=== PATIENT | male | born 1990 | race Hispanic/Latino ===

== ENCOUNTER 2020-04-13 20:29 | Emergency (ER) | payer OTHER ==
--- OUTSIDE RECORDS SUMMARY | 2020-04-13 20:32 | XMS REPORT | Continuity of Care Document ---
:1990 Author Organization [facility] t Address [address] [place] [address] Care Team Providers Name Role Phone Unavailable Unavailable Unavailable Problems This patient has no known problems. Allergies, Adverse Reactions, Alerts This patient has no known allergies or adverse reactions. Medications Ordered Filled Start Stop Current Ordering Indication Dosage Frequency Signature Comments Components Source Medication Medication Date Date Medication? Clinician (SIG) Name Name Omeprazole Omeprazole Yes Holger [address] [facility] 8[facility]24 Vasquez 30 minutes [facility] before [facility] 00 morning l meal Outpati ent Clinics Hyoscyamine Hyoscyamine Yes Holger [address] [facility] Sulfate SL Sulfate SL Vasquez under the [facility] tongue and [facility] allow to l dissolve Outpati as needed ent Clinics Ventolin Ventolin Yes Holger [address] [facility] HFA HFA [facility]quez needed [facility] ProAir HFA ProAir HFA Yes Holger INHALE [address] [facility] Vasquez PUFFS BY [facility] MOUTH [facility] EVERY 6 l HOURS Outpati NEEDED ent Clinics Procedures This patient has no known procedures. Encounters Start End Encounter Admission Attending Care Care Encounter Source Date/Time Date/Time Type Type Clinicians Facility Department ID 2020-03-20 2020-03-20 Outpatient [facility] [id number] [facility] 2019-12-13 2019-12-13 Outpatient [facility] [id number] [facility] 2019-12-12 2019-12-12 Outpatient [facility] [id number] [facility] 2019-11-06 2019-11-06 [facility] [id number] [facility] 09:54:00 09:54:00 [facility] [employer] [facility] - Drive [facility] Out[facility] Clin[facility] 2019-11-04 2019-11-04 [facility] [id number] [facility] 13:40:00 13:40:00 [facility] [employer] s - Drive [facility] Out[facility] Clinics 2019-05-02 2019-05-02 [facility] [id number] 08:18:00 08:18:00 t [employer] s - Drive [facility] Out[facility] Clinics 2019-04-03 2019-04-03 [facility] [id number] 09:30:00 09:30:00 t [employer] s - Drive [facility] Out[facility] Clinics 2019-03-20 2019-03-20 [facility] [id number] [address] 09:15:00 09:15:00 [facility] [employer] s - Drive [facility] Out[facility] Clin[facility] 2019-03-19 2019-03-19 [facility] [id number] [address] 16:57:00 16:57:00 [facility] [employer] s - Drive [facility] Out[facility] ent Clinics 2018-12-25 2018-12-25 [facility] [id number] 13:15:00 13:15:00 [facility] [employer] s - Drive [facility] Out[facility] Clinics 2018-09-24 2018-09-24 [facility] [id number] 14[facility]00:00 14:00:00 t [email or web address] s - Drive [facility] Outpati ent Clinics 2018-08-22 2018-08-22 [facility] [id number] [address] 14:45:00 14:45:00 t [employer] [facility] Outpati ent Clinics 2018-05-08 2018-05-08 [facility] [id number] 13:15:00 13:15:00 t [employer] [facility] Outpati ent Clinics 2017-10-04 2017-10-04 [facility] [id number] 11:00:00 11:00:00 t [employer] [facility] Outpati ent Clinics 2017-06-01 2017-06-01 [facility] [id number] 10:30:00 10:30:00 t [employer] [facility] Results This patient has no known results.
--- OUTSIDE RECORDS SUMMARY | 2020-04-13 20:32 | XMS REPORT ---
:1990 Author Organization [facility] Address [address], [address] [place] [address] Care Team Providers Name Role Phone Holger Vasquez Unavailable [phone] PROBLEMS Type Condition ICD9-CM MAS21-HJ Onset Condition SNOMED Code Notes Code Code Dates Status Problem Intermittent J45.20 Active 734817285 asthma without complication, unspecified asthma severity Problem Depression with F41.8 Active 346719247 anxiety Problem Seasonal allergic J30.2 Active 417393095 rhinitis, unspecified trigger Problem Erectile N52.9 Active 543385325 dysfunction, unspecified erectile dysfunction type Problem Adult BMI Z68.41 Active 789353457 40.0-44.9 kg/sq m Problem Subclinical E03.9 Active 21797804 hypothyroidism Problem Mild intermittent J45.20 Active 876542006 asthma without complication Problem Mood disorder F39 Active 84654520 Problem Leukocytosis, D72.829 Active 849355290 unspecified type Problem GERD without K21.9 Active 045201982 esophagitis Problem Mild intermittent J45.21 Active 056234497 asthma with acute exacerbation Problem Mixed E78.2 Active 904708427 hyperlipidemia Problem Fatty liver K76.0 Active 650107451 disease, nonalcoholic Problem Moderate J45.40 Active 476244623 persistent asthma without complication ALLERGIES No Known Allergies ENCOUNTERS from 1990 to 2020-03-20 Encounter Location Date Provider Diagnosis [facility] [address] [place], Holger Vasquez Moderate persistent Drive [address] [place], asthma [facility] [address] complication J 45.40 ; GERD without esophagitis K21 .9 ; Subclinical hypothyroidism E03.9 ; Fatty liver dis ease, nonalcoholic K7 6.0 ; Elevated LFTs R 94.5 ; Depression with anxiety F41.8 ; Mood di sorder F39 ; Seasonal allergic rhinitis, unspe cified trigger J30.2 ; Adult BMI 40.0-44.9 k g/sq m Z68.41 ; Mixed hyperlipidemia E78.2 ; Non-compliant b ehavior R46.89 and Leukocytosis, unspecified typ e D72.829 IMMUNIZATIONS Vaccine Route Administration Date Status Kenalog (Triamcinolone) IM Intramuscular Mar 20, 2019 Adminis tered SOCIAL HISTORY Tobacco Use: Social History Observation Description Date Details (start date - stop date) Never Smoker Sex Assigned At : Social History Observation Description Sex Assigned At Unknown PHQ9 Question Answer Notes Little interest or pleasure in doing things More than half t he days Feeling down, depressed, or hopeless More than half the days Trouble falling or staying asleep or sleeping too More than half the days much Feeling tired or having little energy Nearly every day Poor appetite or overeating Nearly every day Feeling bad about yourself, or that you are a More than half the days failure, or have let yourself or your family down Trouble concentrating on things, such as reading Several day s the newspaper or watching television Moving or speaking so slowly that other people Not at all could have noticed; or the opposite, being so fidgety or restless that you have been moving around a lot more than usual Total Score 15 Interpretation Moderately severe depression Thoughts that you would be better off or of Not at all hurting yourself in some way Alcohol Screen Question Answer Notes Did you have a drink containing alcohol in the past year? No Points 0 Interpretation Negative Tobacco Use/Smoking Question Answer Notes Are you a never smoker REASON FOR REFERRAL No Information VITAL SIGNS Height 65 in Mar, Weight 265 lbs Mar, Temperature 98.4 degrees Fahrenheit Mar, BMI 44.09 kg/m2 Mar, Blood pressure systolic 125 mm Hg Mar, Blood pressure diastolic 79 mm Hg Mar, MEDICATIONS Medication SIG (Take, Route, Notes Start Date End Date Status Frequency, Duration) Symbicort 80-4.5 MCG/ACT 2 puffs Inhalation Twice Active a day for 30 days Omeprazole 40 MG 1 capsule 30 minutes Active before morning meal Orally Once a day for 30 day(s) ProAir HFA 108 (90 Base) INHALE 2 PUFFS BY MOUTH Active MCG/ACT EVERY 6 HOURS NEEDED for 30 days Ventolin HFA 108 (90 Base) 2 puffs as needed Active MCG/ACT Inhalation every 6 hrs for 30 days Hyoscyamine Sulfate SL 1 tablet under the tongue Active 0.125 MG and allow to dissolve as needed Sublingual every 4 hrs PROCEDURES No Information RESULTS No Results REASON FOR VISIT 3 mth lab f/u MEDICAL (GENERAL) HISTORY Type Description Date Medical History GERD without esophagitis Medical History Depression with anxiety Medical History Mood disorder Medical History Intermittent asthma without complication , unspecified asthma severity Medical History Seasonal allergic rhinitis, unspecified trigger Goals Section No Information Health Concerns No Information MEDICAL EQUIPMENT No Information MENTAL STATUS No Information FUNCTIONAL STATUS No Information ASSESSMENTS Encounter Date Diagnosis Assessment Notes Treatment Notes Treatm ent Clinical Notes Mar, Moderate persistent Continue current asthma without regimen. side complication (ICD-10 effect panel - J45.40) discussed. Education given. Asthma action plan given. Mar, GERD without Start omeprazole 40 esophagitis (ICD-10 mg in the morning - K21.9) for the next 2 weeks and then titrate downwards. Side effect panel discussed. Discussed long-term impact of PPI usage., We have discussed the pathophysiology of reflux disease and we discussed lifestyle modifications to avoid reflux that include elevation head of the bed, avoid alcohol, avoid caffeine, avoid maintenance, avoid tight clothing, avoid eating within 3-4 hours before bedtime, and avoiding smoking. Mar, Subclinical Will repeat TSH. hypothyroidism Education given. If (ICD-10 - E03.9) elevated, will start treatment. Mar, Fatty liver disease, Discussed DDX. nonalcoholic (ICD-10 Education given. US - K76.0) reviewed with patient. Encouraged on weight loss and dietary changes. Mar, Elevated LFTs Asymptaomtic. (ICD-10 - R94.5) Discussed DDX. Education given. ?Fatty Liver. Will repeat. Mar, Depression with Strongly encouraged anxiety (ICD-10 - to make appt with F41.8) Rakel Swartz or Dayna Schuster. Education given. Recommended [facility] clinic as well. Declined any medications. Denies SI/HI. Mar, Mood disorder (ICD-10 - F39) Mar, Seasonal allergic Stable with OTC rhinitis, medication. unspecified trigger (ICD-10 - J30.2) Mar, Adult BMI 40.0-44.9 Counseling given. kg/sq m (ICD-10 - Education given. Z68.41) Mar, Mixed hyperlipidemia Diet controlled. (ICD-10 - E78.2) Education given. Mar, Non-compliant behavior (ICD-10 - R46.89) Mar, Leukocytosis, Discussed DDX. unspecified type Education given. (ICD-10 - D72.829) Asymptoamtic Mar, Other -- Medication reviewed and updated. -- Dietary and Lifestyle modifications addressed regarding diet, exercise and weight managemen t. -- Treatment options, risks and benefits, side effects reviewed in detail. -- Advised on signs/symptoms to monitor and when to call clinic and/or visit the nearest ER. Patient verbalized understanding and agreeable with plan. PLAN OF TREATMENT Medication Medication Name Sig Start Date Stop Date ProAir HFA 108 (90 Base) MCG/ACT INHALE 2 PUFFS BY MOUTH EVERY 6 HOURS NEEDED for 30 days Symbicort 80-4.5 MCG/ACT 2 puffs Inhalation Twice a day for 30 days Omeprazole 40 MG 1 capsule 30 minutes before morning meal Orally Once a day for 30 day(s) Treatment Notes Assessment Notes Clinical Notes Moderate persistent asthma without Continue current regimen. side complication effect panel discussed. Education given. Asthma action plan given. GERD without esophagitis Start omeprazole 40 mg in the morning for the next 2 weeks and then titrate downwards. Side effect panel discussed. Discussed long-term impact of PPI usage., We have discussed the pathophysiology of reflux disease and we discussed lifestyle modifications to avoid reflux that include elevation head of the bed, avoid alcohol, avoid caffeine, avoid maintenance, avoid tight clothing, avoid eating within 3-4 hours before bedtime, and avoiding smoking. Subclinical hypothyroidism Will repeat TSH. Education given. If elevated, will start treatment. Fatty liver disease, nonalcoholic Discussed DDX. Education moniuqe kwan. US reviewed with patient. Encouraged on weight loss and dietary changes. Elevated LFTs Asymptaomtic. Discussed DDX. Education given. ?Fatty Liver. Will repeat. Depression with anxiety Strongly encouraged to make appt with Rakel Swartz or Dayna Schuster. Education given. Recommended [facility] as well. Declined any medications. Denies SI/HI. Seasonal allergic rhinitis, Stable with OTC medication. unspecified trigger Adult BMI 40.0-44.9 kg/sq m Counseling given. Education give n. Mixed hyperlipidemia Diet controlled. Education given. Leukocytosis, unspecified type Discussed DDX. Education give n. Asymptoamtic Treatment Notes Test Name Order Date Lipid Panel With LDL/HDL Ratio 2020-03-20 Thyroid Panel With TSH 2020-03-20 Hematopath Consultation, Smear 2020-03-20 Comp. Metabolic Panel (14) (CMP) 2020-03-20 Next Appt Details 3 Months TV + Labs 1 week before Reason: Provider Name:Holger Vasquez, 2020-06-22 09:40:00 AM, [address], [place], [address], Insurance Providers Payer Name Payer Payer Insured Patient Coverage Coverage End Address Phone Name Relationship to Start Date Mitul e Insured [facility] [phone] Chris Asencio [place] [id number] [address] hard COUNT INCLUDES THE [facility] [phone]
[2020-04-13 21:46] LABS: Absolute Lymphocytes (CBC) 3.7 K/uL (0.7-4.9); Basophils % 0.7 % (0-1.3); Hematocrit 46.4 % (39.6-49.0); Lymphocytes % 32.2 % (15.3-44.8); MPV 8.9 fL (7.6-11.3); RBC Red Blood Cell Count 5.34 M/uL (4.33-5.43)
[2020-04-13] MEDS ORDERED: MAGNES/ALUMIN/SIMET 30ML UCUP ONE (21:46)
[2020-04-13] MEDS ORDERED: LIDOCAINE VISCOUS 2% SOLN 15 ML UDC ONE (21:46)
[2020-04-13 22:00] LABS: ALT/SGPT 71 U/L (12-78); AST/SGOT 36 U/L (15-37); Albumin 3.9 g/dL (3.4-5.0); Alkaline Phosphatase 56 U/L (45-117); BUN Blood Urea Nitrogen 6 mg/dL (7-18); Bicarbonate 27 mmol/L (21-32); Bilirubin Direct < 0.1 mg/dL (0-0.2); Bilirubin Total 0.4 mg/dL (0.2-1.0); Glucose Level 96 mg/dL (74-106); NT PRO-BNP 13 pg/mL (<125); Protein, Total 7.7 g/dL (6.4-8.2); Sodium Level 142 mmol/L (136-145); Troponin (Emerg Dept Use Only) < 0.02 ng/mL (0.0-0.045)
[2020-04-13 22:56] LABS: SARS-COV-2 RT PCR NEGATIVE (NEGATIVE)
--- NOTE | 2020-04-13 23:02 | EDPHYS ---
Physician Documentation [facility] Name: Kenton Asencio Age: 29 yrs Sex: Male : 1990 Arrival Date: 04/13/2020 Time: 20:33 Bed 7 Private MD: ED Physician Ayo Benson HPI: 04/13 21:28 This 29 yrs old Male presents to ER via Ambulatory with complaints of Chest rn Pain, Breathing Difficulty. 21:28 The patient or guardian reports chest pain that is located primarily in the substernal rn area. The pain does not radiate. Associated signs and symptoms: Pertinent negatives: abdominal pain, diaphoresis, lower extremity pain, lower extremity swelling, palpitations, shortness of breath, syncope, vomiting. The chest pain is described as aching. Duration: The patient or guardian reports multiple episodes, that are intermittent. Modifying factors: The symptoms are alleviated by nothing. the symptoms are aggravated by nothing. Severity of pain: At its worst the pain was mild in the emergency department the pain is unchanged. The patient has not experienced similar symptoms in the past. The patient has not recently seen a physician. Reports substernal chest pain, dull/achy, non-radiating, no fever/cough. No sick contacts. Reports pain can last for hours. No abd pain. NO famhx of early cardiac problems. No trauma. . Historical: - Allergies: 21:04 No Known Allergies; ca1 - Home Meds: 21:04 Omeprazole Oral [Active]; Albuterol Inhl [Active]; ca1 - PMHx: 21:04 Asthma; ca1 - PSHx: 21:04 None; ca1 - Immunization history:: Flu vaccine is not up to date. - Social history:: Smoking status: Patient denies any tobacco usage or history of. - Family history:: not pertinent. - Hospitalizations: : No recent hospitalization is reported. ROS: 21:28 Constitutional: Negative for fever, chills, and weight loss, Eyes: Negative for injury, rn pain, redness, and discharge, Neck: Negative for injury, pain, and swelling, Cardiovascular: Negative for palpitations, and edema, Respiratory: Negative for shortness of breath, cough, wheezing Abdomen/GI: Negative for abdominal pain, nausea, vomiting, diarrhea, and constipation, Back: Negative for injury and pain, MS/Extremity: Negative for injury and deformity, Skin: Negative for injury, rash, and discoloration, Neuro: Negative for headache, weakness, numbness, tingling, and seizure. Exam: 21:28 Constitutional: This is a well developed, well nourished patient who is awake, alert, rn and in no acute distress. Head/Face: Normocephalic, atraumatic. Cardiovascular: Tachycardic, regular. No pulse deficits. Respiratory: No increased work of breathing, no retractions or nasal flaring. Abdomen/GI: soft, non-tender Skin: Warm, dry MS/ Extremity: Pulses equal, no cyanosis. Neurovascular intact. Full, normal range of motion. Equal circumference. Neuro: Awake and alert, GCS 15, oriented to person, place, time, and situation. Vital Signs: 21:01 BP 123 / 70; Pulse 108; Resp 18 S; Temp 98.9(TE); Pulse Ox 99% on R/A; Weight 99.79 kg ca1 (R); Height 5 ft. 5 in. (165.10 cm) (R); Pain 0/10; 22:44 BP 114 / 75; Pulse 95; Resp 18; Pulse Ox 100% ; ea 21:01 Body Mass Index 36.61 (99.79 kg, 165.10 cm) ca1 MDM: 21:13 Patient medically screened. rn 22:59 Differential diagnosis: acute pericarditis, chest wall pain, costochondritis, rn gastroesophageal reflux disease (GERD), pleurisy, pneumonia, pneumothorax, pulmonary embolus. Data reviewed: vital signs, nurses notes, lab test result(s), EKG, radiologic studies, plain films, and as a result, I will discharge patient. Counseling: I had a detailed discussion with the patient and/or guardian regarding: the historical points, exam findings, and any diagnostic results supporting the discharge/admit diagnosis, lab results, radiology results, the need for outpatient follow up, to return to the emergency department if symptoms worsen or persist or if there are any questions or concerns that arise at home. Special discussion: Based on the patient's history, exam, and Dx evaluation, there is no indication for emergent intervention or inpatient Tx. It is understood by the patient/guardian that if the Sx's persist or worsen they need to return immediately for re-evaluation. I discussed with the patient/guardian in detail that at this point there is no indication for admission to the hospital. It is understood, however, that if the symptoms persist or worsen the patient needs to return immediately for re-evaluation. ED course: No acute findings in bloodwork or ecg/chest xray. Neg d-dimer, neg covid/flu. Will dc home with pcp f/u.. 04/13 21:21 Order name: Basic Metabolic Panel; Complete Time: 22:02 rn 04/13 21:21 Order name: CBC with Diff; Complete Time: 22: rn 04/13 21:21 Order name: LFT's; Complete Time: 22:02 rn 04/13 21:21 Order name: NT PRO-BNP; Complete Time: 22: rn 04/13 21:21 Order name: Troponin (emerg Dept Use Only); Complete Time: 22: rn 04/13 21:21 Order name: XRAY Chest (1 view) rn 04/13 21:21 Order name: EKG; Complete Time: 21:24 rn 04/13 21:21 Order name: Cardiac monitoring; Complete Time: 21:21 rn 04/13 21:21 Order name: EKG - Nurse/Tech; Complete Time: 21:21 rn 04/13 21:23 Order name: D-Dimer; Complete Time: 22:02 rn 04/13 22:57 Order name: COVID-19/FLU A+B; Complete Time: 22:59 EDWV 04/13 21:21 Order name: IV Saline Lock; Complete Time: 21:30 rn 04/13 21:21 Order name: Labs collected and sent; Complete Time: 21:30 rn 04/13 21:21 Order name: O2 Per Protocol; Complete Time: 21: rn 04/13 21:21 Order name: O2 Sat Monitoring; Complete Time: 21:21 rn Administered Medications: 21:32 Drug: GI Cocktail without - (Maalox Suspension 30 ml, Lidocaine Liquid 2 % 15 ea ml) Route: PO; 23:19 Follow up: Response: No adverse reaction ea Disposition: 04/13/20 23:01 Discharged to Home. Impression: Chest pain, unspecified. - Condition is Stable. - Discharge Instructions: Nonspecific Chest Pain. - Medication Reconciliation Form, Thank You Letter, Antibiotic Education, Prescription Opioid Use form. - Follow up: Private Physician; When: As needed; Reason: Recheck today's complaints, Re-evaluation by your physician. - Problem is new. - Symptoms have improved. Signatures: Dispatcher [employer] EDWV Ayo Benson MD MD rn Antunez, Elena RN Chelo Cota ea RN RN ca1 Corrections: (The following items were deleted from the chart) 21:58 21:26 Influenza Screen (A \T\ B)+BA.LAB.BRZ ordered. [facility] 23:21 23:01 04/13/2020 23:01 Discharged to Home. Impression: Chest pain, unspecified. ea Condition is Stable. Forms are Medication Reconciliation Form, Thank You Letter, Antibiotic Education, Prescription Opioid Use. Follow up: Private Physician; When: As needed; Reason: Recheck today's complaints, Re-evaluation by your physician. Problem is new. Symptoms have improved. rn
--- NOTE | 2020-04-13 23:02 | ER ---
Nurse's Notes [facility] Name: Kenton Asencio Age: 29 yrs Sex: Male : 1990 Arrival Date: 04/13/2020 Time: 20:33 Bed 7 Private MD: Diagnosis: Chest pain, unspecified Presentation: 04/13 21:01 Chief complaint: Patient states: Chest pain, SOB, fatigue x 2 days. Denies fever. ca1 Denies cough. Coronavirus screen: Client denies travel out of the [place] in the last 14 days. fatigue, shortness of breath, Client presents with at least one sign or symptom that may indicate coronavirus-19. Standard/surgical mask placed on the client. Provider contacted for isolation considerations. Ebola Screen: Patient negative for fever greater than or equal to 101.5 degrees Fahrenheit, and additional compatible Ebola Virus Disease symptoms Patient denies exposure to infectious person. Patient denies travel to an Ebola-affected area in the 21 days before illness onset. No symptoms or risks identified at this time. Initial Sepsis Screen: Does the patient meet any 2 criteria? No. Patient's initial sepsis screen is negative. Does the patient have a suspected source of infection? No. Patient's initial sepsis screen is negative. Risk Assessment: Do you want to hurt yourself or someone else? Patient reports no desire to harm self or others. Onset of symptoms was April 13, 2020. 21:01 Method Of Arrival: Ambulatory ca1 21:01 Acuity: MEREDITH 3 ca1 Historical: - Allergies: 21:04 No Known Allergies; ca1 - Home Meds: 21:04 Omeprazole Oral [Active]; Albuterol Inhl [Active]; ca1 - PMHx: 21:04 Asthma; ca1 - PSHx: 21:04 None; ca1 - Immunization history:: Flu vaccine is not up to date. - Social history:: Smoking status: Patient denies any tobacco usage or history of. - Family history:: not pertinent. - Hospitalizations: : No recent hospitalization is reported. Screenin:10 Abuse screen: Denies threats or abuse. Nutritional screening: No deficits noted. ea Tuberculosis screening: No symptoms or risk factors identified. Fall Risk None identified. Assessment: 21:17 General: Appears in no apparent distress. Behavior is calm, cooperative, appropriate ea for age. Pain: Complains of pain in mid-sternal area. Neuro: Level of Consciousness is awake, alert, obeys commands, Oriented to person, place, time. Cardiovascular: Patient's skin is warm and dry. Respiratory: Airway is patent Respiratory effort is even, unlabored, Respiratory pattern is regular, symmetrical. Derm: Skin is pink, warm \T\ dry. 22:44 Reassessment: Patient and/or family updated on plan of care and expected duration. Pain ea level reassessed. Patient is alert, oriented x 3, equal unlabored respirations, skin warm/dry/pink. 23:19 Reassessment: Patient and/or family updated on plan of care and expected duration. Pain ea level reassessed. Patient is alert, oriented x 3, equal unlabored respirations, skin warm/dry/pink. Discharge instruction given to patient, verbalized the understanding of instruction. Pt left ED ambulatory tolerating well. Vital Signs: 21:01 BP 123 / 70; Pulse 108; Resp 18 S; Temp 98.9(TE); Pulse Ox 99% on R/A; Weight 99.79 kg ca1 (R); Height 5 ft. 5 in. (165.10 cm) (R); Pain 0/10; 22:44 BP 114 / 75; Pulse 95; Resp 18; Pulse Ox 100% ; ea 21:01 Body Mass Index 36.61 (99.79 kg, 165.10 cm) ca1 ED Course: 20:33 Patient arrived in ED. bp1 21:03 Triage completed. ca1 21:04 Arm band placed on right wrist. ca1 21:10 Thad Bailey RN is Primary Nurse. rr5 21:11 Patient has correct armband on for positive identification. Bed in low position. Call ea light in reach. crane operator cab on. Pulse ox on. NIBP on. 21:11 Patient maintains SpO2 saturation greater than 95% on room air. ea 21:13 Ayo Benson MD is Attending Physician. rn 21:25 Inserted saline lock: 20 gauge in right antecubital area, using aseptic technique. ds4 Blood collected. 21:50 COVID swab sent to lab. Flu and/or RSV swab sent to lab. rr5 21:53 XRAY Chest (1 view) In Process Unspecified. EDMS 23:15 No provider procedures requiring assistance completed. IV discontinued, intact, ea bleeding controlled, No redness/swelling at site. Pressure dressing applied. Administered Medications: 21:32 Drug: GI Cocktail without - (Maalox Suspension 30 ml, Lidocaine Liquid 2 % 15 ea ml) Route: PO; 23:19 Follow up: Response: No adverse reaction ea Outcome: 23:01 Discharge ordered by . rn 23:20 Discharged to home ambulatory. ea 23:20 Condition: stable 23:20 Discharge instructions given to patient, Instructed on discharge instructions, follow ea up and referral plans. Demonstrated understanding of instructions, follow-up care. 23:21 Patient left the ED. ea Signatures: Dispatcher [employer] EDMS Ayo Benson MD MD rn Swanson, Donovan ds4 Guadalupe Colon RN RN ea Roque, Raymond, RN RN rr5 Chelo Ramos RN RN Haley Kinney bp1
[2020-04-14 03:12] VITALS: TEMP 98.9
[2020-04-14 03:13] VITALS: BP 114/75; O2SAT 100
--- NOTE | 2020-04-14 12:54 | EKG ---
Test Date: 2020-04-13 Test Time: 21:14:11 College And Career Counselor: RR MEASUREMENT RESULTS: Intervals: Rate: 111 [place]: 132 QRSD: 84 QT: 332 QTc: 451 [place]: P: 61 [place]: 132 QRS: 42 T: 26 INTERPRETIVE STATEMENTS: Sinus tachycardia Otherwise normal ECG Compared to ECG 01/05/2016 14:07:33 No significant changes Electronically Signed On 04-14-20 12:53:07 INDOOR LANDSCAPE ARCHITECT by Misael Ledesma
--- NOTE | 2020-04-14 13:06 | RAD REPORT ---
EXAM DESCRIPTION: XR Chest, 1 View CLINICAL HISTORY: CHEST PAIN TECHNIQUE: Frontal view of the chest. COMPARISON: No relevant prior studies available. FINDINGS: Lungs: No consolidation. Symmetrical vascular pattern. Pleural space: No pneumothorax. No pleural effusion. Heart: Normal cardiac size and configuration. Mediastinum: No abnormality noted. Bones/joints: No osseous destruction or sclerosis noted. IMPRESSION: No abnormality noted. Electronically signed by: Randi Layne MD 04/13/2020 10:01 PM OUTBOUND SALES SPECIALIST Due to temporary technical issues with the PACS/Fluency reporting system, reports are being signed by the in house radiologists without review as a courtesy to insure prompt reporting. The interpreting radiologist is fully responsible for the content of the report.
== END 2020-04-13 23:21 | disposition home or self-care (01) ==
LOC: ER 20:29
DX: R07.9 Chest pain, unspecified (principal); J45.909 Unspecified asthma, uncomplicated; Z20.822 Contact with and (suspected) exposure to COVID-19
CPT/HCPCS: 93005; 85025; 80048; 36415; 85379; 80076; 84484; 83880; 0240U; 71045; 99285

== ENCOUNTER 2021-02-19 17:09 | Emergency (ER) | payer OTHER ==
--- OUTSIDE RECORDS SUMMARY | 2021-02-19 17:11 | XMS REPORT | Continuity of Care Document ---
:1990 Author Organization [facility] t Address [address] [place] [address] Care Team Providers Name Role Phone Unavailable [...] Date/Time Type Type Clinicians Facility Department ID 2021-02-18 2021-02-18 ambulatory [facility] [id number] [facility] 2020-09-17 2020-09-17 Outpatient [facility] [id number] [facility] 2020-07-30 2020-07-30 [facility] [id number] [facility] 2020-06-12 2020-06-12 Out[facility] [id number] [facility] 2020-06-12 2020-06-12 [facility] [id number] [facility] 2020-06-02 2020-06-02 Out[facility] [id number] [facility] 2020-05-28 2020-05-28 Out[facility] [id number] [facility] 2020-03-20 2020-03-20 Out[facility] [id number] [facility] 2019-12-13 2019-12-13 Out[facility] [id number] [facility] 2019-12-12 2019-12-12 Out[facility] [id number] [facility] 2019-11-06 2019-11-06 [facility] [id number] [facility] 09:54:00 09:54:[address] [place] [address] [employer] [facility] 2019-11-04 2019-11-04 [facility] [id number] [facility] 13:40:00 13:40:[address] [address] [employer] [address] - Drive [facility] Clinics 2019-05-02 2019-05-02 [facility] [id number] [facility] 08:18:00 08:18:[address] [place] [address] [employer] [address] - [address] [facility] Outpat[facility] Clinics 2019-04-03 2019-04-03 [facility] [id number] [facility] 09:30:00 09:30:00 [place] [employer] - [address] [facility] Medicine Outpati ent Clinics 2019-03-20 2019-03-20 [facility] [id number] 09:15:00 09:15:00 [place] [employer] [address] [facility] Outpati [facility] Clinics 2019-03-19 2019-03-19 [facility] [id number] [facility] 16:57:00 16:57:00 [place] [employer] [address] [facility] Medicine Outpati [facility] Clinics 2018-12-25 2018-12-25 [facility] [id number] [address] 13:15:00 13:15:00 [place] [employer] [address] [facility] Outpati [facility] Clinics 2018-09-24 2018-09-24 [facility] [id number] 14:00:00 14:00:00 [place] [employer] [address] [facility] Medicine Outpati ent Clinics 2018-08-22 2018-08-22 [facility] [id number] [facility] 14:45:00 14:45:00 [place] [employer] [address] - [address] [facility] Medicine Outpati ent Clinics 2018-05-08 2018-05-08 [facility] [id number] [facility] 13:15:00 13:15:00 [place] [employer] [address] [facility] Medicine Outpati ent Clinics 2017-10-04 2017-10-04 [facility] [id number] 11:00:00 11:00:00 [place] [employer] [address] [facility] Medicine Outpati ent Clinics 2017-06-01 2017-06-01 [facility] [id number] 10:30:00 10:30:00 [place] [employer] [address] [facility] Medicine Outpati [facility] Clinics Results This patient has no known results.
[2021-02-19 20:00] LABS: SARS-COV-2 RT PCR NEGATIVE (NEGATIVE)
--- NOTE | 2021-02-19 20:57 | ER ---
Nurse's Notes [facility] Name: Kenton Asencio Age: 30 yrs Sex: Male : 1990 Arrival Date: 02/19/2021 Time: 17:11 Bed 18 Private MD: Diagnosis: Chest pain on breathing;Chest pain, unspecified Presentation: 02/19 18:22 Chief complaint: Patient states: dry cough, breathing difficulty and chest tightness x4 vg1 days. States when taking a deep breath has a 'stinging' sensation to upper right side of chest. States has hx of bronchitis and pneumonia. Denies NVD. Coronavirus screen: Vaccine status: Patient reports being unvaccinated. Client denies travel out of the [place] in the last 14 days. Client presents with at least one sign or symptom that may indicate coronavirus-19. Standard/surgical mask placed on the client. Provider contacted for isolation considerations. Ebola Screen: Patient negative for fever greater than or equal to 101.5 degrees Fahrenheit, and additional compatible Ebola Virus Disease symptoms. Initial Sepsis Screen: Does the patient meet any 2 criteria? No. Patient's initial sepsis screen is negative. Does the patient have a suspected source of infection? No. Patient's initial sepsis screen is negative. Risk Assessment: Do you want to hurt yourself or someone else? Patient reports no desire to harm self or others. Onset of symptoms was February 15, 2021. 18:22 Method Of Arrival: Ambulatory vg1 18:22 Acuity: MEREDITH 3 vg1 Triage Assessment: 18:24 General: Appears in no apparent distress. comfortable, Behavior is calm, cooperative. vg1 Pain: Complains of pain in anterior aspect of right upper chest Pain currently is 0 out of 10 on a pain scale. Respiratory: Reports cough that is dry, Airway is patent Respiratory effort is even, unlabored. Historical: - Allergies: 18:24 No Known Allergies; vg1 - Home Meds: 18:24 Albuterol Inhl [Active]; Omeprazole Oral [Active]; vg1 - PMHx: 18:24 Asthma; vg1 - PSHx: 18:24 None; vg1 - Immunization history:: Client reports having NOT received the Covid vaccine. - Social history:: Smoking status: Patient denies any tobacco usage or history of. - Family history:: not pertinent. Screenin:11 Abuse screen: Denies threats or abuse. Denies injuries from another. Nutritional 5 screening: No deficits noted. Tuberculosis screening: No symptoms or risk factors identified. Fall Risk None identified. Assessment: 22:44 General: Appears in no apparent distress. Behavior is calm, cooperative. Pain: 5 Complains of pain in chest Pain does not radiate. Quality of pain is described as crushing, Pain began 2-3 days ago. Neuro: Level of Consciousness is awake, alert, Oriented to person, place, time, situation. Cardiovascular: Reports chest pain, shortness of breath, Capillary refill < 3 seconds Patient's skin is warm and dry. Respiratory: Reports shortness of breath Airway is patent Trachea midline Respiratory effort is even, unlabored. GI: No deficits noted. : No deficits noted. 23:00 Reassessment: No changes from previously documented assessment. 5 02/20 00:00 Reassessment: No changes from previously documented assessment. [facility] Vital Signs: 02/19 18:22 BP 123 / 82; Pulse 92; Resp 16; Temp 98.6; Pulse Ox 98% ; Weight 129.27 kg; Height 5 vg1 ft. 5 in. (165.10 cm); Pain 0/10; 22:47 BP 130 / 87; Pulse 71; Resp 18; Pulse Ox 100% on R/A; 5 02/20 00:00 BP 132 / 80; Pulse 90; Resp 18; Pulse Ox 99% on R/A; 5 02/19 18:22 Body Mass Index 47.43 (129.27 kg, 165.10 cm) 1 ED Course: 02/19 17:11 Patient arrived in ED. as 18:24 Triage completed. vg1 18:24 Arm band placed on. vg1 18:28 COVID swab sent to lab. Flu and/or RSV swab sent to lab. vg1 20:52 Phil Talley MD is Attending Physician. [facility] 21:12 Sepideh Harmon, XI is Primary Nurse. 5 22:08 Troponin (emerg Dept Use Only) Sent. 5 22:09 PT-INR Sent. sm5 22:09 NT PRO-BNP Sent. sm5 22:09 Magnesium Sent. 5 22:09 LFT's Sent. 5 22:09 CBC with Diff Sent. sm5 22:09 Basic Metabolic Panel Sent. sm5 22:09 Lipase Sent. sm5 22:10 Inserted saline lock: 20 gauge in right antecubital area, using aseptic technique. sm5 Blood collected. 22:11 Patient has correct armband on for positive identification. Bed in low position. Call sm5 light in reach. media monitor on. Pulse ox on. NIBP on. 22:11 No provider procedures requiring assistance completed. Patient maintains SpO2 sm5 saturation greater than 95% on room air. 22:21 XRAY Chest (1 view) Sent. sm5 22:27 XRAY Chest (1 view) In Process Unspecified. EDCA 02/20 00:01 CT Chest For PE Angio In Process Unspecified. EDCA 00:34 Misael Ledesma MD is Referral Physician. [facility] 00:51 IV discontinued, intact, bleeding controlled, No redness/swelling at site. Pressure sm5 dressing applied. Administered Medications: 02/19 22:20 Drug: NS 0.9% 1000 ml Route: IV; Rate: 1 bolus; Site: right antecubital; sm5 23:15 Follow up: IV Status: Completed infusion; IV Intake: 1000ml sm5 22:20 Drug: Aspirin Chewable Tablet 324 mg Route: PO; sm5 12 00:51 Follow up: Response: No adverse reaction sm5 Intake: 02/19 23:15 IV: 1000ml; Total: 1000ml. 5 Outcome: 20:57 Patient left the ED. ld1 02/20 00:34 Discharge ordered by . harpreet 00:50 Discharged to home ambulatory. sm5 00:50 Condition: good 00:50 Discharge instructions given to patient, Instructed on discharge instructions, follow up and referral plans. medication usage, Demonstrated understanding of instructions, follow-up care, medications, Prescriptions given X 2. 00:51 Patient left the ED. 5 Signatures: Dispatcher [employer] [facility] Phil Talley MD MD cha Martinez, Amelia as Garcia, Victoria, RN RN vg1 Sakina Jacome RN RN ld1 Sepideh Harmon, XI RN sm5 Corrections: (The following items were deleted from the chart) 02/19 21:06 20:56 Reassessment: Called from lobby. Pt was not here. ld1 ld1
[2021-02-19 21:03] VITALS: TEMP 98.6
[2021-02-19] MEDS ORDERED: NA CHLORIDE 0.9% 1,000 ML ONE (22:14)
[2021-02-19] MEDS ORDERED: ASPIRIN 81 MG CHEWABLE TABLET ONE (22:14)
[2021-02-19 22:18] LABS: Basophils % 0.5 % (0-1.3); Hematocrit 47.8 % (39.6-49.0); Lymphocytes % 23.2 % (15.3-44.8); MPV 8.3 fL (7.6-11.3); RBC Red Blood Cell Count 5.42 M/uL (4.33-5.43)
[2021-02-19 22:36] LABS: Protime INR 1.03
[2021-02-19 22:40] LABS: ALT/SGPT 47 U/L (12-78); Albumin 3.9 g/dL (3.4-5.0); Alkaline Phosphatase 50 U/L (45-117); BUN Blood Urea Nitrogen 12 mg/dL (7-18); Bicarbonate 27 mmol/L (21-32); Bilirubin Direct 0.1 mg/dL (0-0.2); Bilirubin Total 0.5 mg/dL (0.2-1.0); Glucose Level 91 mg/dL (74-106); Lipase 96 U/L (73-393); NT PRO-BNP 13 pg/mL (<125); Protein, Total 7.8 g/dL (6.4-8.2); Sodium Level 141 mmol/L (136-145); Troponin (Emerg Dept Use Only) < 0.02 ng/mL (0.0-0.045)
[2021-02-19 22:41] LABS: AST/SGOT 25 U/L (15-37); Magnesium 2.4 mg/dL (1.8-2.4); Potassium 4.3 mmol/L (3.5-5.1)
--- NOTE | 2021-02-20 00:36 | EDPHYS ---
Physician Documentation [facility] Name: Kenton Asencio Age: 30 yrs Sex: Male : 1990 Arrival Date: 02/19/2021 Time: 17:11 Bed 18 Private MD: ED Physician Phil Talley HPI: 02/19 21:52 This 30 yrs old Male presents to ER via Ambulatory with complaints of Chest harpreet Pressure, Breathing Difficulty. 21:52 The patient or guardian reports chest pain that is located primarily in the substernal harpreet area, anterior chest wall, right. The pain does not radiate. Associated signs and symptoms: Pertinent positives: shortness of breath. The chest pain is described as sharp. Duration: The patient or guardian reports multiple episodes, that wax and wane. Modifying factors: The symptoms are alleviated by remaining still, the symptoms are aggravated by deep breath, movement. The patient has not experienced similar symptoms in the past. Historical: - Allergies: 18:24 No Known Allergies; vg1 - Home Meds: 18:24 Albuterol Inhl [Active]; Omeprazole Oral [Active]; vg1 - PMHx: 18:24 Asthma; vg1 - PSHx: 18:24 None; vg1 - Immunization history:: Client reports having NOT received the Covid vaccine. - Social history:: Smoking status: Patient denies any tobacco usage or history of. - Family history:: not pertinent. ROS: 21:52 Constitutional: Negative for fever, chills, and weight loss, Eyes: Negative for injury, harpreet pain, redness, and discharge, ENT: Negative for injury, pain, and discharge, Neck: Negative for injury, pain, and swelling, Cardiovascular: Negative for chest pain, palpitations, and edema, Abdomen/GI: Negative for abdominal pain, nausea, vomiting, diarrhea, and constipation, Back: Negative for injury and pain, : Negative for injury, bleeding, discharge, and swelling, MS/Extremity: Negative for injury and deformity, Skin: Negative for injury, rash, and discoloration, Neuro: Negative for headache, weakness, numbness, tingling, and seizure, Psych: Negative for depression, anxiety, suicide ideation, homicidal ideation, and hallucinations, Allergy/Immunology: Negative for hives, rash, and allergies, Endocrine: Negative for neck swelling, polydipsia, polyuria, polyphagia, and marked weight changes, Hematologic/Lymphatic: Negative for swollen nodes, abnormal bleeding, and unusual bruising. 21:52 Respiratory: Positive for cough, shortness of breath, at rest. Exam: 21:52 Constitutional: This is a well developed, well nourished patient who is awake, alert, harpreet and in no acute distress. Head/Face: Normocephalic, atraumatic. Eyes: Pupils equal round and reactive to light, extra-ocular motions intact. Lids and lashes normal. Conjunctiva and sclera are non-icteric and not injected. Cornea within normal limits. Periorbital areas with no swelling, redness, or edema. ENT: Nares patent. No nasal discharge, no septal abnormalities noted. Tympanic membranes are normal and external auditory canals are clear. Oropharynx with no redness, swelling, or masses, exudates, or evidence of obstruction, uvula midline. Mucous membranes moist. Neck: Trachea midline, no thyromegaly or masses palpated, and no cervical lymphadenopathy. Supple, full range of motion without nuchal rigidity, or vertebral point tenderness. No Meningismus. Chest/axilla: Normal chest wall appearance and motion. Nontender with no deformity. No lesions are appreciated. Cardiovascular: Regular rate and rhythm with a normal S1 and S2. No gallops, murmurs, or rubs. Normal PMI, no JVD. No pulse deficits. Respiratory: Lungs have equal breath sounds bilaterally, clear to auscultation and percussion. No rales, rhonchi or wheezes noted. No increased work of breathing, no retractions or nasal flaring. Abdomen/GI: Soft, non-tender, with normal bowel sounds. No distension or tympany. No guarding or rebound. No evidence of tenderness throughout. Back: No spinal tenderness. No costovertebral tenderness. Full range of motion. Skin: Warm, dry with normal turgor. Normal color with no rashes, no lesions, and no evidence of cellulitis. MS/ Extremity: Pulses equal, no cyanosis. Neurovascular intact. Full, normal range of motion. Neuro: Awake and alert, GCS 15, oriented to person, place, time, and situation. Cranial nerves II-XII grossly intact. Motor strength 5/5 in all extremities. Sensory grossly intact. Cerebellar exam normal. Normal gait. Psych: Awake, alert, with orientation to person, place and time. Behavior, mood, and affect are within normal limits. 21:54 Musculoskeletal/extremity: DVT Exam: No signs of deep vein thrombosis. no pain, no harpreet swelling, no tenderness, negative Homans' sign noted on exam, no appreciated bluish discoloration, no erythema, no increased warmth. 22:23 ECG was reviewed by the Attending Physician. [facility] Vital Signs: 18:22 BP 123 / 82; Pulse 92; Resp 16; Temp 98.6; Pulse Ox 98% ; Weight 129.27 kg; Height 5 vg1 ft. 5 in. (165.10 cm); Pain 0/10; 22:47 BP 130 / 87; Pulse 71; Resp 18; Pulse Ox 100% on R/A; sm5 02/20 00:00 BP 132 / 80; Pulse 90; Resp 18; Pulse Ox 99% on R/A; sm5 02/19 18:22 Body Mass Index 47.43 (129.27 kg, 165.10 cm) vg1 MDM: 02/19 20:52 Patient medically screened. [facility] 21:54 Differential diagnosis: abnormal EKG, acute myocardial infarction, coronary artery harpreet disease chest wall pain, congestive heart failure esophagitis, gastritis, hiatal hernia, pancreatitis, pneumonia, pulmonary embolus, stable angina, unstable angina. HEART Score: History: Slightly Suspicious (0), ECG: Normal (0), Age: < or = 45 years (0), Risk Factors: No Risk Factors Known (0). The patient's deep vein thrombosis risk score was calculated as follows: Total Score: 0. This patient was found to be at low risk for a deep vein thrombosis by using the Well's assessment criteria. The patient's pulmonary embolism risk score was calculated as follows: Total Score: 0-2 points. This patient was found to be at low risk for a pulmonary embolism by using the Well's assessment criteria. SCHUYLER Risk Score: TOTAL SCORE = 0. Data reviewed: vital signs, nurses notes, lab test result(s), EKG, radiologic studies, CT scan, plain films. Data interpreted: surveillance monitor: rate is 92 beats/min, rhythm is regular, Pulse oximetry: on room air is 98 %. Test interpretation: by ED physician or midlevel provider: ECG, plain radiologic studies. Counseling: I had a detailed discussion with the patient and/or guardian regarding: the historical points, exam findings, and any diagnostic results supporting the discharge/admit diagnosis, lab results, radiology results, the need for outpatient follow up, for definitive care, a research scholar, a family practitioner. 02/19 18:28 Order name: COVID-19/FLU A+B (Document "Date of Onset" if Symptomatic); Complete Time: vg1 21:51 02/19 21:52 Order name: Basic Metabolic Panel; Complete Time: 00:06 [facility] 02/19 21:52 Order name: CBC with Diff; Complete Time: 00:06 [facility] 02/19 21:52 Order name: LFT's; Complete Time: 00:06 [facility] 02/19 21:52 Order name: Magnesium; Complete Time: 00: [facility] 02/19 21:52 Order name: NT PRO-BNP; Complete Time: 00:06 [facility] 02/19 21:52 Order name: PT-INR; Complete Time: 00:06 [facility] 02/19 21:52 Order name: Troponin (emerg Dept Use Only); Complete Time: 00:06 [facility] 02/19 21:52 Order name: XRAY Chest (1 view) [facility] 02/19 21:52 Order name: EKG; Complete Time: : [facility] 02/19 21:52 Order name: CT Chest For PE Angio [facility] 02/19 21:52 Order name: Lipase; Complete Time: 00:06 [facility] 02/19 21:52 Order name: Cardiac monitoring; Complete Time: 22:21 [facility] 02/19 21:52 Order name: EKG - Nurse/Tech; Complete Time: 22: [facility] 02/19 21:52 Order name: IV Saline Lock; Complete Time: 22: [facility] 02/19 21:52 Order name: Labs collected and sent; Complete Time: 22: [facility] 02/19 21:52 Order name: O2 Per Protocol; Complete Time: 22: [facility] 02/19 21:52 Order name: O2 Sat Monitoring; Complete Time: 22: [facility] EC:23 Rate is 81 beats/min. Rhythm is regular. QRS [place] is Normal. IN interval is normal. QRS harpreet interval is normal. QT interval is normal. No Q waves. T waves are Normal. No ST changes noted. Clinical impression: NSR w/ Non-specific ST/T Changes and No evidence of ischemia. Interpreted by me. Reviewed by me. Administered Medications: 22:20 Drug: NS 0.9% 1000 ml Route: IV; Rate: 1 bolus; Site: right antecubital; 5 23:15 Follow up: IV Status: Completed infusion; IV Intake: 1000ml 5 22:20 Drug: Aspirin Chewable Tablet 324 mg Route: PO; 5 02/20 00:51 Follow up: Response: No adverse reaction [facility] Disposition Summary: 02/20/21 00:34 Discharge Ordered Location: Home harpreet Problem: new harpreet Symptoms: have improved harpreet Condition: Stable harpreet Diagnosis - Chest pain on breathing harpreet - Chest pain, unspecified harpreet Followup: harpreet - With: Private Physician - When: 2 - 3 days - Reason: Recheck today's complaints, Continuance of care, Re-evaluation by your physician Followup: harpreet - With: - When: 2 - 3 days - Reason: Recheck today's complaints, Re-evaluation by your physician Discharge Instructions: - Discharge Summary Sheet harpreet - Nonspecific Chest Pain, Adult harpreet - Nonspecific Chest Pain, Adult, [id number] - Aspirin and Your Heart [facility] Forms: - Medication Reconciliation Form [facility] - Thank You Letter [facility] - Antibiotic Education harpreet - Prescription Opioid Use [facility] Prescriptions: - Ibuprofen 600 mg Oral Tablet - take 1 tablet by ORAL route every 6 hours As needed take with food; 21 tablet; [facility] Refills: 0, Product Selection Permitted - Pepcid 20 mg Oral Tablet - take 1 tablet by ORAL route every 12 hours for 10 days; 20 tablet; Refills: 0, [facility] Product Selection Permitted Signatures: Dispatcher [employer] Phil Irvin MD MD cha Garcia, Victoria RN RN vg1 Sakina Jacome RN RN ld1 Sepideh Harmon RN RN sm5 Corrections: (The following items were deleted from the chart) 02/19 21:05 20:56 before being seen by provider 1 ld1 21:05 20:56 wait time [place] [id number]
[2021-02-20 01:06] VITALS: BP 132/80; O2SAT 99
--- NOTE | 2021-02-20 07:59 | RAD REPORT ---
EXAM DESCRIPTION: RAD - Chest Single View - 02/19/2021 10:27 pm CLINICAL HISTORY: COUGH COMPARISON: Chest Single View dated 04/13/2020; Chest Single View dated 01/06/2016; Chest Pa And Lat ( 2 Views) dated 01/05/2016; CHEST SINGLE VIEW dated 09/09/2012 FINDINGS: Lines: None. Lungs: No evidence of edema or pneumonia. Pleural: No significant pleural effusions or pneumothorax. Cardiac: The heart size is within normal limits. Bones: No acute fractures. Other: IMPRESSION: No acute cardiopulmonary disease.
--- NOTE | 2021-02-20 17:33 | RAD REPORT ---
EXAM DESCRIPTION: CT - Chest For Pe Angio - 02/20/2021 6:24 am CLINICAL HISTORY: 30 years, Male, CHEST PAIN COMPARISON: 09/10/2012 TECHNIQUE: Multiple transaxial tomograms of the chest were obtained from the lung apices through the lung bases utilizing 2 mm slice thickness at 2 mm interval reconstruction after the administration o f large bolus of IV contrast for complete opacification of the pulmonary arteries. Subsequent 3-D maximum intensity projection images were generated in the coronal and sagittal plane f or review. This exam was performed according to our departmental dose-optimization protocol, which includes auto mated exposure control, adjustment of the mA and/or kV according to patient size and/or use of iterat jacy reconstruction technique. FINDINGS: The lungs parenchyma demonstrate to be clear. No masses, nodules and/or consolidations are identified. The trachea mainstem bronchus demonstrate to be normal. There is no significant perica rdial or pleural effusions. The thoracic aorta demonstrate to very minimal intimal calcification. There is no evidence for signif icant thoracic aortic dissection and/or aneurysm. The heart is normal in size. No evidence for right ventricular strain. There are no significant coronary artery calcifications. There is no significant mediastinal and/or hilar lymphadenopathy. The axillary regions demonstrate to be clear. Pulmonary arteries demonstrate to be normal, no intraluminal defect are seen that would suggest pulmo nary embolus. The bone windows demonstrate no significant skeletal lesions. The visualized portions of the upper abdomen demonstrate to be unremarkable. IMPRESSION: No evidence for pulmonary embolism and/or significant thoracic aortic dissection. Otherwise unremarkable CT scan of the chest with contrast. Electronically signed by: Yamil Perdue MD 02/20/2021 12:25 AM EDGE KITTER Due to temporary technical issues with the PACS/Fluency reporting system, reports are being signed by the in house radiologists without review as a courtesy to insure prompt reporting. The interpreting radiologist is fully responsible for the content of the report.
== END 2021-02-20 00:51 | disposition home or self-care (01) ==
LOC: ER 17:09
DX: R07.1 Chest pain on breathing (principal); R07.9 Chest pain, unspecified; Z20.822 Contact with and (suspected) exposure to COVID-19
CPT/HCPCS: 93005; 85025; 80048; 36415; 83735; 85610; 80076; 84484; 83690; 83880; 0240U; 71275; 71045; 96360; 99285; Q9967; J7030

== ENCOUNTER 2022-05-13 12:04 | Emergency (ER) | payer OTHER ==
--- OUTSIDE RECORDS SUMMARY | 2022-05-13 12:07 | XMS REPORT | Continuity of Care Document ---
:1990 Author Organization [facility] t Address [address] [facility]. [address] [place] [address] Care Team Providers Name Role Phone Holger Vasquez Attending Clinician Unavailable AMBREEN_FARSAMIRA Attending Clinician Unavailable AMBREEN_FARSAMIRA Admitting Clinician Unavailable Payers Payer Name Policy Type Policy Number Effective Date Expiration Date S [place] [id number] [facility] [place] [id number] [facility] [place] [id number] [facility] [place] [id number] [facility] [place] [id number] [facility] [place] [id number] [facility] Problems Condition Condition Condition Status Onset Resolution Last Treating Co mments Source Name Details Category Date Date Treatment Clinician Date [id number] Intermitte Problem Active Co mmon nt asthma Spirit without [facility] severity [id number] Depression Problem Active Co mmon with Spirit anxiety - [facility] [id number] Seasonal Problem Active Comm on allergic Spirit rhinitis, - [facility] [id number] Erectile Problem Active Comm on dysfunctio Spirit n, - [facility] [id number] Adult BMI Problem Active Com mon 40.0-44.9 Spirit kg/sq m - [facility] [id number] Subclinica Problem Active Com mon l Spirit hypothyroi - [facility] dism [facility] [id number] Mild Problem Active Common intermitte [facility] [id number] Mood Problem Active Common disorder [facility] [id number] Leukocytos Problem Active Co mmon is, Spirit unspecifie - [facility] d type [facility] [id number] GERD Problem Active Common without Spirit esophagiti - [facility] s [facility] [id number] Mixed Problem Active Common hyperlipid Spirit emia [facility] [id number] Fatty Problem Active Common liver Spirit disease, - [facility] nonalcohol [facility] [id number] Moderate Problem Active Comm on persistent Spirit asthma - [facility] without [facility] [id number] Moderate Problem Active Com mon [address] persistent Spirit asthma - [facility] with acute [facility] Allergies, Adverse Reactions, Alerts This patient has no known allergies or adverse reactions. Social History Social Habit Start Date Stop Date Quantity Comments Source History of Tobacco Use Co mmon [facility] Sex Assigned At Com mon [facility] Smoking Status Start Date Stop Date Source Never Smoker Common [facility] Medications Ordered Filled Start Stop Current Ordering Indication Dosage Frequency Signature Comments Components Source Medication Medication Date Date Medication? Clinician (SIG) Name Name PredniSONE PredniSONE 2020- No 2{table QD PredniSONE 20 MG 20 MG 06-12 t} 20 MG 00:00: 00:00 00 :00 PredniSONE PredniSONE 2020-0 2020- No 2{table QD PredniSONE 20 MG 20 MG 06-12 t} 20 MG 00:00: 00:00 00 :00 Omeprazole Omeprazole 2019-0 Yes Holger 1 capsule Common 8-24 Vasquez 30 minutes Spirit 00:00: before - [facility] morning [facility] Kenalog Kenalog 2019-0 No 40mg Common (Triamcinol (Triamcinol 1-08 S pirit one) one) 00:00: - [facility] Hyoscyamine Hyoscyamine Yes Holger 1 tablet Common Sulfate SL Sulfate SL Vasquez under the Spirit tongue and - [facility] allow to [facility] needed [facility] Ventolin Ventolin Yes Holger 2 puffs as Common HFA HFA Vasquez needed Spirit - [facility] ProAir HFA ProAir HFA Yes Holger INHALE 2 Common Vasquez PUFFS BY Spirit MOUTH - [facility] EVERY [facility] Symbicort Symbicort No 2{puffs BID Symbicort 80-4.5 80-4.5 } 80-4.5 MCG/ACT MCG/ACT MCG/ACT Hyoscyamine Hyoscyamine No 1{table 6xD Hyoscyamin Sulfate SL Sulfate SL t_under e Sulfate 0.125 MG 0.125 MG _the_to SL 0.125 ngue_an MG d_allow _to_dis solve_a s_neede d} Ventolin Ventolin No 2{puffs QID Ventolin HFA 108 (90 HFA 108 (90 _as_nee HFA 108 Base) Base) ded} (90 Base) MCG/ACT MCG/ACT MCG/ACT Omeprazole Omeprazole No QD Omeprazole 40 MG 40 MG 40 MG Symbicort Symbicort No 2{puffs BID Symbicort 80-4.5 80-4.5 } 80-4.5 MCG/ACT MCG/ACT MCG/ACT ProAir HFA ProAir HFA No ProAir HFA 108 (90 108 (90 108 (90 Base) Base) Base) MCG/ACT MCG/ACT MCG/ACT Symbicort Symbicort No 2{puffs BID Symbicort 80-4.5 80-4.5 } 80-4.5 MCG/ACT MCG/ACT MCG/ACT Ventolin Ventolin No 2{puffs QID Ventolin HFA 108 (90 HFA 108 (90 _as_nee HFA 108 Base) Base) ded} (90 Base) MCG/ACT MCG/ACT MCG/ACT Omeprazole Omeprazole No QD Omeprazole 40 MG 40 MG 40 MG Hyoscyamine Hyoscyamine No 1{table 6xD Hyoscyamin Sulfate SL Sulfate SL t_under e Sulfate 0.125 MG 0.125 MG _the_to SL 0.125 ngue_an MG d_allow _to_dis solve_a s_neede d} Omeprazole Omeprazole No QD Omeprazole 40 MG 40 MG 40 MG Ventolin Ventolin No 2{puffs QID Ventolin HFA 108 (90 HFA 108 (90 _as_nee HFA 108 Base) Base) ded} (90 Base) MCG/ACT MCG/ACT MCG/ACT Symbicort Symbicort No 2{puffs BID Symbicort 80-4.5 80-4.5 } 80-4.5 MCG/ACT MCG/ACT MCG/ACT Omeprazole Omeprazole No QD Omeprazole 40 MG 40 MG 40 MG Hyoscyamine Hyoscyamine No 1{table 6xD Hyoscyamin Sulfate SL Sulfate SL t_under e Sulfate 0.125 MG 0.125 MG _the_to SL 0.125 ngue_an MG d_allow _to_dis solve_a s_neede d} Omeprazole Omeprazole No QD Omeprazole 40 MG 40 MG 40 MG ProAir HFA ProAir HFA No ProAir HFA 108 (90 108 (90 108 (90 Base) Base) Base) MCG/ACT MCG/ACT MCG/ACT Ventolin Ventolin No 2{puffs QID Ventolin HFA 108 (90 HFA 108 (90 _as_nee HFA 108 Base) Base) ded} (90 Base) MCG/ACT MCG/ACT MCG/ACT Omeprazole Omeprazole No QD Omeprazole 40 MG 40 MG 40 MG Hyoscyamine Hyoscyamine No 1{table 6xD Hyoscyamin Sulfate SL Sulfate SL t_under e Sulfate 0.125 MG 0.125 MG _the_to SL 0.125 ngue_an MG d_allow _to_dis solve_a s_neede d} Omeprazole Omeprazole No QD Omeprazole 40 MG 40 MG 40 MG Symbicort Symbicort No 2{puffs BID Symbicort 80-4.5 80-4.5 } 80-4.5 MCG/ACT MCG/ACT MCG/ACT ProAir HFA ProAir HFA No ProAir HFA 108 (90 108 (90 108 (90 Base) Base) Base) MCG/ACT MCG/ACT MCG/ACT Symbicort Symbicort No 2{puffs BID Symbicort 80-4.5 80-4.5 } 80-4.5 MCG/ACT MCG/ACT MCG/ACT Ventolin Ventolin No 2{puffs QID Ventolin HFA 108 (90 HFA 108 (90 _as_nee HFA 108 Base) Base) ded} (90 Base) MCG/ACT MCG/ACT MCG/ACT Omeprazole Omeprazole No QD Omeprazole 40 MG 40 MG 40 MG Hyoscyamine Hyoscyamine No 1{table 6xD Hyoscyamin Sulfate SL Sulfate SL t_under e Sulfate 0.125 MG 0.125 MG _the_to SL 0.125 ngue_an MG d_allow _to_dis solve_a s_neede d} Symbicort Symbicort No 2{puffs BID Symbicort 80-4.5 80-4.5 } 80-4.5 MCG/ACT MCG/ACT MCG/ACT ProAir HFA ProAir HFA No ProAir HFA 108 (90 108 (90 108 (90 Base) Base) Base) MCG/ACT MCG/ACT MCG/ACT Omeprazole Omeprazole No QD Omeprazole 40 MG 40 MG 40 MG Omeprazole Omeprazole No QD Omeprazole 40 MG 40 MG 40 MG Hyoscyamine Hyoscyamine No 1{table 6xD Hyoscyamin Sulfate SL Sulfate SL t_under e Sulfate 0.125 MG 0.125 MG _the_to SL 0.125 ngue_an MG d_allow _to_dis solve_a s_neede d} Symbicort Symbicort No 2{puffs BID Symbicort 80-4.5 80-4.5 } 80-4.5 MCG/ACT MCG/ACT MCG/ACT Ventolin Ventolin No 2{puffs QID Ventolin HFA 108 (90 HFA 108 (90 _as_nee HFA 108 Base) Base) ded} (90 Base) MCG/ACT MCG/ACT MCG/ACT ProAir HFA ProAir HFA No ProAir HFA 108 (90 108 (90 108 (90 Base) Base) Base) MCG/ACT MCG/ACT MCG/ACT Omeprazole Omeprazole No QD Omeprazole 40 MG 40 MG 40 MG Hyoscyamine Hyoscyamine No 1{table 6xD Hyoscyamin Sulfate SL Sulfate SL t_under e Sulfate 0.125 MG 0.125 MG _the_to SL 0.125 ngue_an MG d_allow _to_dis solve_a s_neede d} Symbicort Symbicort No 2{puffs BID Symbicort 80-4.5 80-4.5 } 80-4.5 MCG/ACT MCG/ACT MCG/ACT Ventolin Ventolin No 2{puffs QID Ventolin HFA 108 (90 HFA 108 (90 _as_nee HFA 108 Base) Base) ded} (90 Base) MCG/ACT MCG/ACT MCG/ACT ProAir HFA ProAir HFA No ProAir HFA 108 (90 108 (90 108 (90 Base) Base) Base) MCG/ACT MCG/ACT MCG/ACT Hyoscyamine Hyoscyamine No 1{table 6xD Hyoscyamin Sulfate SL Sulfate SL t_under e Sulfate 0.125 MG 0.125 MG _the_to SL 0.125 ngue_an MG d_allow _to_dis solve_a s_neede d} Ventolin Ventolin No 2{puffs QID Ventolin HFA 108 (90 HFA 108 (90 _as_nee HFA 108 Base) Base) ded} (90 Base) MCG/ACT MCG/ACT MCG/ACT Omeprazole Omeprazole No QD Omeprazole 40 MG 40 MG 40 MG Symbicort Symbicort No 2{puffs BID Symbicort 80-4.5 80-4.5 } 80-4.5 MCG/ACT MCG/ACT MCG/ACT Omeprazole Omeprazole No QD Omeprazole 40 MG 40 MG 40 MG ProAir HFA ProAir HFA No ProAir HFA 108 (90 108 (90 108 (90 Base) Base) Base) MCG/ACT MCG/ACT MCG/ACT Symbicort Symbicort No 2{puffs BID Symbicort 80-4.5 80-4.5 } 80-4.5 MCG/ACT MCG/ACT MCG/ACT Hyoscyamine Hyoscyamine No 1{table 6xD Hyoscyamin Sulfate SL Sulfate SL t_under e Sulfate 0.125 MG 0.125 MG _the_to SL 0.125 ngue_an MG d_allow _to_dis solve_a s_neede d} Ventolin Ventolin No 2{puffs QID Ventolin HFA 108 (90 HFA 108 (90 _as_nee HFA 108 Base) Base) ded} (90 Base) MCG/ACT MCG/ACT MCG/ACT Omeprazole Omeprazole No QD Omeprazole 40 MG 40 MG 40 MG Symbicort Symbicort No 2{puffs BID Symbicort 80-4.5 80-4.5 } 80-4.5 MCG/ACT MCG/ACT MCG/ACT Omeprazole Omeprazole No QD Omeprazole 40 MG 40 MG 40 MG ProAir HFA ProAir HFA No ProAir HFA 108 (90 108 (90 108 (90 Base) Base) Base) MCG/ACT MCG/ACT MCG/ACT Symbicort Symbicort No 2{puffs BID Symbicort 80-4.5 80-4.5 } 80-4.5 MCG/ACT MCG/ACT MCG/ACT ProAir HFA ProAir HFA No ProAir HFA 108 (90 108 (90 108 (90 Base) Base) Base) MCG/ACT MCG/ACT MCG/ACT Omeprazole Omeprazole No QD Omeprazole 40 MG 40 MG 40 MG Symbicort Symbicort No 2{puffs BID Symbicort 80-4.5 80-4.5 } 80-4.5 MCG/ACT MCG/ACT MCG/ACT Immunizations Ordered Immunization Filled Immunization Date Status Commen ts Source Name Name [place] Tran 2019-03-20 Completed [facility] (Triamcinolone) (Triamcinolone) 09:25:00 [facility] Chelsea 2019-03-20 Completed [facility] (Triamcinolone) (Triamcinolone) 09:25:00 [facility] Chelsea Tran 2019-03-20 Completed [facility] (Triamcinolone) (Triamcinolone) 09:25:00 [facility] Chelsea Tran 2019-03-20 Completed [facility] (Triamcinolone) (Triamcinolone) 09:25: [facility] Chelsea Tran 2019-03-20 Completed [facility] (Triamcinolone) (Triamcinolone) 09:25: [facility] Chelsea Trna 2019-03-20 Completed [facility] (Triamcinolone) (Triamcinolone) 09:25:00 [facility] Vital Signs Vital Name Observation Time Observation Value Comments Source height 2021-05-17 16:30:00 65 [in_i] Common [facility] weight 2021-05-17 16:30:00 280 [lb_av] Common S pirit [facility] temperature 2021-05-17 16:30:00 97.4 [degF] Common S pirit [facility] bmi 2021-05-17 16:30:00 46.59 kg/m2 Common S [facility]irit [facility] blood pressure 2021-05-17 16:30:00 122 mm[Hg] Common Spirit - systolic [facility] blood pressure 2021-05-17 16:30:00 75 mm[Hg] Common Spirit - diastolic [facility] height 2021-02-19 10:00:00 65 [in_i] [facility] weight 2021-02-19 10:00:00 265 [lb_av] Common S pirit [facility] bmi 2021-02-19 10:00:00 44.09 kg/m2 Common S pirit [facility] height 2020-09-17 15:40:00 65 [in_i] Common S pirit [facility] weight 2020-09-17 15:40:00 265 [lb_av] Common S pirit [facility] temperature 2020-09-17 15:40:00 98 [degF] Common S pirit [facility] bmi 2020-09-17 15:40:00 44.09 kg/m2 Common S pirit [facility] blood pressure 2020-09-17 15:40:00 124 mm[Hg] Common Spirit - systolic [facility] blood pressure 2020-09-17 15:40:00 74 mm[Hg] Common Spirit - diastolic [facility] height 2020-06-12 10:50:00 65 [in_i] Common S pirit [facility] weight 2020-06-12 10:50:00 265.0 [lb_av] Common [facility] temperature 2020-06-12 10:50:00 97.2 [degF] Common S pirit [facility] bmi 2020-06-12 10:50:00 44.09 kg/m2 Common [facility] oximetry 2020-06-12 10:50:00 98 % Common [facility] respiratory rate 2020-06-12 10:50:00 18 /min Comm on [facility] blood pressure 2020-06-12 10:50:00 118 mm[Hg] Common [facility] - systolic [facility] blood pressure 2020-06-12 10:50:00 80 mm[Hg] Common [facility] - diastolic [facility] Procedures This patient has no known procedures. Encounters Start End Encounter Admission Attending Care Care Encounter Source Date/Time Date/Time Type Type Clinicians Facility Department ID 2021-04-14 Outpatient Vasquez, STLMLC STLMLC [id number] Common 14:08:00 Holger [facility] 2021-04-07 Outpatient Vasquez, STLMLC STLMLC [id number] Common 14:33:47 Holger [facility] 2021-04-07 Outpatient Vasquez, STLMLC STLMLC [id number] Common 14:23:18 Holger [facility] 2021-04-07 Outpatient Vasquez, STLMLC STLMLC [id number] Common 14:23:09 Holger 80801 [facility] 2021-04-07 Outpatient Vasquez, STLMLC STLMLC [id number] Common 12:17:25 Holger 73385 [facility] 2021-04-07 Outpatient Vasquez, STLMLC STLMLC [id number] Common 11:48:37 Holger 47752 [facility] 2021-04-07 Outpatient Vasquez, STLMLC STLMLC [id number] Common 11:24:50 Holger 49605 [facility] 2021-04-07 Outpatient Vasquez, STLMLC STLMLC [id number] Common 11:01:24 Holger 95326 [facility] 2021-04-07 Outpatient Vasquez, STLMLC STLMLC [id number] Common 10:59:30 Holger 28466 [facility] 2021-04-07 Outpatient Pedro, STLMLC STLMLC [id number] Common 10:58:52 Holger 22370 [facility] 2021-09-21 2021-09-21 Outpatient AMBREEN_FAR [facility] [address] 05:31:00 05:31:00 HANA 0712 da [facility] 2021-05-17 2021-05-17 OFFICE STLMLC STLMLC [id number] Co mmon 00:00:00 00:00:00 VISIT EST Spir it PT LEVEL 3 [facility] 2021-02-19 2021-02-19 OFFICE STLMLC STLMLC [id number] Co mmon 00:00:00 00:00:00 VISIT EST Spir it PT LEVEL 3 [facility] 2021-02-18 2021-02-18 (TEL) STLMLC STLMLC [id number] Co mmon 00:00:00 00:00:00 [facility] 2020-09-17 2020-09-17 OFFICE STLMLC STLMLC [id number] Co mmon 00:00:00 00:00:00 VISIT EST Spir it PT LEVEL 3 [facility] 2020-07-30 2020-07-30 (TEL) STLMLC STLMLC [id number] Co mmon 00:00:00 00:00:00 [facility] 2020-06-12 2020-06-12 (TEL) STLMLC STLMLC [id number] Co mmon 00:00:00 00:00:00 [facility] 2020-06-12 2020-06-12 OFFICE STLMLC STLMLC [id number] Co mmon 00:00:00 00:00:00 VISIT [facility] PT - [facility] LEVEL 4 [facility] 2020-06-02 2020-06-02 (TEL) STLMLC STLMLC [id number] Co mmon 00:00:00 00:00:00 [facility] 2020-05-28 2020-05-28 (TEL) STLMLC STLMLC [id number] Co mmon 00:00:00 00:00:00 [facility] 2020-03-20 2020-03-20 Outpatient STLMLC STLMLC [id number] Common 00:00:00 00:00:00 [facility] 2019-12-13 2019-12-13 Outpatient STLMLC STLMLC [id number] Common 00:00:00 00:00:00 [facility] 2019-12-12 2019-12-12 Outpatient STLMLC STLMLC [id number] Common 00:00:00 00:00:00 [facility] 2019-11-06 2019-11-06 [id number] Common 09:54:00 09:54:[address] [facility] 2019-11-04 2019-11-04 [facility] [id number] Common 13:40:00 13:40:[address] [facility] 2019-05-02 2019-05-02 [facility] [id number] Common 08:18:00 08:18:[address] [facility] 2019-04-03 2019-04-03 [facility] [id number] Common 09:30:00 09:30:[address] [facility] 2019-03-20 2019-03-20 [facility] [id number] Common 09:15:00 09:15:[address] [facility] 2019-03-19 2019-03-19 [facility] [id number] Common 16:57:00 16:57:[address] [facility] 2018-12-25 2018-12-25 [facility] [id number] Common 13:15:00 13:15:[address] [facility] 2018-09-24 2018-09-24 [facility] [id number] Common 14:00:00 14:00:[address] [facility] 2018-08-22 2018-08-22 [facility] [id number] Common 14:45:00 14:45:[address] [facility] 2018-05-08 2018-05-08 [facility] [id number] Common 13:15:00 13:15:[address] [facility] 2017-10-04 2017-10-04 [facility] [id number] Common 11:00:00 11:00:[address] [facility] 2017-06-01 2017-06-01 [facility] [id number] Common 10:30:00 10:30:[address] [facility] Results Test Description Test Time Test Comments Results Result Comments Source TSH, THIRD GENERATION 2021-12-10 06:43:12 Test Item Value Reference Range Interpretation Comme nts TSH, THIRD GENERATION (test 2.850 UIU/ML 0.400-4.100 UNLESS OTHERWISE INDICATED, code = 2821) ALL TESTING PER FORMED ATCLINICAL PATH [facility], [place] [address] COMMUNITY ADMINISTRATOR: Gretel DOWNS [id number] [facility] [place] [id number] COMPREHENSIVE METABOLIC [id number] 05:30:01 Test Item Value Reference Range Interpretation Comments GLUCOSE (test code = 89 MG/DL 70-99 2216) BUN (test code = 11 MG/DL -2207) CREATININE (test 1.05 MG/DL 0.80-1.40 code = 2214) eGFR (2020 CKD-EPI) 98 ML/MIN/1.73 >60 (test code = 93175) CALC BUN/CREAT (test 10 RATIO 09-07 code = 2235) SODIUM (test code = 147 MEQ/L 133-146 H 2230) POTASSIUM (test code 4.9 MEQ/L 3.5-5.4 = 222) CHLORIDE (test code 109 MEQ/L 95-107 H = 2215) CARBON DIOXIDE (test 25 MEQ/L 19-31 code = 2206) CALCIUM (test code = 9.7 MG/DL 8.5-10.5 2208) PROTEIN, TOTAL (test 7.0 G/DL 6.1-8.3 code = 2229) ALBUMIN (test code = 4.5 G/DL 3.5-5.2 2200) CALC GLOBULIN (test 2.5 G/DL 1.9-3.7 code = 2240) CALC A/G RATIO (test 1.8 RATIO 1.0-2.6 code = 2234) BILIRUBIN, TOTAL 0.6 MG/DL See_Comment [Automated message] (test code = 2206) The syste m which generated this result transmit maxime reference range : <=1.2. The refe rence range was not u sed to interpret th is result as normal/abnormal . ALKALINE PHOSPHATASE 56 U/L 40-115 (test code = 2203) AST (test code = 14 U/L 9-50 2217) ALT (test code = 18 U/L 5-50 2218) LIPID [id number] 05:30:01 Test Item Value Reference Range Interpretation Comments CHOLESTEROL (test 173 MG/DL <200 code = 2210) TRIGLYCERIDES (test 164 MG/DL <150 H code = 2232) HDL CHOLESTEROL (test 39 MG/DL >39 L code = 2220) CALC LDL CHOL (test 106 MG/DL <100 H NOTE: C ALCULATED LDL code = 2237) IS BASED ON TIARA-XAVIER METHOD WHICHINCLUDES ADJUSTABLE TRIGLYCERIDE:VL DL CHOLESTEROL RAT IO.THIS FACTOR VARIES B Y MEASURED TRIGLY CERIDE AND NON-HDLCHOL ESTEROL CONCENTRATIONS WITH INCREASED CALCU LATED LDL SEENIN HIGH ER TRIGLYCERIDE OR LOWER NON-HDL SPECIME NS. FOR MOREINFORMATION , SEE CLIENT ANNOUNCE MENT AT [email or web address] LDL/HDL 2.72 RATIO <3.55 (test code = 2238) HEMOGLOBIN [id number] 03:39:22 Test Item Value Reference Range Interpretation Comments HEMOGLOBIN A1c (test code = 29442) 5.3 % 4.2-5.6 CBC W/AUTO DIFF WITH [id number] 02:23:36 Test Item Value Reference Range Interpretation Comments WBC (test code = 9.4 K/UL 3.5-11.0 1001) RBC (test code = 5.19 M/UL 4.50-6.10 1002) HEMOGLOBIN (test code 15.3 G/DL 13.5-17.0 = 1003) HEMATOCRIT (test code 44.6 % 40.0-51.0 = 1004) MCV (test code = 85.9 fL 80.0-99.0 1005) MCH (test code = 29.5 PG 25.0-33.0 1006) MCHC (test code = 34.3 G/DL 31.0-36.0 1007) RDW (test code = 12.7 % 11.5-15.0 1038) NEUTROPHILS (test 54.2 % code = 1008) LYMPHOCYTES (test 38.9 % code = 1010) MONOCYTES (test code 5.3 % = 1011) EOSINOPHILS (test 0.9 % code = 1012) BASOPHILS (test code 0.5 % = 1013) IMMATURE GRANULOCYTES 0.2 % (test code = 1036) NUCLEATED RBCS (test 0.0 /100 WBC'S See_Comment [Aut omated code = 1065) message] The sy stem which generated this result transmitted reference range : 0.0. The refere nce range was not u sed to interpret th is result as normal/abnormal . PLATELET COUNT (test 303 K/UL 130-400 code = 1015) ABSOLUTE NEUTROPHILS 5.07 K/UL 1.50-7.50 (test code = 1066) ABSOLUTE LYMPHOCYTES 3.64 K/UL 1.00-4.00 (test code = 1067) ABSOLUTE MONOCYTES 0.50 K/UL 0.20-1.00 (test code = 1068) ABSOLUTE EOSINOPHILS 0.08 K/UL 0.00-0.50 (test code = 1040) ABSOLUTE BASOPHILS 0.05 K/UL 0.00-0.20 (test code = 1069) ABS IMMATURE 0.02 K/UL 0.00-0.10 GRANULOCYTES (test code = 1020) ABS NUCLEATED RBCS 0.00 K/UL 0.00-0.11 (test code = 13830)
--- NOTE | 2022-05-13 12:16 | ER ---
Nurse's Notes [facility] Name: Kenton Asencio Age: 31 yrs Sex: Male : 1990 Arrival Date: 05/13/2022 Time: 12:08 Bed Waiting Private MD: Holger Vasquez Diagnosis: Acute bronchitis, unspecified Presentation: 05/13 12:11 Chief complaint: Patient states: Sharp constant chest pain began yesterday. Coronavirus ld1 screen: At this time, the client does not indicate any symptoms associated with coronavirus-19. Ebola Screen: No symptoms or risks identified at this time. Initial Sepsis Screen: Does the patient meet any 2 criteria? No. Patient's initial sepsis screen is negative. Does the patient have a suspected source of infection? No. Patient's initial sepsis screen is negative. Risk Assessment: Do you want to hurt yourself or someone else? Patient reports no desire to harm self or others. Onset of symptoms was May 13, 2022. 12:11 Method Of Arrival: Ambulatory ld1 12:11 Acuity: MEREDITH 3 ld1 Triage Assessment: 12:13 General: Appears in no apparent distress. comfortable, Behavior is calm, cooperative, ld1 appropriate for age. Pain: Complains of pain in chest Pain does not radiate. Pain currently is 5 out of 10 on a pain scale. Quality of pain is described as throbbing, Pain began 1 day ago. Is continuous. EENT: No signs and/or symptoms were reported regarding the EENT system. Neuro: Level of Consciousness is awake, alert, obeys commands, Oriented to person, place, time, situation. Cardiovascular: Capillary refill < 3 seconds Patient's skin is warm and dry. Respiratory: Airway is patent Respiratory effort is even, unlabored. GI: Abdomen is round non-distended. : No signs and/or symptoms were reported regarding the genitourinary system. Derm: No signs and/or symptoms reported regarding the dermatologic system. Musculoskeletal: No signs and/or symptoms reported regarding the musculoskeletal system. Historical: - Allergies: 12:13 No Known Allergies; ld1 - PMHx: 12:13 Asthma; Hypercholesterolemia; ld1 - PSHx: 12:13 None; ld1 - Immunization history:: Adult Immunizations up to date, Client reports having NOT received the Covid vaccine. - Social history:: Smoking status: Patient denies any tobacco usage or history of. Patient/guardian denies using alcohol. Screenin:18 [facility] ED Fall Risk Assessment (Adult) History of falling in the last 3 months, ld1 including since admission No falls in past 3 months (0 pts). Abuse screen: Denies injuries from another. Abuse screen: Denies threats or abuse. Nutritional screening: No deficits noted. Tuberculosis screening: No symptoms or risk factors identified. Assessment: 12:18 Reassessment: See triage assessment. ERP in triage assessing patient. ld1 Vital Signs: 12:11 BP 132 / 93; Pulse 95; Resp 18; Pulse Ox 100% on R/A; Weight 127.01 kg; Height 5 ft. 5 ld1 in. (165.10 cm); Pain 5/10; 12:11 Temp 98.6(O); ld1 12:11 Body Mass Index 46.59 (127.01 kg, 165.10 cm) ld1 ED Course: 12:08 Patient arrived in ED. mr 12:08 Holger Vasquez DO is Private Physician. mr 12:09 [facility] Coombs [facility]-C [facility]. snw 12:09 Scotty Patterson DO is Attending Physician. snw 12:13 Triage completed. ld1 12:13 Arm band placed on right wrist. EKG completed in triage. Results shown to MD. ld1 12:16 Holger Vasquez DO is Referral Physician. snw 12:18 Patient has correct armband on for positive identification. Call light in reach. Pulse ld1 ox on. NIBP on. Door closed. Noise minimized. 12:18 No provider procedures requiring assistance completed. Patient did not have IV access ld1 during this emergency room visit. Patient maintains SpO2 saturation greater than 95% on room air. Administered Medications: 12:26 Drug: Ketorolac 30 mg Route: IM; Site: right deltoid; ld1 12:26 Not Given (Patient Refused): ZyrTEC - Cetirizine 10 mg PO once ld1 12: Drug: predniSONE 40 mg Route: PO; ld1 12:26 Drug: Pepcid (famotidine) 20 mg Route: PO; ld1 Medication: 12:18 VIS not applicable for this client. ld1 Outcome: 12:16 Discharge ordered by . snw 12:18 Discharged to home ambulatory. ld1 12:18 Condition: stable 12:18 Discharge instructions given to patient, Instructed on discharge instructions, follow up and referral plans. medication usage, Demonstrated understanding of instructions, follow-up care, medications, Prescriptions given X 5 12:29 Patient left the ED. ld1 Signatures: Paula Coombs, HOME HEALTH SPECIALIST-C HOME HEALTH SPECIALIST-Lesleyw Rachell Padilla mr Sakina Jacome, RN RN ld1
--- NOTE | 2022-05-13 12:17 | EDPHYS ---
Physician Documentation [facility] Name: Kenton Asencio Age: 31 yrs Sex: Male : 1990 Arrival Date: 05/13/2022 Time: 12:08 Bed Waiting Private MD: Pedro [facility] ED Physician Scotty Patterson HPI: 05/13 13:40 This 31 yrs old Male presents to ER via Ambulatory with complaints of Chest snw Pain, Shortness Of Breath. 13:40 The patient or guardian reports cough, described as moderate, hx of asthma, bronchitis. snw Onset: The symptoms/episode began/occurred acutely, last night. Associated signs and symptoms: The patient has no apparent associated signs or symptoms. Severity of symptoms: At their worst the symptoms were moderate in the emergency department the symptoms are unchanged. The patient has experienced similar episodes in the past, multiple times. The patient has not recently seen a physician. Historical: - Allergies: 12:13 No Known Allergies; ld1 - PMHx: 12:13 Asthma; Hypercholesterolemia; ld1 - PSHx: 12:13 None; ld1 - Immunization history:: Adult Immunizations up to date, Client reports having NOT received the Covid vaccine. - Social history:: Smoking status: Patient denies any tobacco usage or history of. Patient/guardian denies using alcohol. ROS: 13:37 Constitutional: Negative for fever, chills, and weight loss, Eyes: Negative for injury, snw pain, redness, and discharge, ENT: Negative for injury, pain, and discharge, Neck: Negative for injury, pain, and swelling, Abdomen/GI: Negative for abdominal pain, nausea, vomiting, diarrhea, and constipation, Back: Negative for injury and pain, : Negative for injury, bleeding, discharge, and swelling, MS/Extremity: Negative for injury and deformity, Skin: Negative for injury, rash, and discoloration, Neuro: Negative for headache, weakness, numbness, tingling, and seizure, Psych: Negative for depression, anxiety, suicide ideation, homicidal ideation, and hallucinations. 13:37 Cardiovascular: Positive for chest pain, with cough, of the left clavicle and mid-sternal area. 13:37 Respiratory: Positive for cough, feels like when I have had bronchitis. Exam: 13:36 Constitutional: This is a well developed, well nourished patient who is awake, alert, snw and in no acute distress. Head/Face: Normocephalic, atraumatic. Eyes: Pupils equal round and reactive to light, extra-ocular motions intact. Lids and lashes normal. Conjunctiva and sclera are non-icteric and not injected. Cornea within normal limits. Periorbital areas with no swelling, redness, or edema. ENT: Nares patent. No nasal discharge, no septal abnormalities noted. Tympanic membranes are normal and external auditory canals are clear. Oropharynx with no redness, swelling, or masses, exudates, or evidence of obstruction, uvula midline. Mucous membranes moist. Neck: Trachea midline, no thyromegaly or masses palpated, and no cervical lymphadenopathy. Supple, full range of motion without nuchal rigidity, or vertebral point tenderness. No Meningismus. Chest/axilla: Normal chest wall appearance and motion. Nontender with no deformity. No lesions are appreciated. Cardiovascular: Regular rate and rhythm with a normal S1 and S2. No gallops, murmurs, or rubs. Normal PMI, no JVD. No pulse deficits. Abdomen/GI: Soft, non-tender, with normal bowel sounds. No distension or tympany. No guarding or rebound. No evidence of tenderness throughout. 13:36 Back: No spinal tenderness. No costovertebral tenderness. Full range of motion. Skin: Warm, dry with normal turgor. Normal color with no rashes, no lesions, and no evidence of cellulitis. MS/ Extremity: Pulses equal, no cyanosis. Neurovascular intact. Full, normal range of motion. Neuro: Awake and alert, GCS 15, oriented to person, place, time, and situation. Cranial nerves II-XII grossly intact. Motor strength 5/5 in all extremities. Sensory grossly intact. Cerebellar exam normal. Normal gait. Psych: Awake, alert, with orientation to person, place and time. Behavior, mood, and affect are within normal limits. 13:36 Respiratory: the patient does not display signs of respiratory distress, Respirations: normal, Breath sounds: bronchial sounds, that are moderate, are heard in the left posterior upper lobe and right posterior upper lobe. Vital Signs: 12:11 BP 132 / 93; Pulse 95; Resp 18; Pulse Ox 100% on R/A; Weight 127.01 kg; Height 5 ft. 5 ld1 in. (165.10 cm); Pain 5/10; 12:11 Temp 98.6(O); ld1 12:11 Body Mass Index 46.59 (127.01 kg, 165.10 cm) ld1 MDM: 12:09 Patient medically screened. snw 13:38 Data reviewed: vital signs, nurses notes, EKG. I considered the following discharge snw prescriptions or medication management in the emergency department Medications were administered in the Emergency Department. See MAR. Counseling: I had a detailed discussion with the patient and/or guardian regarding: the historical points, exam findings, and any diagnostic results supporting the discharge/admit diagnosis, the presence of at least one elevated blood pressure reading (>120/80) during this emergency department visit, the need for outpatient follow up, to return to the emergency department if symptoms worsen or persist or if there are any questions or concerns that arise at home. Special discussion: Based on the patient's history, exam, and Dx evaluation, there is no indication for emergent intervention or inpatient Tx. It is understood by the patient/guardian that if the Sx's persist or worsen they need to return immediately for re-evaluation. Based on the history and exam findings, there is no indication for further emergent testing or inpatient evaluation. I discussed with the patient/guardian the need to see the primary care provider for further evaluation of the symptoms. EC:20 Rate is 102 beats/min. Rhythm is regular. QRS [place] is Normal. VA interval is normal. Q snw waves are Present in leads V1, V2. Clinical impression: NSR w/ Non-specific ST/T Changes and Sinus tachycardia. Administered Medications: 12:26 Drug: Ketorolac 30 mg Route: IM; Site: right deltoid; ld1 12:26 Not Given (Patient Refused): ZyrTEC - Cetirizine 10 mg PO once ld1 12:26 Drug: predniSONE 40 mg Route: PO; ld1 12:26 Drug: Pepcid (famotidine) 20 mg Route: PO; ld1 Disposition: 18:54 Co-signature as Attending Physician, Scotty Patterson DO I was immediately available on-site ms3 in the Emergency Department for consultation in the care of the patient. Disposition Summary: 05/13/22 12:16 Discharge Ordered Location: Home snw Condition: Stable snw Diagnosis - Acute bronchitis, unspecified snw Followup: snw - With: Emergency Department - When: As needed - Reason: Worsening of condition Followup: snw - With: Holger Vasquez DO - When: 2 - 3 days - Reason: Recheck today's complaints, Continuance of care, Re-evaluation by your physician Discharge Instructions: - Discharge Summary Sheet snw - Acute Bronchitis, Adult snw Forms: - Work release form snw - Medication Reconciliation Form snw - Thank You Letter snw - Antibiotic Education snw - Prescription Opioid Use snw Prescriptions: - albuterol sulfate 90 mcg/actuation Inhalation HFA aerosol inhaler - inhale 2 puff by INHALATION route every 6 hours; 1 vial; Refills: 0, Product snw Selection Permitted - Zyrtec 10 mg Oral Tablet - take 1 tablet by ORAL route once daily As needed; 20 tablet; Refills: 0, snw Product Selection Permitted - Tessalon Perles 100 mg Oral Capsule - take 1 capsule by ORAL route every 8 hours As needed; 15 capsule; Refills: 0, snw Product Selection Permitted - Prednisone 20 mg Oral Tablet - take 2 tablets by ORAL route once daily for 5 days; 10 tablet; Refills: 0, snw Product Selection Permitted - Pepcid 20 mg Oral Tablet - take 1 tablet by ORAL route once daily; 20 tablet; Refills: 0, Product snw Selection Permitted Signatures: Paula Coombs, DIRECTOR VOLUNTEER SERVICES-C DIRECTOR VOLUNTEER SERVICES-Csnw Scotty Patterson DO DO ms3 Sakina Jacome, RN RN ld1
[2022-05-13] MEDS ORDERED: predniSONE 20 MG TAB ONE (12:26)
[2022-05-13] MEDS ORDERED: FAMOTIDINE 20 MG TAB ONE (12:26)
[2022-05-13] MEDS ORDERED: KETOROLAC 30 MG/ML INJ ONE (12:26)
[2022-05-13 12:52] VITALS: BP 132/93; TEMP 98.6; O2SAT 100
--- NOTE | 2022-05-16 16:48 | EKG ---
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
== END 2022-05-13 12:29 | disposition home or self-care (01) ==
LOC: ER 12:04
DX: J20.9 Acute bronchitis, unspecified (principal)
CPT/HCPCS: 96372; 99284; J7512; 93005

== ENCOUNTER 2022-10-18 17:23 | Emergency (ER) | payer OTHER ==
--- OUTSIDE RECORDS SUMMARY | 2022-10-18 17:33 | XMS REPORT | Continuity of Care Document ---
:1990 Author Organization [facility] t Address [address] [place] [address] Care Team Providers Name Role Phone Holger Vasquez Attending Clinician Unavailable AMBREEN_FARSAMIRA Attending Clinician Unavailable AMBREEN_FARSAMIRA Admitting Clinician Unavailable Payers Payer Name Policy Type Policy Number Effective Date Expiration Date S [place] [id number] [facility]ARE [facility] [place] [id number] [facility] [place] [id number] [facility] [place] [id number] [facility] [place] [id number] [facility] [place] [id number] [facility] HEALTHCARE Spirit [facility] Problems Condition Condition Condition Status Onset Resolution Last Treating Co mments Source Name Details Category Date Date Treatment Clinician Date [id number] Intermitte Problem Active Co mmon nt asthma Spirit without [facility] severity [id number] Depression Problem Active Co mmon with Spirit anxiety - [facility] [id number] Seasonal Problem Active Comm on allergic Spirit rhinitis, - [facility] [id number] Erectile Problem Active Comm on dysfunctio Spirit n, - [facility] [id number] Adult BMI Problem Active Com mon 40.0-44.9 Spirit kg/sq m - [facility] [id number] Subclinica Problem Active Com mon l Spirit hypothyroi - [facility] dism [facility] [id number] Mild Problem Active Common intermitte Spirit [facility] [id number] Mood Problem Active Common disorder [facility] - [facility] [id number] Leukocytos Problem Active Co mmon is, Spirit unspecifie - [facility] d type [facility] [id number] GERD Problem Active Common without Spirit esophagiti - [facility] s [facility] [id number] Mixed Problem Active Common hyperlipid Spirit emia [facility] [id number] Fatty Problem Active Common liver Spirit disease, - [facility] nonalcohol [facility] [id number] Moderate Problem Active Comm on persistent Spirit asthma - [facility] without [facility] [id number] Moderate Problem Active Com mon 817[address] persistent Spirit asthma - [facility] with acute [facility] Allergies, Adverse Reactions, Alerts This patient has no known allergies or adverse reactions. Social History Social Habit Start Date Stop Date Quantity Comments Source History of Tobacco Use Co mmon [facility] Sex Assigned At Com mon [facility] Smoking Status Start Date Stop Date Source Never Smoker Common [facility] Medications Ordered Filled Start Stop Current Ordering [...] minutes Spirit 00:00: before - [facility] morning [facility] Kenalog Kenalog 2019-0 No 40mg Common (Triamcinol (Triamcinol 1-08 S pirit one) one) 00:00: - [facility] Hyoscyamine Hyoscyamine Yes Holger 1 tablet Common Sulfate SL Sulfate SL Vasquez under the Spirit tongue and - [facility] allow to [facility] needed [facility] Ventolin Ventolin Yes Holger 2 puffs as Common HFA HFA Vasquez needed Spirit - [facility] ProAir HFA ProAir HFA Yes Holger [...] Common Spirit (Triamcinolone) (Triamcinolone) 09:25:00 [facility] [place] 2019-03-20 Completed Common Spirit (Triamcinolone) (Triamcinolone) 09:25:00 [facility] [place] Tran 2019-03-20 Completed Common Spirit (Triamcinolone) (Triamcinolone) 09:25:00 [facility] [place] Tran 2019-03-20 Completed Common Spirit (Triamcinolone) (Triamcinolone) 09:25: [facility] [place] Tran 2019-03-20 Completed Common [facility] (Triamcinolone) (Triamcinolone) 09:25: [facility] [place] Tran 2019-03-20 Completed Common [facility] (Triamcinolone) (Triamcinolone) 09:25:00 [facility] Vital Signs Vital Name Observation Time Observation Value Comments Source height 2021-05-17 16:30:00 65 [in_i] Common S pirit - [facility] weight 2021-05-17 16:30:00 280 [lb_av] Common S pirit [facility] temperature 2021-05-17 16:30:00 97.4 [degF] Common S pirit [facility] bmi 2021-05-17 16:30:00 46.59 kg/m2 Common S pirit - [facility] blood pressure 2021-05-17 16:30:00 122 mm[Hg] Common Spirit - systolic [facility] blood pressure 2021-05-17 16:30:00 75 mm[Hg] Common Spirit - diastolic [facility] height 2021-02-19 10:00:00 65 [in_i] [facility] weight 2021-02-19 10:00:00 265 [lb_av] Common S pirit [facility] bmi 2021-02-19 10:00:00 44.09 kg/m2 Common S pirit [facility] height 2020-09-17 15:40:00 65 [in_i] Common S pirit [facility] weight 2020-09-17 15:40:00 265 [lb_av] Common S pirit [facility] temperature 2020-09-17 15:40:00 98 [degF] Common S pirit [facility] bmi 2020-09-17 15:40:00 44.09 kg/m2 Common S pirit [facility] blood pressure 2020-09-17 15:40:00 124 mm[Hg] Common Spirit - systolic [facility] blood pressure 2020-09-17 15:40:00 74 mm[Hg] Common Spirit - diastolic [facility] height 2020-06-12 10:50:00 65 [in_i] Common S pirit [facility] weight 2020-06-12 10:50:00 265.0 [lb_av] Common Spirit - [facility] temperature 2020-06-12 10:50:00 97.2 [degF] Common S pirit [facility] bmi 2020-06-12 10:50:00 44.09 kg/m2 Common [facility] oximetry 2020-06-12 10:50:00 98 % Common [facility] respiratory rate 2020-06-12 10:50:00 18 /min Comm on [facility] blood pressure 2020-06-12 10:50:00 118 mm[Hg] Common [facility] - systolic [facility] blood pressure 2020-06-12 10:50:00 80 mm[Hg] Common [facility] - diastolic [facility] Procedures This patient has no known procedures. Encounters Start End Encounter Admission Attending Care Care Encounter Source Date/Time Date/Time Type Type Clinicians Facility Department ID 2022-09-27 Outpatient Vasquez, STLMLC STLMLC [id number] Common 08:05:00 Holger 76650 [facility] 2021-04-14 Outpatient Vasquez, STLMLC STLMLC [id number] Common 14:08:00 Holger [facility] 2021-04-07 Outpatient Vasquez, STLMLC STLMLC [id number] Common 14:33:47 Holger [facility] 2021-04-07 Outpatient Vasquez, STLMLC STLMLC [id number] Common 14:23:18 Holger [facility] 2021-04-07 Outpatient Vasquez, STLMLC STLMLC [id number] Common 14:23:09 Holger 22253 [facility] 2021-04-07 Outpatient Vasquez, STLMLC STLMLC [id number] Common 12:17:25 Holger 59116 [facility] 2021-04-07 Outpatient Vasquez, STLMLC STLMLC [id number] Common 11:48:37 Holger 65357 [facility] 2021-04-07 Outpatient Vasquez, STLMLC STLMLC [id number] Common 11:24:50 Holger 97793 [facility] 2021-04-07 Outpatient Vasquez, STLMLC STLMLC [id number] Common 11:01:24 Holger 68735 [facility] 2021-04-07 Outpatient Vasquez, STLMLC STLMLC [id number] Common 10:59:30 Holger 51195 [facility] 2021-04-07 Outpatient Vasquez, STLMLC STLMLC [id number] Common 10:58:52 Holger 35175 [facility] 2021-09-21 2021-09-21 Outpatient AMBREEN_FAR MAHOP [facility] [address] [place] 05:31:00 05:31:00 HANA 0712 [facility] 2021-05-17 2021-05-17 OFFICE STLMLC STLMLC [id number] Co mmon 00:00:00 00:00:00 VISIT EST Spir it PT LEVEL 3 [facility] 2021-02-19 2021-02-19 OFFICE STLMLC STLMLC [id number] Co mmon 00:00:00 00:00:00 VISIT EST Spir it PT LEVEL 3 [facility] 2021-02-18 2021-02-18 (TEL) STLMLC STLMLC [id number] Co mmon 00:00:00 00:00:00 [facility] 2020-09-17 2020-09-17 OFFICE STLMLC STLMLC [id number] Co mmon 00:00:00 00:00:00 VISIT EST Spir it PT LEVEL 3 [facility] 2020-07-30 2020-07-30 (TEL) STLMLC STLMLC [id number] Co mmon 00:00:00 00:00:00 [facility] 2020-06-12 2020-06-12 (TEL) STLMLC STLMLC [id number] Co mmon 00:00:00 00:00:00 [facility] 2020-06-12 2020-06-12 OFFICE STLMLC STLMLC [id number] Co mmon 00:00:00 00:00:00 VISIT [facility] PT [facility] LEVEL 4 [facility] 2020-06-02 2020-06-02 (TEL) STLMLC STLMLC [id number] Co mmon 00:00:00 00:00:00 [facility] 2020-05-28 2020-05-28 (TEL) STLMLC STLMLC [id number] Co mmon 00:00:00 00:00:00 [facility] 2020-03-20 2020-03-20 Outpatient STLMLC STLMLC [id number] Common 00:00:00 00:00:00 [facility] 2019-12-13 2019-12-13 Outpatient STLMLC STLMLC [id number] Common 00:00:00 00:00:00 [facility] 2019-12-12 2019-12-12 Outpatient STLMLC STLMLC [id number] Common 00:00:00 00:00:00 [facility] 2019-11-06 2019-11-06 [id number] Common 09:54:00 09:54:[address] [facility] 2019-11-04 2019-11-04 [facility] [id number] Common 13:40:00 13:40:[address] [facility] 2019-05-02 2019-05-02 [facility] [id number] Common 08:18:00 08:18:[address] [facility] 2019-04-03 2019-04-03 [facility] [id number] Common 09:30:00 09:30:[address] [facility] 2019-03-20 2019-03-20 [facility] [id number] Common 09:15:00 09:15:[address] [facility] 2019-03-19 2019-03-19 [facility] [id number] Common 16:57:00 16:57:[address] [facility] 2018-12-25 2018-12-25 [facility] [id number] Common 13:15:00 13:15:[address] [facility] 2018-09-24 2018-09-24 [facility] [id number] Common 14:00:00 14:00:[address] [facility] 2018-08-22 2018-08-22 [facility] [id number] Common 14:45:00 14:45:[address] [facility] 2018-05-08 2018-05-08 [facility] [id number] Common 13:15:00 13:15:[address] [facility] 2017-10-04 2017-10-04 [facility] [id number] Common 11:00:00 11:00:[address] [facility] 2017-06-01 2017-06-01 [facility] [id number] Common 10:30:00 10:30:[address] [facility] Results Test Description Test Time Test Comments Results Result Comments Source TSH, THIRD GENERATION 2021-12-10 06:43:12 Test Item Value Reference Range Interpretation Comme nts TSH, THIRD GENERATION (test 2.850 UIU/ML 0.400-4.100 UNLESS OTHERWISE INDICATED, code = 2821) ALL TESTING PER FORMED ATCLINICAL PATH [facility] [place] [id number] GLEASON OPERATOR: Gretel DOWNS [id number] [place] [id number] COMPREHENSIVE METABOLIC [id number] 05:30:01 Test Item Value Reference Range Interpretation Comments GLUCOSE (test code = 89 MG/DL 70-99 2216) BUN (test code = 11 MG/DL -20 2207) CREATININE (test 1.05 MG/DL 0.80-1.40 code = 2214) eGFR (2020 CKD-EPI) 98 ML/MIN/1.73 >60 (test code = 69213) CALC BUN/CREAT (test 10 RATIO 6-28 code = 2235) SODIUM (test code = 147 MEQ/L 133-146 H 2230) POTASSIUM (test code 4.9 MEQ/L 3.5-5.4 = 222) CHLORIDE (test code 109 MEQ/L 95-107 H = 221) CARBON DIOXIDE (test 25 MEQ/L 19-31 code = 2206) CALCIUM (test code = 9.7 MG/DL 8.5-10.5 2208) PROTEIN, TOTAL (test 7.0 G/DL 6.1-8.3 code = 222) ALBUMIN (test code = 4.5 G/DL 3.5-5.2 2200) CALC GLOBULIN (test 2.5 G/DL 1.9-3.7 code = 224) CALC A/G RATIO (test 1.8 RATIO 1.0-2.6 code = 223) BILIRUBIN, TOTAL 0.6 MG/DL See_Comment [Automated message] (test code = 220) The syste m which generated this result transmit maxime reference range : <=1.2. The refe rence range was not u sed to interpret th is result as normal/abnormal . ALKALINE PHOSPHATASE 56 U/L 40-115 (test code = 220) AST (test code = 14 U/L 9-50 2217) ALT (test code = 18 U/L 5-50 2218) LIPID [id number] 05:30:01 Test Item Value Reference Range Interpretation [...] MOREINFORMATION , SEE CLIENT ANNOUNCE MENT AT [email or web address] LDL/HDL 2.72 RATIO <3.55 (test code = 2238) HEMOGLOBIN [id number] 03:39:22 Test Item Value Reference Range Interpretation Comments HEMOGLOBIN A1c (test code = 55085) 5.3 % 4.2-5.6 CBC W/AUTO DIFF WITH [id number] 02:23:36 Test Item Value Reference Range Interpretation [...] RBCS 0.00 K/UL 0.00-0.11 (test code = 01613)
[2022-10-18 18:55] LABS: Absolute Lymphocytes (CBC) 3.5 K/uL (0.7-4.9); Hematocrit 45.7 % (39.6-49.0); Lymphocytes % 29.7 % (15.3-44.8); MCV 87.5 fL (80-100); MPV 7.7 fL (7.6-11.3); Platelets 302 thou/uL (152-406); RBC Red Blood Cell Count 5.21 M/uL (4.33-5.43)
[2022-10-18 19:07] LABS: SARS-CoV-2 Antigen Rapid Res Negative (Negative)
[2022-10-18 19:18] LABS: ALT/SGPT 31 U/L (16-61); AST/SGOT 19 U/L (15-37); Alkaline Phosphatase 53 U/L (45-117); BUN Blood Urea Nitrogen 12 mg/dL (7-18); Bicarbonate 27 mEq/L (21-32); Bilirubin Total 0.3 mg/dL (0.2-1.0); Glomerular Filtration Rate 106 ml/min (=/>90); Glucose Level 92 mg/dL (74-106); Magnesium 2.2 mg/dL (1.6-2.4); NT PRO-BNP 44 pg/mL (<125); Potassium 4.1 mEq/L (3.5-5.1); Protein, Total 8.2 g/dL (6.4-8.2); Sodium Level 138 mEq/L (136-145)
[2022-10-18] MEDS ORDERED: KETOROLAC 30 MG/ML INJ ONE (19:20)
[2022-10-18 19:42] LABS: Bilirubin Direct < 0.1 mg/dL (0-0.2); Bilirubin Indirect, Calculated ND mg/dL (0.2-0.8); Troponin High Sensitivity < 3.0 pg/mL (<58.9)
--- NOTE | 2022-10-18 20:16 | RAD REPORT ---
EXAM DESCRIPTION: Lisat Single View10/18/2022 6:54 pm CLINICAL HISTORY: CHEST PAIN COMPARISON: Chest Single View dated 02/19/2021; Chest Single View dated 04/13/2020; Chest Single View dated 01/06/2016; Chest Pa And Lat (2 Views) dated 01/05/2016 TECHNIQUE: Portable AP view of the chest. FINDINGS: The lungs are clear. No pneumothorax or effusion. The cardiomediastinal contours are unrem arkable. IMPRESSION: No acute cardiopulmonary process.
[2022-10-18] MEDS ORDERED: NA CHLORIDE 0.9% 1,000 ML ONE (20:40)
--- NOTE | 2022-10-18 20:55 | ER ---
Nurse's Notes [facility] [place] Name: Kenton Asencio Age: 32 yrs Sex: Male : 1990 Arrival Date: 10/18/2022 Time: 17:23 Bed 16 Private MD: Diagnosis: Chest pain, unspecified Presentation: 10/18 17:29 Chief complaint: Patient states: Chest pain for 3 days along with sob and lightheaded nj1 with exertion. Coronavirus screen: Vaccine status: Patient reports being unvaccinated. Ebola Screen: Patient denies travel to an Ebola-affected area in the 21 days before illness onset. Initial Sepsis Screen: Does the patient meet any 2 criteria? No. Patient's initial sepsis screen is negative. Does the patient have a suspected source of infection? No. Patient's initial sepsis screen is negative. Risk Assessment: Do you want to hurt yourself or someone else? Patient reports no desire to harm self or others. Onset of symptoms was October 15, 2022. 17:29 Method Of Arrival: Ambulatory [facility] 17:29 Acuity: MEREDITH 3 nj1 Historical: - Allergies: 17:32 No Known Allergies; nj1 - PMHx: 17:32 Asthma; Hypercholesterolemia; nj1 - PSHx: 17:32 None; nj1 - Immunization history:: Client reports having NOT received the Covid vaccine. - Social history:: Smoking status: Patient denies any tobacco usage or history of. Screenin:45 [facility] ED Fall Risk Assessment (Adult) History of falling in the last 3 months, kc6 including since admission No falls in past 3 months (0 pts) Confusion or Disorientation No (0 pts) Intoxicated or Sedated No (0 pts) Impaired Gait No (0 pts) Mobility Assist Device Used No (0 pt) Altered Elimination No (0 pt) Score/Fall Risk Level 0 - 2 = Low Risk. Abuse screen: Denies threats or abuse. Denies injuries from another. Nutritional screening: No deficits noted. Tuberculosis screening: No symptoms or risk factors identified. Assessment: 18:45 General: Appears in no apparent distress. comfortable, Behavior is calm, cooperative, kc6 appropriate for age. Cardiovascular: Capillary refill < 3 seconds. Respiratory: Airway is patent Trachea midline Respiratory effort is even, unlabored, Respiratory pattern is regular, symmetrical. 19:15 General: Appears comfortable, Behavior is calm, cooperative. Pain: Complains of pain in ha1 chest Pain does not radiate. Pain currently is 4 out of 10 on a pain scale. Quality of pain is described as pressure, Pain began suddenly. Neuro: Level of Consciousness is awake, alert, obeys commands, Oriented to person, place, time, situation. Cardiovascular: Patient's skin is warm and dry. Respiratory: Airway is patent Respiratory effort is even, unlabored, Respiratory pattern is regular, symmetrical. GI: Abdomen is round non-distended. 20:15 Reassessment: Patient and/or family updated on plan of care and expected duration. Pain ha1 level reassessed. Patient is alert, oriented x 3, equal unlabored respirations, skin warm/dry/pink. Patient states feeling better. Patient states symptoms have improved. 21:06 Reassessment: Patient and/or family updated on plan of care and expected duration. Pain ha1 level reassessed. Patient is alert, oriented x 3, equal unlabored respirations, skin warm/dry/pink. Vital Signs: 17:29 BP 133 / 82; Pulse 86; Resp 18; Temp 99(TE); Pulse Ox 100% ; Weight 127.01 kg; Height 5 nj1 ft. 5 in. ; Pain 5/10; 19:15 BP 108 / 56; Pulse 80; Resp 16 S; Pulse Ox 100% on R/A; ha1 20:15 BP 108 / 68; Pulse 75; Resp 16; Pulse Ox 100% ; ha1 21:16 BP 109 / 67; Pulse 72; Resp 18 S; Pulse Ox 100% on R/A; ha1 17:29 Body Mass Index 46.59 (127.01 kg, 165.1 cm) sc1 17:29 Pain Scale: Adult [facility] ED Course: 17:28 Patient arrived in ED. kj1 17:32 Triage completed. nj1 17:33 Arm band placed on right wrist. nj1 17:41 Phil Espinal PA is PHCP. cp 17:41 Stephan Patterson MD is Attending Physician. cp 18:45 Patient has correct armband on for positive identification. Bed in low position. Call kc6 light in reach. Side rails up X 1. Adult w/ patient. Client placed on continuous cardiac and pulse oximetry monitoring. NIBP monitoring applied. clinical research monitor on. 18:45 Patient maintains SpO2 saturation greater than 95% on room air. kc6 18:56 XRAY Chest (1 view) In Process Unspecified. EDMS 19:00 Report given to Dara Carrington RN. kc6 19:01 EKG done, by ED staff. 8 19:06 Dara Carrington, RN is Primary Nurse. ha1 21:08 No provider procedures requiring assistance completed. IV discontinued, intact, ha1 bleeding controlled, No redness/swelling at site. Pressure dressing applied. 21:16 Provided Education on: follow ups. ha1 Administered Medications: 19:15 Drug: Ketorolac IVP 15 mg Route: IVP; Site: right antecubital; ha1 20:00 Drug: NS 0.9% IV 1000 ml Route: IV; Rate: 1 bolus; Site: right antecubital; ha1 Medication: 19:19 VIS not applicable for this client. ha1 Outcome: 20:55 Discharge ordered by MD. cp 21:15 Discharged to home ambulatory. ha1 21:15 Condition: stable 21:15 Discharge instructions given to patient, Instructed on discharge instructions, follow up and referral plans. medication usage, Demonstrated understanding of instructions, follow-up care, medications, Prescriptions given X 1. 21:17 Patient left the ED. ha1 Signatures: Dispatcher [employer] EDMS Phil Espinal PA PA cp Jackson, Kandis kj1 Dara Carrington, RN RN ha1 Ashley Gao RN RN kc6 Maia Dunn RN RN sc1 Ruth Scott [facility]
--- NOTE | 2022-10-18 20:55 | EDPHYS ---
Physician Documentation [facility] Name: Kenton Asencio Age: 32 yrs Sex: Male : 1990 Arrival Date: 10/18/2022 Time: 17:23 Bed 16 Private MD: ED Physician Stephan Patterson HPI: 10/18 17:55 This 32 yrs old Male presents to ER via Ambulatory with complaints of Chest cp Pain. 17:55 The patient or guardian reports chest pain that is located primarily in the anterior cp chest wall, mid chest. The pain radiates to Associated signs and symptoms: Pertinent positives: shortness of breath, Pertinent negatives: abdominal pain, lower extremity pain, lower extremity swelling, syncope, vomiting. The chest pain is described as sharp. Duration: The patient or guardian reports a single episode, that is still ongoing, and unchanged. Modifying factors: the symptoms are aggravated by activity, deep breath. Historical: - Allergies: 17:32 No Known Allergies; nj1 - PMHx: 17:32 Asthma; Hypercholesterolemia; nj1 - PSHx: 17:32 None; nj1 - Immunization history:: Client reports having NOT received the Covid vaccine. - Social history:: Smoking status: Patient denies any tobacco usage or history of. ROS: 18:00 Constitutional: Negative for body aches, chills, fever, poor PO intake. cp 18:00 Eyes: Negative for injury, pain, redness, and discharge. cp 18:00 ENT: Negative for drainage from ear(s), ear pain, sore throat, difficulty swallowing, difficulty handling secretions. 18:00 Cardiovascular: Positive for chest pain, Negative for edema, palpitations. 18:00 Respiratory: Positive for cough, with no reported sputum, shortness of breath, Negative for wheezing. 18:00 Abdomen/GI: Negative for abdominal pain, vomiting, diarrhea, constipation. 18:00 Back: Positive for radiated pain. 18:00 Neuro: Negative for altered mental status, headache, numbness, syncope, weakness. 18:00 All other systems are negative. Exam: 18:05 Constitutional: The patient appears in no acute distress, alert, awake, cp non-diaphoretic, non-toxic, well developed, well nourished, obese. 18:05 Head/Face: Normocephalic, atraumatic. cp 18:05 Eyes: Periorbital structures: appear normal, Conjunctiva: normal, no exudate, no injection, Sclera: no appreciated abnormality, Lids and lashes: appear normal, bilaterally. 18:05 ENT: External ear(s): are unremarkable, Nose: is normal, Mouth: Lips: moist, Oral mucosa: pink and intact, moist, Posterior pharynx: is normal, airway is patent, no erythema, no exudate. 18:05 Neck: ROM/movement: is normal, is supple, without pain, no range of motions limitations. 18:05 Chest/axilla: Inspection: normal, Palpation: crepitus, is not appreciated, tenderness, that is mild, of the anterior aspect of left upper chest and mid-sternal area, that partially reproduces the patient's complaints. 18:05 Cardiovascular: Rate: normal, Rhythm: regular, Edema: is not appreciated, JVD: is not appreciated. 18:05 Respiratory: the patient does not display signs of respiratory distress, Respirations: normal, no use of accessory muscles, no retractions, labored breathing, is not present, Breath sounds: are clear throughout, no decreased breath sounds, no stridor, no wheezing. 18:05 Abdomen/GI: Inspection: abdomen appears normal, Palpation: abdomen is soft and non-tender, in all quadrants. 18:05 Back: pain, that is mild, of the left scapular area, right scapular area, left subscapular area and right subscapular area, ROM is normal. 18:05 Skin: no rash present. 18:05 Neuro: Orientation: to person, place \T\ time. Mentation: is normal, Cerebellar function: is grossly normal, Motor: moves all fours, strength is normal, Sensation: is normal. 19:00 ECG was reviewed by the Attending Physician. cp Vital Signs: 17:29 BP 133 / 82; Pulse 86; Resp 18; Temp 99(TE); Pulse Ox 100% ; Weight 127.01 kg; Height 5 nj1 ft. 5 in. ; Pain 5/10; 19:15 BP 108 / 56; Pulse 80; Resp 16 S; Pulse Ox 100% on R/A; ha1 20:15 BP 108 / 68; Pulse 75; Resp 16; Pulse Ox 100% ; ha1 21:16 BP 109 / 67; Pulse 72; Resp 18 S; Pulse Ox 100% on R/A; ha1 17:29 Body Mass Index 46.59 (127.01 kg, 165.1 cm) nj1 17:29 Pain Scale: Adult nj1 MDM: 17:41 Patient medically screened. 20:55 Data reviewed: vital signs, nurses notes, lab test result(s), EKG, radiologic studies, cp plain films. 20:55 I considered the following discharge prescriptions or medication management in the emergency department Medications were administered in the Emergency Department. See MAR. Counseling: I had a detailed discussion with the patient and/or guardian regarding: the historical points, exam findings, and any diagnostic results supporting the discharge/admit diagnosis, lab results, radiology results, the need for outpatient follow up, a family practitioner, to return to the emergency department if symptoms worsen or persist or if there are any questions or concerns that arise at home. Special discussion: Based on the patient's history, exam, and Dx evaluation, there is no indication for emergent intervention or inpatient Tx. It is understood by the patient/guardian that if the Sx's persist or worsen they need to return immediately for re-evaluation. 10/18 17:47 Order name: Basic Metabolic Panel; Complete Time: 19:52 10/18 17:47 Order name: CBC with Diff; Complete Time: 19:52 10/18 20:50 Interpretation: Normal except: WBC 11.80. 10/18 17:47 Order name: D-Dimer; Complete Time: 19:52 10/18 20:50 Interpretation: Reviewed. 08 17:47 Order name: LFT's; Complete Time: 19:52 10/18 17:47 Order name: Magnesium; Complete Time: 19:52 10/18 17:47 Order name: NT PRO-BNP; Complete Time: 19:52 10/18 17:47 Order name: Troponin HS; Complete Time: 19:52 10/18 18:53 Order name: SARS-COV-2 Antigen Rapid; Complete Time: 19:52 [facility] 10/18 18:53 Order name: Influenza Screen (A ; Complete Time: 19:52 EDMS 10/18 17:47 Order name: XRAY Chest (1 view); Complete Time: 20:50 10/18 20:50 Interpretation: Report review. 10/18 17:47 Order name: EKG; Complete Time: 17:48 cp 10/18 17:47 Order name: Cardiac monitoring; Complete Time: 19:00 cp 10/18 17:47 Order name: EKG - Nurse/Tech; Complete Time: 18:56 cp 10/18 17:47 Order name: IV Saline Lock; Complete Time: 19:01 cp 10/18 17:47 Order name: Labs collected and sent; Complete Time: 19:01 cp 10/18 17:47 Order name: O2 Per Protocol; Complete Time: 18:57 cp 10/18 17:47 Order name: O2 Sat Monitoring; Complete Time: 18:57 cp EC:00 Rate is 84 beats/min. Rhythm is regular. ID interval is normal. QRS interval is normal. cp QT interval is normal. T waves are Inverted in lead aVR. Interpreted by me. Reviewed by me. Administered Medications: 19:15 Drug: Ketorolac IVP 15 mg Route: IVP; Site: right antecubital; [facility] 20:00 Drug: NS 0.9% IV 1000 ml Route: IV; Rate: 1 bolus; Site: right antecubital; [facility] Disposition Summary: 10/18/22 20:55 Discharge Ordered Location: Home cp Problem: new cp Symptoms: have improved cp Condition: Stable cp Diagnosis - Chest pain, unspecified cp Followup: cp - With: Private Physician - When: 2 - 3 days - Reason: Recheck today's complaints Discharge Instructions: - Discharge Summary Sheet cp - Nonspecific Chest Pain, Adult cp Forms: - Medication Reconciliation Form cp - Thank You Letter cp - Antibiotic Education cp - Prescription Opioid Use cp - Patient Portal Instructions cp Prescriptions: - Diclofenac Sodium 75 mg Oral Tablet Sustained Release - take 1 tablet by ORAL route 2 times per day; 30 tablet; Refills: 0, Product cp Selection Permitted Signatures: Dispatcher [employer] [facility] Phil Espinal PA PA cp Dara Carrington RN RN 1 Maia Dunn RN RN nj1 Corrections: (The following items were deleted from the chart) 18:53 17:48 COVID-19/FLU A+[id number] ordered. [facility] EDMS 10/19 19:21 10/18 17:55 Modifying factors: the symptoms are aggravated by deep breath, cp cp
[2022-10-18 21:59] VITALS: TEMP 99; O2SAT 100
[2022-10-18 22:04] VITALS: BP 109/67
--- NOTE | 2022-10-19 18:08 | EKG ---
Test Date: 2022-10-18 Test Time: 18:53:08 Box Car Checker: RYAN MEASUREMENT RESULTS: Intervals: Rate: 84 NH: 144 QRSD: 88 QT: 366 QTc: 432 [place]: P: 45 NH: 144 QRS: 41 T: 26 INTERPRETIVE STATEMENTS: Normal sinus rhythm Normal ECG Compared to ECG 05/13/2022 12:18:07 Sinus tachycardia no longer present Left ventricular hypertrophy no longer present Myocardial infarct finding no longer present Electronically Signed On 10-19-22 18:07:05 CDT by Adam Pugh
== END 2022-10-18 21:17 | disposition home or self-care (01) ==
LOC: ER 17:23
DX: R07.89 Other chest pain (principal); E78.00 Pure hypercholesterolemia, unspecified; Z20.822 Contact with and (suspected) exposure to COVID-19
CPT/HCPCS: 93005; 85025; 80048; 36415; 83735; 85379; 80076; 84484; 83880; 87804 ×2; 71045; 96374; 99285; 87811; J7030

== ENCOUNTER 2023-12-06 13:56 | Emergency (ER) | payer OTHER ==
--- OUTSIDE RECORDS SUMMARY | 2023-12-06 14:00 | XMS REPORT | Continuity of Care Document ---
Author Name Unknown Address [address] [facility] [address] [place] [address] [facility] thconnect Address [address] [facility] [address] [place] [address] Care Team Providers Care Transit Department Clerk Name Role Phone Holger Vasquez Attending Clinician Unavailable AMBREEN_AJIT Attending Clinician Unavailable AMBREEN_PORFIRIOA Admitting Clinician Unavailable Payers Payer Name Policy Type Policy Number Effective Date Expirati on Date Source [facility] PLUS C1 [id number] [facility] PLUS C1 [id number] [facility] PLUS C1 [id number] [facility] PLUS C1 [id number] [facility] PLUS C1 [id number] [facility] PLUS C1 [id number] [facility] Problems Condition Name Condition Details Condition Category Status Onset Date Resolution Date Last Treatment Date Treating Clinician Comments Source [id number] Intermitte nt asthma without complicati on, unspecifie d asthma severity Problem Active [facility] [id number] Depression with anxiety Problem Active [facility] [id number] Seasonal allergic rhinitis, unspecifie d trigger Problem Active [facility] [id number] Erectile dysfunctio n, unspecifie d erectile dysfunctio n type Problem Active [facility] [id number] Adult BMI 40.0-44.9 kg/sq m Problem Active [facility] [id number] Subclinica l hypothyroi dism Problem Active [facility] [id number] Mild intermitte nt asthma without complicati on Problem Active [facility] [id number] Mood disorder Problem Active [facility] 190007620 Leukocytos is, unspecifie d type Problem Active [facility] [id number] GERD without esophagiti s Problem Active [facility] 215554614 Mixed hyperlipid emia Problem Active [facility] 338775390 Fatty liver disease, nonalcohol ic Problem Active [facility] [id number] Moderate persistent asthma without complicati on Problem Active [facility] [id number] 06013 Moderate persistent asthma with acute exacerbati on Problem Active [facility] Social History Social Habit Start Date Stop Date Quantity Comments Source History of Tobacco Use [facility] Sex Assigned At [facility] Smoking Status Start Date Stop Date Source Never Smoker [facility] Medications Ordered Medication Name Filled Medication Name Start Date Stop Date Current Medication? Ordering Clinician Indication Dosage Frequency Signature (SIG) Comments Components Source Amoxicillin -Pot Clavulanate 875-125 MG Amoxicillin -Pot Clavulanate 875-125 MG 8-23 00:00: 00 No 1{table t} BID Amoxicilli n-Pot Clavulanat e 875-125 MG Kenalog (Triamcinol one) Kenalog (Triamcinol one) 0 1-08 00:00: 00 No 40mg [facility] Omeprazole 40 MG Omeprazole 40 MG No QD Omeprazole 40 MG ProAir HFA 108 (90 Base) MCG/ACT ProAir HFA 108 (90 Base) MCG/ACT No 1{table t_under _the_to ngue_an d_allow _to_dis solve_a s_neede d} BID ProAir HFA 108 (90 Base) MCG/ACT Symbicort 80-4.5 MCG/ACT Symbicort 80-4.5 MCG/ACT No 2{puffs } BID Symbicort 80-4.5 MCG/ACT Benzonatate 200 MG Benzonatate 200 MG No 1{capsu le_as_n eeded} Benzonatat e 200 MG Immunizations Ordered Immunization Name Filled Immunization Name Date Status Comments Source Kenalog (Triamcinolone) Kenalog (Triamcinolone) 2019-03-20 09:25:00 Completed [facility] Kenalog (Triamcinolone) Kenalog (Triamcinolone) 2019-03-20 09:25:00 Completed [facility] Kenalog (Triamcinolone) Kenalog (Triamcinolone) 2019-03-20 09:25:[address] [facility] Kenalog (Triamcinolone) Kenalog (Triamcinolone) 2019-03-20 09:25:00 Completed [facility] Kenalog (Triamcinolone) Kenalog (Triamcinolone) 2019-03-20 09:25:00 Completed [facility] Kenalog (Triamcinolone) Kenalog (Triamcinolone) 2019-03-20 09:25:00 Completed [facility] Boostrix (Tdap) Boostrix (Tdap) Unknown Completed [facility] Boostrix (Tdap) Boostrix (Tdap) Unknown Completed [facility] Boostrix (Tdap) Boostrix (Tdap) Unknown Completed [facility] Boostrix (Tdap) Boostrix (Tdap) Unknown Completed [facility] Boostrix (Tdap) Boostrix (Tdap) Unknown Completed [facility] Boostrix (Tdap) Boostrix (Tdap) Unknown Completed [facility] Boostrix (Tdap) Boostrix (Tdap) Unknown Completed [facility] Boostrix (Tdap) Boostrix (Tdap) Unknown Completed [facility] Vital Signs Vital Name Observation Time Observation Value Comments Charles gongora height 2023-11-03 08:00:00 65 [in_i] Commo n [facility] weight 2023-11-03 08:00:00 274.6 [lb_av] Co mmon [facility] temperature 2023-11-03 08:00:00 98.1 [degF] Com mon [facility] bmi 2023-11-03 08:00:00 45.69 kg/m2 Comm on [facility] oximetry 2023-11-03 08:00:00 99 % Commo n [facility] respiratory rate 2023-11-03 08:00:00 18 /min Common [facility] blood pressure systolic 2023-11-03 08:00:00 127 mm[Hg] [facility] blood pressure diastolic 2023-11-03 08:00:00 80 mm[Hg] Common [facility] height 2023-10-04 16:10:00 65 [in_i] Commo n [facility] weight 2023-10-04 16:10:00 276 [lb_av] Comm on [facility] temperature 2023-10-04 16:10:00 98 [degF] Comm on [facility] bmi 2023-10-04 16:10:00 45.92 kg/m2 Comm on [facility] oximetry 2023-10-04 16:10:00 98 % Commo n [facility] blood pressure systolic 2023-10-04 16:10:00 124 mm[Hg] [facility] blood pressure diastolic 2023-10-04 16:10:00 74 mm[Hg] Common [facility] height 2022-11-30 16:00:00 65 [in_i] Commo n [facility] weight 2022-11-30 16:00:00 275 [lb_av] Comm on [facility] bmi 2022-11-30 16:00:00 45.76 kg/m2 Comm on [facility] height 2022-09-27 14:40:00 65 [in_i] Commo n [facility] weight 2022-09-27 14:40:00 253 [lb_av] Comm on [facility] bmi 2022-09-27 14:40:00 42.1 kg/m2 Commo n [facility] height 2022-06-02 16:00:00 65 [in_i] Commo n [facility] weight 2022-06-02 16:00:00 253 [lb_av] Comm on [facility] temperature 2022-06-02 16:00:00 97.6 [degF] Com mon [facility] bmi 2022-06-02 16:00:00 42.1 kg/m2 Commo n [facility] oximetry 2022-06-02 16:00:00 95 % Commo n [facility] respiratory rate 2022-06-02 16:00:00 16 /min Common [facility] blood pressure systolic 2022-06-02 16:00:00 116 mm[Hg] Common [facility] blood pressure diastolic 2022-06-02 16:00:00 73 mm[Hg] [facility] height 2021-05-17 16:30:00 65 [in_i] Commo n [facility] weight 2021-05-17 16:30:00 280 [lb_av] Comm on [facility] temperature 2021-05-17 16:30:00 97.4 [degF] Com mon [facility] bmi 2021-05-17 16:30:00 46.59 kg/m2 Comm on [facility] blood pressure systolic 2021-05-17 16:30:00 122 mm[Hg] Common [facility] blood pressure diastolic 2021-05-17 16:30:00 75 mm[Hg] [facility] height 2021-02-19 10:00:00 65 [in_i] Commo n [facility] weight 2021-02-19 10:00:00 265 [lb_av] Comm on [facility] bmi 2021-02-19 10:00:00 44.09 kg/m2 Comm on [facility] height 2020-09-17 15:40:00 65 [in_i] Commo n [facility] weight 2020-09-17 15:40:00 265 [lb_av] Comm on [facility] temperature 2020-09-17 15:40:00 98 [degF] Comm on [facility] bmi 2020-09-17 15:40:00 44.09 kg/m2 Comm on [facility] blood pressure systolic 2020-09-17 15:40:00 124 mm[Hg] [facility] blood pressure diastolic 2020-09-17 15:40:00 74 mm[Hg] Common [facility] height 2020-06-12 10:50:00 65 [in_i] Commo n [facility] weight 2020-06-12 10:50:00 265.0 [lb_av] Co mmon [facility] temperature 2020-06-12 10:50:00 97.2 [degF] Com mon [facility] bmi 2020-06-12 10:50:00 44.09 kg/m2 Comm on [facility] oximetry 2020-06-12 10:50:00 98 % Commo n [facility] respiratory rate 2020-06-12 10:50:00 18 /min Common [facility] blood pressure systolic 2020-06-12 10:50:00 118 mm[Hg] Common [facility] blood pressure diastolic 2020-06-12 10:50:00 80 mm[Hg] [facility] Encounters Start Date/Time End Date/Time Encounter Type Admission Type Attending [facility] Facility Care Department Encounter ID Source 2023-11-02 09:32:00 Outpatient Vasquez, Holger STLC STLMLC [id number] [facility] 2023-10-02 13:47:00 Outpatient Vasquez, Holger [facility] STL[facility] [id number] [facility] 2022-11-29 13:15:00 Outpatient Vasquez, Holger [facility] ST[facility] [id number] [facility] 2022-09-27 08:05:00 Outpatient Vasquez, Holger [facility] STL[facility] [id number] [facility] 2021-04-14 14:08:00 Outpatient Vasquez, Holger [facility] ST[facility] [id number] [facility] 2021-04-07 14:33:47 Outpatient Vasquez, Holger [facility] ST[facility] [id number] [facility] 2021-04-07 14:23:18 Outpatient Vasquez, Holger [facility] [id number] [facility] 2021-04-07 14:23:09 Outpatient Vasquez, Holger [facility] [id number] [facility] 2021-04-07 12:17:25 Outpatient Vasquez, Holger [facility] ST[facility] [id number] [facility] 2021-04-07 11:48:37 Outpatient Vasquez, Holger [facility] [id number] [facility] 2021-04-07 11:24:50 Outpatient Vasquez, Holger [facility] [id number] [facility] 2021-04-07 11:01:24 Outpatient Vasquez, Holger ST[facility] STL[facility] [id number] [facility] 2021-04-07 10:59:30 Outpatient Vasquez, Holger STLMLC STLMLC [id number] [facility] 2021-04-07 10:58:52 Outpatient Holger Vasquez STLMLC STLMLC [id number] [facility] 2023-12-01 00:00:00 2023-12-01 00:00:00 (TEL) STLMLC STLMLC [id number] [facility] 2023-11-03 00:00:00 2023-11-03 00:00:00 OFFICE VISIT ESTAB PT LEVEL 3 STLMLC STL[facility]C [id number] [facility] 2023-11-02 00:00:00 2023-11-02 00:00:00 (TEL) STLMLC STLMLC [id number] [facility] 2023-10-04 00:00:00 2023-10-04 00:00:00 PREV VISIT EST AGE 18-39 STLMLC STLMLC [id number] [facility] 2023-06-08 13:53:18 2023-06-08 13:53:18 Outpatient SFA SFA [id number] Kevin He Javan 2023-05-11 11:16:07 2023-05-11 11:16:07 Outpatient SFA SFA [id number] Kevin Edouard 2023-01-24 09:38:08 2023-01-24 09:38:08 Outpatient SFA SFA [id number] Kevin He Javan 2022-12-22 12:38:55 2022-12-22 12:38:55 Outpatient SFA SFA [id number] Kevin He Javan 2022-11-30 00:00:00 2022-11-30 00:00:00 OFFICE VISIT ESTAB PT LEVEL 3 STLMLC STLMLC [id number] [facility] 2022-11-24 13:26:08 2022-11-24 13:26:08 Outpatient SFA SFA [id number] Kevin He Javan 2022-09-27 00:00:00 2022-09-27 00:00:00 OFFICE VISIT ESTAB PT LEVEL 3 STLMLC STLMLC [id number] [facility] 2022-09-26 00:00:00 2022-09-26 00:00:00 (TEL) STLMLC STLMLC [id number] [facility] 2022-06-24 00:00:00 2022-06-24 00:00:00 (TEL) STLMLC STLMLC [id number] [facility] 2022-06-02 00:00:00 2022-06-02 00:00:00 PREV VISIT EST AGE 18-39 STLMLC STLMLC [id number] [facility] 2022-05-13 00:00:00 2022-05-13 00:00:00 (TEL) STLMLC STLMLC [id number] [facility] 2022-04-26 00:00:00 2022-04-26 00:00:00 (TEL) STLMLC STLMLC [id number] [facility] 2021-09-21 05:31:00 2021-09-21 05:31:00 Outpatient AMBREEN_FAR [facility] [id number] [facility] 2021-05-17 00:00:00 2021-05-17 00:00:00 OFFICE VISIT EST PT LEVEL 3 STLMLC STLMLC [id number] [facility] 2021-02-19 00:00:00 2021-02-19 00:00:00 OFFICE VISIT EST PT LEVEL 3 STLMLC STLMLC [id number] [facility] 2021-02-18 00:00:00 2021-02-18 00:00:00 (TEL) STLMLC STLMLC [id number] [facility] 2020-09-17 00:00:00 2020-09-17 00:00:00 OFFICE VISIT EST PT LEVEL 3 STLMLC STLMLC [id number] [facility] 2020-07-30 00:00:00 2020-07-30 00:00:00 (TEL) STLMLC STLMLC [id number] [facility] 2020-06-12 00:00:00 2020-06-12 00:00:00 (TEL) STLMLC STLMLC [id number] [facility] 2020-06-12 00:00:00 2020-06-12 00:00:00 OFFICE VISIT ESTAB PT LEVEL 4 STLMLC STLMLC [id number] [facility] 2020-06-02 00:00:00 2020-06-02 00:00:00 (TEL) STLMLC STLMLC [id number] [facility] 2020-05-28 00:00:00 2020-05-28 00:00:00 (TEL) STLMLC STLMLC [id number] [facility] 2020-03-20 00:00:00 2020-03-20 00:00:00 Outpatient STLMLC STL[facility]C [id number] [facility] 2019-12-13 00:00:00 2019-12-13 00:00:00 Outpatient STLMLC STLMLC [id number] [facility] 2019-12-12 00:00:00 2019-12-12 00:00:00 Outpatient STLMLC STL[facility]C [id number] [facility] 2019-11-06 09:54:00 2019-11-06 09:54:[address] [facility] [id number] [facility] 2019-11-04 13:40:00 2019-11-04 13:40:[address] [facility] [id number] [facility] 2019-05-02 08:18:00 2019-05-02 08:18:[address] [facility] [id number] [facility] 2019-04-03 09:30:00 2019-04-03 09:30:[address] [facility] [facility] [id number] [facility] 2019-03-20 09:15:00 2019-03-20 09:15:00 [facility] [id number] [facility] 2019-03-19 16:57:00 2019-03-19 16:57:[address] [facility] [facility] [id number] [facility] 2018-12-25 13:15:00 2018-12-25 13:15:00 [facility] [id number] [facility] 2018-09-24 14:00:00 2018-09-24 14:00:[address] [facility] [facility] [id number] [facility] 2018-08-22 14:45:00 2018-08-22 14:45:[address] [facility] [facility] [id number] [facility] 2018-05-08 13:15:00 2018-05-08 13:15:[address] [facility] [id number] [facility] 2017-10-04 11:00:00 2017-10-04 11:00:[address] [facility] [facility] [id number] [facility] 2017-06-01 10:30:00 2017-06-01 10:30:[address] [facility] [facility] [id number] [facility] Results Test Description Test Time Test Comments Results Result Co mments Source TSH, THIRD [id number] 07:26:00* Test Item Value Reference Range Interpretation Comme nts TSH, THIRD GENERATION (test code = 2821) 2.590 UIU/ML 0.400-4.100 COMPREHENSIVE METABOLIC [id number] 07:20:05* Test Item Value Reference Range Interpretation Comme nts GLUCOSE (test code = 2217) 101 MG/DL 70-99 H BUN (test code = 2208) 13 MG/DL 6-20 CREATININE (test code = 2214) 1.07 MG/DL 0.80-1.40 eGFR (2020 CKD-EPI) (test co de = 07718) 95 ML/MIN/1.73 >60 CALC BUN/CREAT (test code = 2234) 12 RATIO 6-28 SODIUM (test code = 223) 142 MEQ/L 133-146 POTASSIUM (test code = 8) 4.7 MEQ/L 3.5-5.4 CHLORIDE (test code = 2214) 104 MEQ/L 95-107 CARBON DIOXIDE (test code = 6) 26 MEQ/L 19-31 CALCIUM (test code = 2208) 9.6 MG/DL 8.5-10.5 PROTEIN, TOTAL (test code = 2228) 7.0 G/DL 6.1-8.3 ALBUMIN (test code = 2200) 4.6 G/DL 3.5-5.2 CALC GLOBULIN (test code = 224) 2.4 G/DL 1.9-3.7 CALC A/G RATIO (test code = 2233) 1.9 RATIO 1.0-2.6 BILIRUBIN, TOTAL (test code = 2206) 0.3 MG/DL <=1.2 ALKALINE PHOSPHATASE (test code = 2203) 51 U/L 40-112 AST (test code = 221) 11 U/L 9-50 ALT (test code = 2219) 19 U/L 5-50 LIPID [id number] 07:20:05* Test Item Value Reference Range Interpretation Comme nts CHOLESTEROL (test code = 2210) 179 MG/DL <200 TRIGLYCERIDES (test code = 2232) 150 MG/DL <150 H HDL CHOLESTEROL (test code = 2219) 36 MG/DL >39 L CALC LDL CHOL (test code = 2237) 117 MG/DL <100 H NOTE: CALCULATED LDL IS BASED ON TIARA-XAVIER METHOD WHICHINCLUDES ADJUSTABLE TRIGLYCERIDE:VLDL CHOLESTEROL RATIO.THIS FACTOR VARIES BY MEASURED TRIGLYCERIDE AND NON-HDLCHOLESTEROL CONCENTRATIONS WITH INCREASED CALCULATED LDL SEENIN HIGHER TRIGLYCERIDE OR LOWER NON-HDL SPECIMENS. FOR MOREINFORMATION, SEE CLIENT ANNOUNCEMENT AT [email or web address] RISK RATIO LDL/HDL (test code = 2238) 3.25 RATIO <3.55 CBC W/AUTO DIFF WITH [id number] 04:20:56* Test Item Value Reference Range Interpretation Comme nts WBC (test code = 1001) 8.4 K/UL 3.5-11.0 RBC (test code = 1002) 5.04 M/UL 4.50-6.10 HEMOGLOBIN (test code = 1003) 15.4 G/DL 13.5-17.0 HEMATOCRIT (test code = 1004) 45.2 % 40.0-51.0 MCV (test code = 1005) 89.7 fL 80.0-99.0 MCH (test code = 1006) 30.6 PG 25.0-33.0 MCHC (test code = 1007) 34.1 G/DL 31.0-36.0 RDW (test code = 1038) 12.7 % 11.5-15.0 NEUTROPHILS (test code = 1008) 58.8 % LYMPHOCYTES (test code = 1010) 34.3 % MONOCYTES (test code = 1011) 5.6 % EOSINOPHILS (test code = 1012) 0.7 % BASOPHILS (test code = 1013) 0.4 % IMMATURE GRANULOCYTES (test code = 1036) 0.2 % NUCLEATED RBCS (test code = 1065) 0.0 /100 WBC'S See_Comment [Automated messa ge] The system which generated this result transmitted reference range: 0.0. The reference range was not used to interpret this result as normal/abnormal. PLATELET COUNT (test code = 1015) 291 K/UL 130-400 ABSOLUTE NEUTROPHILS (test code = 1066) 4.92 K/UL 1.50-7.50 ABSOLUTE LYMPHOCYTES (test code = 1067) 2.87 K/UL 1.00-4.00 ABSOLUTE MONOCYTES (test code = 1068) 0.47 K/UL 0.20-1.00 ABSOLUTE EOSINOPHILS (test code = 1040) 0.06 K/UL 0.00-0.50 ABSOLUTE BASOPHILS (test code = 1069) 0.03 K/UL 0.00-0.20 ABS IMMATURE GRANULOCYTES (test code = 1020) 0.02 K/UL 0.00-0.10 ABS NUCLEATED RBCS (test code = 02909) 0.00 K/UL 0.00-0.11 HEMOGLOBIN [id number] 04:19:30* Test Item Value Reference Range Interpretation Comme nts HEMOGLOBIN A1c (test code = 48841) 5.3 % 4.2-5.6 UNLESS OTHERWISE INDICATED, ALL TESTING PERFORMED AT [facility] [address] [place] [address] RAIL FLAW DETECTOR OPERATOR: AKSHAT MOORE M.D. [place] NUMBER [id number] [facility] [place]. [id number] CBC W/AUTO [id number] 00:00:00* Test Item Value Reference Range Interpretation Comme nts NUCLEATED RBCS (test code = 15256-9) 0.0 /100 WBC'S See_Comment [Automated messa ge] The system which generated this result transmitted reference range: 0.0 /100 WBC'S. The reference range was not used to interpret this result as normal/abnormal. ABSOLUTE EOSINOPHILS (test code = 83159-9) 0.09 K/UL See_Comment [Automated messa ge] The system which generated this result transmitted reference range: 0.00-0.50 K/UL. The reference range was not used to interpret this result as normal/abnormal. ABSOLUTE LYMPHOCYTES (test code = 48033-9) 3.74 K/UL See_Comment [Automated messa ge] The system which generated this result transmitted reference range: 1.00-4.00 K/UL. The reference range was not used to interpret this result as normal/abnormal. ABSOLUTE MONOCYTES (test code = 67003-8) 0.48 K/UL See_Comment [Automated messa ge] The system which generated this result transmitted reference range: 0.20-1.00 K/UL. The reference range was not used to interpret this result as normal/abnormal. ABSOLUTE NEUTROPHILS (test code = 84998-1) 5.32 K/UL See_Comment [Automated messa ge] The system which generated this result transmitted reference range: 1.50-7.50 K/UL. The reference range was not used to interpret this result as normal/abnormal. BASOPHILS (test code = 51351-8) 0.6 % EOSINOPHILS (test code = 80943-9) 0.9 % HEMATOCRIT (test code = 35098-9) 45.2 % See_Comment [Automated messa ge] The system which generated this result transmitted reference range: 40.0-51.0 %. The reference range was not used to interpret this result as normal/abnormal. HEMOGLOBIN (test code = 718-7) 15.5 G/DL See_Comment [Automated messa ge] The system which generated this result transmitted reference range: 13.5-17.0 G/DL. The reference range was not used to interpret this result as normal/abnormal. LYMPHOCYTES (test code = 44627-3) 38.5 % MCH (test code = 90454-3) 30.2 PG See_Comment [Automated messa ge] The system which generated this result transmitted reference range: 25.0-33.0 PG. The reference range was not used to interpret this result as normal/abnormal. MCHC (test code = 73613-2) 34.3 G/DL See_Comment [Automated messa ge] The system which generated this result transmitted reference range: 31.0-36.0 G/DL. The reference range was not used to interpret this result as normal/abnormal. MCV (test code = 10568-1) 88.1 fL See_Comment [Automated messa ge] The system which generated this result transmitted reference range: 80.0-99.0 fL. The reference range was not used to interpret this result as normal/abnormal. MONOCYTES (test code = 18472-1) 4.9 % NEUTROPHILS (test code = 12793-3) 54.8 % PLATELET COUNT (test code = 32342-8) 295 K/UL See_Comment [Automated messa ge] The system which generated this result transmitted reference range: 130-400 K/UL. The reference range was not used to interpret this result as normal/abnormal. RBC (test code = 06262-5) 5.13 M/UL See_Comment [Automated messa ge] The system which generated this result transmitted reference range: 4.50-6.10 M/UL. The reference range was not used to interpret this result as normal/abnormal. RDW (test code = 56827-5) 12.7 % See_Comment [Automated messa ge] The system which generated this result transmitted reference range: 11.5-15.0 %. The reference range was not used to interpret this result as normal/abnormal. WBC (test code = 33776-7) 9.7 K/UL See_Comment [Automated messa ge] The system which generated this result transmitted reference range: 3.5-11.0 K/UL. The reference range was not used to interpret this result as normal/abnormal. TSH, THIRD [id number] 06:43:12* Test Item Value Reference Range Interpretation Comme nts TSH, THIRD GENERATION (test code = 2821) 2.850 UIU/ML 0.400-4.100 UNLESS OTHERWISE INDICATED, ALL [facility] [address] [place] [address] RAIL FLAW DETECTOR OPERATOR: SUSANNAH GROSS M.D. [place] NUMBER [id number] [facility] [place]. [id number] COMPREHENSIVE METABOLIC [id number] 05:30:01* Test Item Value Reference Range Interpretation Comme nts GLUCOSE (test code = 2217) 89 MG/DL 70-99 BUN (test code = 220) 11 MG/DL 6-20 CREATININE (test code = 2214) 1.05 MG/DL 0.80-1.40 eGFR (2020 CKD-EPI) (test code = 80120) 98 ML/MIN/1.73 >60 CALC BUN/CREAT (test code = 2235) 10 RATIO 6-28 SODIUM (test code = 2231) 147 MEQ/L 133-146 H POTASSIUM (test code = 2228) 4.9 MEQ/L 3.5-5.4 CHLORIDE (test code = 2215) 109 MEQ/L 95-107 H CARBON DIOXIDE (test code = 2206) 25 MEQ/L 19-31 CALCIUM (test code = 2209) 9.7 MG/DL 8.5-10.5 PROTEIN, TOTAL (test code = 2229) 7.0 G/DL 6.1-8.3 ALBUMIN (test code = 2201) 4.5 G/DL 3.5-5.2 CALC GLOBULIN (test code = 2240) 2.5 G/DL 1.9-3.7 CALC A/G RATIO (test code = 2234) 1.8 RATIO 1.0-2.6 BILIRUBIN, TOTAL (test code = 2207) 0.6 MG/DL See_Comment [Automated me ssage] The system which generated this result transmitted reference range: <=1.2. The reference range was not used to interpret this result as normal/abnormal. ALKALINE PHOSPHATASE (test code = 2204) 56 U/L 40-115 AST (test code = 2218) 14 U/L 9-50 ALT (test code = 2219) 18 U/L 5-50 LIPID [id number] 05:30:01* Test Item Value Reference Range Interpretation Comme nts CHOLESTEROL (test code = 2210) 173 MG/DL <200 TRIGLYCERIDES (test code = 2232) 164 MG/DL <150 H HDL CHOLESTEROL (test code = 2220) 39 MG/DL >39 L CALC LDL CHOL (test code = 2237) 106 MG/DL <100 H NOTE: CALCULATED LDL IS BASED ON TIARA-XAVIER METHOD WHICHINCLUDES ADJUSTABLE TRIGLYCERIDE:VLDL CHOLESTEROL RATIO.THIS FACTOR VARIES BY MEASURED TRIGLYCERIDE AND NON-HDLCHOLESTEROL CONCENTRATIONS WITH INCREASED CALCULATED LDL SEENIN HIGHER TRIGLYCERIDE OR LOWER NON-HDL SPECIMENS. FOR MOREINFORMATION, SEE CLIENT ANNOUNCEMENT AT [email or web address] /CalcLDL-C RISK RATIO LDL/HDL (test code = 2238) 2.72 RATIO <3.55 HEMOGLOBIN [id number] 03:39:22* Test Item Value Reference Range Interpretation Comme nts HEMOGLOBIN A1c (test code = 17300) 5.3 % 4.2-5.6 CBC W/AUTO DIFF WITH [id number] 02:23:36* Test Item Value Reference Range Interpretation Comme nts WBC (test code = 1001) 9.4 K/UL 3.5-11.0 RBC (test code = 1002) 5.19 M/UL 4.50-6.10 HEMOGLOBIN (test code = 1003) 15.3 G/DL 13.5-17.0 HEMATOCRIT (test code = 1004) 44.6 % 40.0-51.0 MCV (test code = 1005) 85.9 fL 80.0-99.0 MCH (test code = 1006) 29.5 PG 25.0-33.0 MCHC (test code = 1007) 34.3 G/DL 31.0-36.0 RDW (test code = 1038) 12.7 % 11.5-15.0 NEUTROPHILS (test code = 1008) 54.2 % LYMPHOCYTES (test code = 1010) 38.9 % MONOCYTES (test code = 1011) 5.3 % EOSINOPHILS (test code = 1012) 0.9 % BASOPHILS (test code = 1013) 0.5 % IMMATURE GRANULOCYTES (test code = 1036) 0.2 % NUCLEATED RBCS (test code = 1065) 0.0 /100 WBC'S See_Comment [Automated [employer] ge] The system which generated this result transmitted reference range: 0.0. The reference range was not used to interpret this result as normal/abnormal. PLATELET COUNT (test code = 1015) 303 K/UL 130-400 ABSOLUTE NEUTROPHILS (test code = 1066) 5.07 K/UL 1.50-7.50 ABSOLUTE LYMPHOCYTES (test code = 1067) 3.64 K/UL 1.00-4.00 ABSOLUTE MONOCYTES (test code = 1068) 0.50 K/UL 0.20-1.00 ABSOLUTE EOSINOPHILS (test code = 1040) 0.08 K/UL 0.00-0.50 ABSOLUTE BASOPHILS (test code = 1069) 0.05 K/UL 0.00-0.20 ABS IMMATURE GRANULOCYTES (test code = 1020) 0.02 K/UL 0.00-0.10 ABS NUCLEATED RBCS (test code = 07405) 0.00 K/UL 0.00-0.11
[2023-12-06 15:29] LABS: Absolute Basophils 0.1 K/uL (0-0.5); Absolute Eosinophils 0.1 K/uL (0-0.5); Absolute Lymphocytes (CBC) 2.9 K/uL (0.7-4.9); Absolute Monocytes 0.5 K/uL (0.1-1.3); Absolute Neutrophil 7.5 K/uL (1.8-8.0); Basophils % 0.6 % (0-1.3); Eosinophils % 0.5 % (0-4.4); Hematocrit 42.8 % (39.6-49.0); Hemoglobin 14.6 g/dL (13.6-17.9); Lymphocytes % 26.4 % (15.3-44.8); MCH 29.6 pg (27.0-35.0); MCHC 34.1 g/dL (32.0-36.0); MCV 86.9 fL (80-100); MPV 7.7 fL (7.6-11.3); Monocytes % 4.6 % (3.3-12.3); Neutrophils % 67.9 % (41.7-73.7); Nucleated Red Blood Cells % 0.1 % (0-0); Platelets 282 thou/uL (152-406); RBC Red Blood Cell Count 4.92 M/uL (4.33-5.43); Red Cell Distribution Width 13.4 % (12.1-15.2)
[2023-12-06 15:41] LABS: Anion Gap 8.7 mEq/L (5.0-15.0); Potassium 3.7 mEq/L (3.5-5.1); Troponin High Sensitivity 3.4 pg/mL (<58.9)
--- NOTE | 2023-12-06 16:20 | RAD REPORT ---
EXAMINATION: ONE VIEW CHEST XR CLINICAL INDICATION: Male, 33 years old.,CHEST PAIN TECHNIQUE: Frontal chest projection is submitted. Examination is limited by patient positioning and t echnique. COMPARISON: 10/18/2022. FINDINGS: The lungs are well inflated and clear. No pneumothorax or sizable effusion. The heart is normal in s ize. IMPRESSION: No acute intrathoracic abnormalities.
[2023-12-06] MEDS ORDERED: CYCLOBENZAPRINE 10 MG TAB ONE (16:44)
[2023-12-06] MEDS ORDERED: KETOROLAC 30 MG/ML INJ ONE (16:44)
--- NOTE | 2023-12-06 17:23 | ER ---
Nurse's Notes [facility] Name: Kenton Asencio Age: 33 yrs Sex: Male : 1990 Arrival Date: 12/06/2023 Time: 13:56 Bed 15 Private MD: Diagnosis: Chest pain, unspecified Presentation: 12/05 14:03 Chief complaint: Patient states: STARTED WITH COLD/FLU LIKE SYMPTOMS THEN 3 DAYS AGO db STARTED HAVING COUGH, CHEST, BACK PAIN WITH SOB AND SWEATING. TRIED AT HOME ALBUTEROL INHALER AND NOT HELPING. Coronavirus screen: Client denies travel out of the [place] in the last 14 days. At this time, the client does not indicate any symptoms associated with coronavirus-19. Ebola Screen: Patient negative for fever greater than or equal to 101.5 degrees Fahrenheit, and additional compatible Ebola Virus Disease symptoms Patient denies exposure to infectious person. Patient denies travel to an Ebola-affected area in the 21 days before illness onset. No symptoms or risks identified at this time. Initial Sepsis Screen: Does the patient meet any 2 criteria? No. Patient's initial sepsis screen is negative. Does the patient have a suspected source of infection? No. Patient's initial sepsis screen is negative. Risk Assessment: Do you want to hurt yourself or someone else? Patient reports no desire to harm self or others. Onset of symptoms was December 03, 2023. 14:03 Method Of Arrival: Ambulatory db 14:03 Acuity: MEREDITH 3 db Triage Assessment: 14:05 General: Appears in no apparent distress. comfortable, Behavior is calm, cooperative, db appropriate for age. Pain: Complains of pain in back and chest Pain currently is 2 out of 10 on a pain scale. Neuro: Level of Consciousness is awake, alert, obeys commands, Oriented to person, place, time, situation. Cardiovascular: Reports chest pain, shortness of breath. Respiratory: Airway is patent Respiratory effort is even, unlabored, Respiratory pattern is regular, symmetrical. Historical: - Allergies: 14:05 No Known Allergies; db - PMHx: 14:05 Asthma; Hypercholesterolemia; db - Immunization history:: Adult Immunizations unknown. - Infectious Disease History:: Denies. - Social history:: Smoking status: Patient denies any tobacco usage or history of. Screenin:21 [facility] ED Fall Risk Assessment (Adult) History of falling in the last 3 months, iw including since admission No falls in past 3 months (0 pts) Confusion or Disorientation No (0 pts) Intoxicated or Sedated No (0 pts) Impaired Gait No (0 pts) Mobility Assist Device Used No (0 pt) Altered Elimination No (0 pt) Score/Fall Risk Level 0 - 2 = Low Risk Oriented to surroundings, Maintained a safe environment. Abuse screen: Denies threats or abuse. Denies injuries from another. Nutritional screening: No deficits noted. Tuberculosis screening: No symptoms or risk factors identified. Assessment: 16:20 Reassessment: Patient appears in no apparent distress at this time. Patient and/or iw family updated on plan of care and expected duration. Pain level reassessed. Patient is alert, oriented x 3, equal unlabored respirations, skin warm/dry/pink. 17:03 Reassessment: Patient appears in no apparent distress at this time. Patient and/or iw family updated on plan of care and expected duration. Pain level reassessed. Patient is alert, oriented x 3, equal unlabored respirations, skin warm/dry/pink. Patient states feeling better. Patient states symptoms have improved. 17:46 Reassessment: Patient appears in no apparent distress at this time. Patient and/or iw family updated on plan of care and expected duration. Pain level reassessed. Patient is alert, oriented x 3, equal unlabored respirations, skin warm/dry/pink. Vital Signs: 14:03 BP 135 / 90; Pulse 106; Resp 20; Temp 98; Pulse Ox 99% ; Weight 127.01 kg; Height 5 ft. db 5 in. ; Pain 2/10; 16:21 BP 146 / 94; Pulse 85; Resp 16; Pulse Ox 99% on R/A; iw 17:47 BP 106 / 75; Pulse 84; Resp 16; Pulse Ox 98% on R/A; Pain 0/10; iw 14:03 Body Mass Index 46.59 (127.01 kg, 165.1 cm) db 14:03 Pain Scale: Adult db 17:47 Pain Scale: Adult iw ED Course: 13:58 Patient arrived in ED. im 14:03 Oswaldo Iglesias NP is PHCP. pm1 14:03 Bhargavi De Luna MD is Attending Physician. pm1 14:05 Triage completed. db 14:05 Arm band placed on right wrist. Patient placed in an exam room. db 14:05 Provided Education on: . Client placed on continuous cardiac and pulse oximetry iw monitoring. NIBP monitoring applied. environmental monitoring specialist on. 14:06 Stephanie Augustin, RN is Primary Nurse. iw 15:02 Initial lab(s) drawn, by me, sent to lab. Inserted saline lock: 20 gauge in right iw antecubital area, using aseptic technique. Blood collected. Flushed with 10 mL NS. Patient maintains SpO2 saturation greater than 95% on room air. 15:14 XRAY Chest (1 view) In Process Unspecified. EDMS 17:04 Patient has correct armband on for positive identification. iw 17:47 No provider procedures requiring assistance completed. IV discontinued, intact, iw bleeding controlled, No redness/swelling at site. Pressure dressing applied. Administered Medications: 16:50 Drug: Ketorolac IVP 15 mg IVP once Route: IVP; Site: right antecubital; iw 16:50 Drug: Cyclobenzaprine PO 10 mg PO once Route: PO; iw Medication: 16:21 VIS not applicable for this client. iw Outcome: 17:22 Discharge ordered by . pm1 17:47 Discharged to home ambulatory, iw 17:47 Condition: good 17:47 Discharge instructions given to patient, Instructed on discharge instructions, follow up and referral plans. medication usage, Demonstrated understanding of instructions, follow-up care, medications, Prescriptions given X 2, 17:47 Patient left the ED. iw Signatures: Dispatcher [employer] [facility] Stephanie Augustin, XI LAYNE iw Oswaldo Iglesias, [employer]MENT [employer]SEMBLER pm1 Sindy Hamlin RN RN db Carisa Riley Corrections: (The following items were deleted from the chart) 14:05 14:03 Onset of symptoms was December 06, 2023 db db
--- NOTE | 2023-12-06 17:23 | EDPHYS ---
Physician Documentation [facility] Name: Kenton Asencio Age: 33 yrs Sex: Male : 1990 Arrival Date: 12/06/2023 Time: 13:56 Bed 15 Private MD: ED Physician Bhargavi De Luna HPI: 12/05 15:47 This 33 yrs old Male presents to ER via Ambulatory with complaints of Chest pm1 Pain, Shortness Of Breath. 15:47 The patient or guardian reports chest pain that is located primarily in the anterior pm1 aspect of right upper chest, anterior aspect of left upper chest and mid-sternal area. The pain does not radiate. Associated signs and symptoms: Pertinent positives: shortness of breath, upper bilateral back pain, Pertinent negatives: abdominal pain, nausea, palpitations, vomiting. The chest pain is described as aching. Duration: The patient or guardian reports a single episode, that is still ongoing, onset 3 days ago. Modifying factors: The symptoms are alleviated by nothing. the symptoms are aggravated by nothing. Severity of pain: in the emergency department the pain is actually worse. The patient has not experienced similar symptoms in the past. The patient has not recently seen a physician. Historical: - Allergies: 14:05 No Known Allergies; db - PMHx: 14:05 Asthma; Hypercholesterolemia; db - Immunization history:: Adult Immunizations unknown. - Infectious Disease History:: Denies. - Social history:: Smoking status: Patient denies any tobacco usage or history of. ROS: 15:47 Constitutional: Negative for fever, chills, and weight loss, pm1 15:47 Respiratory: Negative for shortness of breath, cough, wheezing, and pleuritic chest pain, Abdomen/GI: Negative for abdominal pain, nausea, vomiting, diarrhea, and constipation, Back: Negative for injury and pain, MS/Extremity: Negative for injury and deformity, Skin: Negative for injury, rash, and discoloration, Neuro: Negative for headache, weakness, numbness, tingling, and seizure, 15:47 Cardiovascular: Positive for chest pain, Negative for edema, palpitations, 15:47 All other systems are negative, Exam: 14:49 ECG was reviewed by the Attending Physician. pm1 14:49 Constitutional: This is a well developed, well nourished patient who is awake, alert, pm1 and in no acute distress. Head/Face: Normocephalic, atraumatic. 14:49 Skin: Warm, dry with normal turgor. Normal color with no rashes, no lesions, and no evidence of cellulitis. MS/ Extremity: Pulses equal, no cyanosis. Neurovascular intact. Full, normal range of motion. 14:49 Cardiovascular: Exam negative for acute changes, Rate: normal, Rhythm: regular, Pulses: no pulse deficits are appreciated, Heart sounds: normal, Edema: is not appreciated, 14:49 Respiratory: Exam negative for acute changes, respiratory distress, shortness of breath, Breath sounds: are clear throughout, 14:49 Abdomen/GI: Inspection: obese Palpation: abdomen is soft and non-tender, in all quadrants, 14:49 Neuro: Exam negative for acute changes, 14:49 Psych: Exam negative for acute changes, Vital Signs: 14:03 BP 135 / 90; Pulse 106; Resp 20; Temp 98; Pulse Ox 99% ; Weight 127.01 kg; Height 5 ft. db 5 in. ; Pain 2/10; 16:21 BP 146 / 94; Pulse 85; Resp 16; Pulse Ox 99% on R/A; iw 17:47 BP 106 / 75; Pulse 84; Resp 16; Pulse Ox 98% on R/A; Pain 0/10; iw 14:03 Body Mass Index 46.59 (127.01 kg, 165.1 cm) db 14:03 Pain Scale: Adult db 17:47 Pain Scale: Adult iw MDM: 14:03 Patient medically screened. pm1 16:13 Data reviewed: vital signs. pm1 16:13 Differential diagnosis: chest wall pain, pulmonary embolus, ACS, OK. pm1 16:13 Care significantly affected by the following Social Determinants of Health: Poor access pm1 to healthcare and/or lack of insurance. 16:13 Care significantly affected by the following chronic conditions: Obesity, Anxiety, pm1 asthma , HLD. 16:13 Test considered but Not performed: CT: d-dimer is negative. pm1 16:28 Counseling: I had a detailed discussion with the patient and/or guardian regarding the pm1 historical points, exam findings, and any diagnostic results supporting the discharge/admit diagnosis, lab results, radiology results, the need for outpatient follow up, Will treat with NSAID and muscle relaxant and reevaluate prior to discharge. 17:20 ED course: Patient feels better with medications given in the ER. Will discharge the pm1 patient home with similar medications. 12/05 14:31 Order name: Basic Metabolic Panel; Complete Time: 15:46 pm1 12/05 14:31 Order name: CBC with Diff; Complete Time: 16:12 pm12/05 14:31 Order name: D-Dimer; Complete Time: 16:12 pm12/05 14:31 Order name: Magnesium; Complete Time: 15:46 pm12/05 14:31 Order name: NT PRO-BNP; Complete Time: 15:46 pm12/05 14:31 Order name: Troponin HS; Complete Time: 15:46 pm1 12/05 14:31 Order name: XRAY Chest (1 view); Complete Time: 16:21 pm12/05 14:31 Order name: Cardiac monitoring; Complete Time: 15:06 pm12/05 14:31 Order name: EKG - Nurse/Tech; Complete Time: 15:02 pm12/05 14:31 Order name: IV Saline Lock; Complete Time: 15:02 pm12/05 14:31 Order name: Labs collected and sent; Complete Time: 15:02 pm12/05 14:31 Order name: O2 Per Protocol; Complete Time: 15:02 pm12/05 14:31 Order name: O2 Sat Monitoring; Complete Time: 15:02 pm1 EC:49 Rate is 91 beats/min. Rhythm is regular, Normal Sinus Rhythm with No ectopy. QRS [place] pm1 is Normal. [place] interval is normal. QRS interval is normal. QT interval is normal. No Q waves. T waves are Normal. No ST changes noted. Clinical impression: Normal ECG. Administered Medications: 16:50 Drug: Ketorolac IVP 15 mg IVP once Route: IVP; Site: right antecubital; iw 16:50 Drug: Cyclobenzaprine PO 10 mg PO once Route: PO; iw Disposition: 18:24 I reviewed the patient's care provided by the Advanced Practice Provider and agree with sd2 the diagnosis and treatment plan. Disposition Summary: 12/06/23 17:22 Discharge Ordered Notes: Location: Home pm1 Problem: new pm1 Symptoms: have improved pm1 Condition: Stable pm1 Diagnosis - Chest pain, unspecified pm1 Followup: pm1 - With: Emergency Department - When: As needed - Reason: Worsening of condition Followup: pm1 - With: Private Physician - When: 2 - 3 days - Reason: Recheck today's complaints, Continuance of care, Re-evaluation by your physician Discharge Instructions: - Discharge Summary Sheet pm1 - Nonspecific Chest Pain, Adult pm1 Forms: - Medication Reconciliation Form pm1 - Antibiotic Education pm1 - Prescription Opioid Use pm1 - Patient Portal Instructions pm1 - Leadership Thank You Letter pm1 Prescriptions: - Cyclobenzaprine 10 mg Oral tablet - take 1 tablet ORAL route every 8 hours As needed; 12 tablet; Refills: 0, pm1 Product Selection Permitted - Diclofenac Sodium 75 mg Oral tablet, delayed release (enteric coated) - take 1 tablet ORAL route 2 times per day As needed; 30 tablet; Refills: 0, pm1 Product Selection Permitted Signatures: Dispatcher [employer] EDMS Stephanie Augustin RN RN iw Oswaldo Iglesias NP DONKEY RIDE OPERATOR pm1 Bhargavi De Luna MD MD sd2 Sindy Hamlin RN RN db Corrections: (The following items were deleted from the chart) 14:32 14:32 BASIC METABOLIC PANEL+C.LAB.BRZ ordered. EDMS EDMS 14:32 14:32 CBC+H.LAB.BRZ ordered. EDMS EDMS 14:32 14:32 D-DIMER+COAG.LAB.BRZ ordered. EDMS EDMS 14:32 14:32 MAGNESIUM+C.LAB.BRZ ordered. EDMS EDMS 14:32 14:32 PROBNP+C.LAB.BRZ ordered. EDMS EDMS 14:32 14:32 Troponin High Sensitivity+C.LAB.BRZ ordered. EDMS EDMS
[2023-12-06 18:13] VITALS: TEMP 98
[2023-12-06 18:17] VITALS: BP 106/75; O2SAT 98
--- NOTE | 2023-12-07 12:10 | EKG ---
Test Date: 2023-12-06 Test Time: 14:14:33 Clinical Education Coordinator: RACH MEASUREMENT RESULTS: Intervals: Rate: 91 NC: 138 QRSD: 100 QT: 344 QTc: 423 [place]: P: 32 NC: 138 QRS: 15 T: 19 INTERPRETIVE STATEMENTS: Normal sinus rhythm Nonspecific T wave abnormality Abnormal ECG Compared to ECG 10/18/2022 18:53:08 T-wave abnormality now present Electronically Signed On 12-07-23 12:07:53 CDT by Marek Gore
== END 2023-12-06 17:47 | disposition home or self-care (01) ==
LOC: ER 13:56
DX: R07.9 Chest pain, unspecified (principal); R06.02 Shortness of breath
CPT/HCPCS: 36415; 71045; 80048; 83735; 83880; 84484; 85025; 85379; 93005; 96374; 99285

== ENCOUNTER 2024-04-13 00:23 | Emergency (ER) | payer OTHER ==
--- OUTSIDE RECORDS SUMMARY | 2024-04-13 00:27 | XMS REPORT | Continuity of Care Document ---
Author Name Unknown Address [address] [facility] [address] [place] [address] [facility] thconnect Address [address] [facility] [place] [address] Care Team Providers Care Aurist Name Role Phone Holger Vasquez Attending Clinician Unavailable AMBREEN_AJIT Attending Clinician Unavailable THUANREEN_AJIT Admitting Clinician Unavailable Payers Payer Name Policy Type Policy Number Effective Date Expirati on Date Source [facility] PLUS C1 [id number] [facility] PLUS C1 [id number] [facility] PLUS C1 [id number] [facility] PLUS C1 [id number] [facility] PLUS C1 [id number] [facility] PLUS C1 [id number] [facility] Problems Condition Name Condition Details Condition Category Status Onset Date Resolution Date Last Treatment Date Treating Clinician Comments Source [id number] Intermitte nt asthma without complicati on, unspecifie d asthma severity Problem Active [facility] [id number] Depression with anxiety Problem Active [facility] [id number] Seasonal allergic rhinitis, unspecifie d trigger Problem Active [facility] [id number] Erectile dysfunctio n, unspecifie d erectile dysfunctio n type Problem Active [facility] [id number] Adult BMI 40.0-44.9 kg/sq m Problem Active [facility] [id number] Subclinica l hypothyroi dism Problem Active [facility] [id number] Mild intermitte nt asthma without complicati on Problem Active [facility] [id number] Mood disorder Problem Active [facility] [id number] Leukocytos is, unspecifie d type Problem Active [facility] [id number] GERD without esophagiti s Problem Active [facility] [id number] Mixed hyperlipid emia Problem Active [facility] [id number] Fatty liver disease, nonalcohol ic Problem Active [facility] [id number] Moderate persistent asthma without complicati on Problem Active [facility] [id number] 41996 Moderate persistent asthma with acute exacerbati on Problem Active [facility] Social History Social Habit Start Date Stop Date Quantity Comments Source History of Tobacco Use [facility] Sex Assigned At [facility] Smoking Status Start Date Stop Date Source Never Smoker [facility] Medications Ordered Medication Name Filled Medication Name Start Date Stop Date Current Medication? Ordering Clinician Indication Dosage Frequency Signature (SIG) Comments Components Source Amoxicillin -Pot Clavulanate 875-125 MG Amoxicillin -Pot Clavulanate 875-125 MG 8-23 00:00: 00 No 1{table t} BID Amoxicilli n-Pot Clavulanat e 875-125 MG Kenalog (Triamcinol one) Kenalog (Triamcinol one) 1-08 00:00: 00 No 40mg [facility] Omeprazole 40 MG Omeprazole 40 MG No [...] 1{capsu le_as_n eeded} Benzonatat e 200 MG Azithromyci n 250 MG Azithromyci n 250 MG No QD Azithromyc in 250 MG Immunizations Ordered Immunization Name Filled Immunization Name Date Status Comments Source Kenalog (Triamcinolone) Kenalog (Triamcinolone) 2019-03-20 09:25:00 Completed [facility] Kenalog (Triamcinolone) Kenalog (Triamcinolone) 2019-03-20 09:25:00 Completed [facility] Boostrix (Tdap) Boostrix (Tdap) Unknown Completed [facility] Boostrix (Tdap) Boostrix (Tdap) Unknown Completed [facility] Boostrix (Tdap) Boostrix (Tdap) Unknown Completed [facility] Boostrix (Tdap) Boostrix (Tdap) Unknown Completed [facility] Boostrix (Tdap) Boostrix (Tdap) Unknown Completed [facility] Boostrix (Tdap) Boostrix (Tdap) Unknown Completed [facility] Boostrix (Tdap) Boostrix (Tdap) Unknown Completed [facility] Boostrix (Tdap) Boostrix (Tdap) Unknown Completed [facility] Vital Signs Vital Name Observation Time Observation Value Comments S fransisca height 2024-04-08 11:00:00 65 [in_i] Commo n [facility] weight 2024-04-08 11:00:00 277 [lb_av] Comm on [facility] temperature 2024-04-08 11:00:00 97 [degF] Comm on [facility] bmi 2024-04-08 11:00:00 46.09 kg/m2 Comm on [facility] height 2024-04-04 14:00:00 65 [in_i] Commo n [facility] weight 2024-04-04 14:00:00 277.5 [lb_av] Co [facility] bmi 2024-04-04 14:00:00 46.17 kg/m2 Comm on [facility] blood pressure systolic 2024-04-04 14:00:00 125 mm[Hg] [facility] blood pressure diastolic 2024-04-04 14:00:00 76 mm[Hg] Common [facility] height 2023-11-03 08:00:00 65 [in_i] Commo n [facility] weight 2023-11-03 08:00:00 274.6 [lb_av] Co [facility] temperature 2023-11-03 08:00:00 98.1 [degF] Com mon [facility] bmi 2023-11-03 08:00:00 45.69 kg/m2 Comm on [facility] oximetry 2023-11-03 08:00:00 99 % Commo n [facility] respiratory rate 2023-11-03 08:00:00 18 /min [facility] blood pressure systolic 2023-11-03 08:00:00 127 mm[Hg] Common [facility] blood pressure diastolic 2023-11-03 08:00:00 80 mm[Hg] Common [facility] height 2023-10-04 16:10:00 65 [in_i] Commo n [facility] weight 2023-10-04 16:10:00 276 [lb_av] Comm on [facility] temperature 2023-10-04 16:10:00 98 [degF] Comm on [facility] bmi 2023-10-04 16:10:00 45.92 kg/m2 Comm on [facility] oximetry 2023-10-04 16:10:00 98 % Commo n [facility] blood pressure systolic 2023-10-04 16:10:00 124 mm[Hg] Common [facility] blood pressure diastolic 2023-10-04 16:10:00 74 mm[Hg] Common [facility] height 2022-11-30 16:00:00 65 [in_i] Commo n [facility] weight 2022-11-30 16:00:00 275 [lb_av] Comm on [facility] bmi 2022-11-30 16:00:00 45.76 kg/m2 Comm on [facility] height 2022-09-27 14:40:00 65 [in_i] Commo n [facility] weight 2022-09-27 14:40:00 253 [lb_av] Comm on [facility] bmi 2022-09-27 14:40:00 42.1 kg/m2 Commo n [facility] height 2022-06-02 16:00:00 65 [in_i] Commo n [facility] weight 2022-06-02 16:00:00 253 [lb_av] Comm on [facility] temperature 2022-06-02 16:00:00 97.6 [degF] Com mon [facility] bmi 2022-06-02 16:00:00 42.1 kg/m2 Commo n [facility] oximetry 2022-06-02 16:00:00 95 % Commo n [facility] respiratory rate 2022-06-02 16:00:00 16 /min Common [facility] blood pressure systolic 2022-06-02 16:00:00 116 mm[Hg] [facility] blood pressure diastolic 2022-06-02 16:00:00 73 mm[Hg] Common [facility] height 2021-05-17 16:30:00 65 [in_i] Commo n [facility] weight 2021-05-17 16:30:00 280 [lb_av] Comm on [facility] temperature 2021-05-17 16:30:00 97.4 [degF] Com mon [facility] bmi 2021-05-17 16:30:00 46.59 kg/m2 Comm on [facility] blood pressure systolic 2021-05-17 16:30:00 122 mm[Hg] Common [facility] blood pressure diastolic 2021-05-17 16:30:00 75 mm[Hg] [facility] height 2021-02-19 10:00:00 65 [in_i] Commo n [facility] weight 2021-02-19 10:00:00 265 [lb_av] Comm on [facility] bmi 2021-02-19 10:00:00 44.09 kg/m2 Comm on [facility] height 2020-09-17 15:40:00 65 [in_i] Commo n [facility] weight 2020-09-17 15:40:00 265 [lb_av] Comm on [facility] temperature 2020-09-17 15:40:00 98 [degF] Comm on [facility] bmi 2020-09-17 15:40:00 44.09 kg/m2 Comm on [facility] blood pressure systolic 2020-09-17 15:40:00 124 mm[Hg] [facility] blood pressure diastolic 2020-09-17 15:40:00 74 mm[Hg] [facility] height 2020-06-12 10:50:00 65 [in_i] Commo n [facility] weight 2020-06-12 10:50:00 265.0 [lb_av] Co mmon [facility] temperature 2020-06-12 10:50:00 97.2 [degF] Com mon [facility] bmi 2020-06-12 10:50:00 44.09 kg/m2 Comm on [facility] oximetry 2020-06-12 10:50:00 98 % Commo n [facility] respiratory rate 2020-06-12 10:50:00 18 /min [facility] blood pressure systolic 2020-06-12 10:50:00 118 mm[Hg] [facility] blood pressure diastolic 2020-06-12 10:50:00 80 mm[Hg] [facility] Encounters Start Date/Time End Date/Time Encounter Type Admission Type Attending Clinicians Care Facility Care Department Encounter ID Source 2024-04-08 08:39:00 Outpatient Vasquez, Holger STLMLC STL[facility] [id number] [facility] 2023-11-02 09:32:00 Outpatient Vasquez, Holger STLMLC ST[facility] [id number] [facility] 2023-10-02 13:47:00 Outpatient Vasquez, Holger STLMLC STL[facility] [id number] [facility] 2022-11-29 13:15:00 Outpatient Vasquez, Holger STLC STLMLC [id number] [facility] 2022-09-27 08:05:00 Outpatient Vasquez, Holger STLMLC STLMLC [id number] [facility] 2021-04-14 14:08:00 Outpatient Vasquez, Holger STLMLC STLMLC [id number] [facility] 2021-04-07 14:33:47 Outpatient Vasquez, Holger STLMLC STLMLC [id number] [facility] 2021-04-07 14:23:18 Outpatient Vasquez, Holger STLMLC STLMLC [id number] [facility] 2021-04-07 14:23:09 Outpatient Vasquez, Holger STLMLC STLMLC [id number] [facility] 2021-04-07 12:17:25 Outpatient Vasquez, Holger STLC STLMLC [id number] [facility] 2021-04-07 11:48:37 Outpatient Vasquez, Holger STLC STLMLC [id number] [facility] 2021-04-07 11:24:50 Outpatient Vasquez, Holger STLC STLMLC [id number] [facility] 2021-04-07 11:01:24 Outpatient Vasquez, Holger STLC STLMLC [id number] [facility] 2021-04-07 10:59:30 Outpatient Vasquez, Holger STLC STLMLC [id number] [facility] 2021-04-07 10:58:52 Outpatient Vasquez, Holger STLC STLMLC [id number] [facility] 2024-04-08 00:00:00 2024-04-08 00:00:00 (TEL) STLMLC STLMLC [id number] [facility] 2024-04-08 00:00:00 2024-04-08 00:00:00 OFFICE VISIT ESTAB PT LEVEL 3 STLMLC STLMLC [id number] [facility] 2024-04-04 00:00:00 2024-04-04 00:00:00 OFFICE VISIT ESTAB PT LEVEL 4 STLMLC STLMLC [id number] [facility] 2024-01-04 00:00:00 2024-01-04 00:00:00 (TEL) STLMLC STLMLC [id number] [facility] 2023-12-01 00:00:00 2023-12-01 00:00:00 (TEL) STLMLC STLMLC [id number] [facility] 2023-11-03 00:00:00 2023-11-03 00:00:00 OFFICE VISIT ESTAB PT LEVEL 3 STLMLC STLMLC [id number] [facility] 2023-11-02 00:00:00 2023-11-02 00:00:00 (TEL) STLMLC STLMLC [id number] [facility] 2023-10-04 00:00:00 2023-10-04 00:00:00 PREV VISIT EST AGE 18-39 STLMLC STLMLC [id number] [facility] 2023-06-08 13:53:18 2023-06-08 13:53:18 Outpatient SFA SFA [id number] Kevin Edouard 2023-05-11 11:16:07 2023-05-11 11:16:07 Outpatient SFA SFA [id number] Kevin Edouard 2023-01-24 09:38:08 2023-01-24 09:38:08 Outpatient SFA SFA [id number] Kevin dEouard 2022-12-22 12:38:55 2022-12-22 12:38:55 Outpatient SFA [facility] [id number] Kevin Edouard 2022-11-30 00:00:00 2022-11-30 00:00:00 OFFICE VISIT ESTAB PT LEVEL 3 STLMLC STLMLC [id number] [facility] 2022-11-24 13:26:08 2022-11-24 13:26:08 Outpatient SFA SFA [id number] Kevin Edouard 2022-09-27 00:00:00 2022-09-27 00:00:00 OFFICE VISIT ESTAB PT LEVEL 3 STLMLC STLMLC [id number] [facility] 2022-09-26 00:00:00 2022-09-26 00:00:00 (TEL) STLMLC STLMLC [id number] [facility] 2022-06-24 00:00:00 2022-06-24 00:00:00 (TEL) STLMLC STLMLC [id number] [facility] 2022-06-02 00:00:00 2022-06-02 00:00:00 PREV VISIT EST AGE 18-39 STLMLC STLMLC [id number] [facility] 2022-05-13 00:00:00 2022-05-13 00:00:00 (TEL) STLMLC STLMLC [id number] [facility] 2022-04-26 00:00:00 2022-04-26 00:00:00 (TEL) STLMLC STLMLC [id number] [facility] 2021-09-21 05:31:00 2021-09-21 05:31:00 Outpatient AMBREEN_ABIMAEL LOPEZ [facility] [id number] [facility] 2021-05-17 00:00:00 2021-05-17 00:00:00 OFFICE VISIT EST PT LEVEL 3 STLMLC STLMLC [id number] [facility] 2021-02-19 00:00:00 2021-02-19 00:00:00 OFFICE VISIT EST PT LEVEL 3 STLMLC STLMLC [id number] [facility] 2021-02-18 00:00:00 2021-02-18 00:00:00 (TEL) STLMLC STLMLC [id number] [facility] 2020-09-17 00:00:00 2020-09-17 00:00:00 OFFICE VISIT EST PT LEVEL 3 STLMLC STLMLC [id number] [facility] 2020-07-30 00:00:00 2020-07-30 00:00:00 (TEL) STLMLC STLMLC [id number] [facility] 2020-06-12 00:00:00 2020-06-12 00:00:00 (TEL) STLMLC STLMLC [id number] [facility] 2020-06-12 00:00:00 2020-06-12 00:00:00 OFFICE VISIT ESTAB PT LEVEL 4 STLMLC STLMLC [id number] [facility] 2020-06-02 00:00:00 2020-06-02 00:00:00 (TEL) STLMLC STLMLC [id number] [facility] 2020-05-28 00:00:00 2020-05-28 00:00:00 (TEL) STLMLC STLMLC [id number] [facility] 2020-03-20 00:00:00 2020-03-20 00:00:00 Outpatient STLMLC STLMLC [id number] [facility] 2019-12-13 00:00:00 2019-12-13 00:00:00 Outpatient STLMLC STLMLC [id number] [facility] 2019-12-12 00:00:00 2019-12-12 00:00:00 Outpatient STLMLC STLMLC [id number] [facility] 2019-11-06 09:54:00 2019-11-06 09:54:00 [facility] [id number] [facility] 2019-11-04 13:40:00 2019-11-04 13:40:00 [facility] [id number] [facility] 2019-05-02 08:18:00 2019-05-02 08:18:00 [facility] [id number] [facility] 2019-04-03 09:30:00 2019-04-03 09:30:00 [facility] [id number] [facility] 2019-03-20 09:15:00 2019-03-20 09:15:00 [facility] [id number] [facility] 2019-03-19 16:57:00 2019-03-19 16:57:00 [facility] [id number] [facility] 2018-12-25 13:15:00 2018-12-25 13:15:00 [facility] [id number] [facility] 2018-09-24 14:00:00 2018-09-24 14:00:00 Outpatient [facility] [id number] [facility] 2018-08-22 14:45:00 2018-08-22 14:45:00 Outpatient [facility] [id number] [facility] 2018-05-08 13:15:00 2018-05-08 13:15:00 Outpatient [facility] [id number] [facility] 2017-10-04 11:00:00 2017-10-04 11:00:00 Outpatient [facility] [id number] [facility] 2017-06-01 10:30:00 2017-06-01 10:30:00 Outpatient [facility] [id number] [facility] Results Test Description Test Time Test Comments Results Result Co mments Source TSH, THIRD [id number] 07:26:00* Test Item Value Reference Range Interpretation Comme nts TSH, THIRD GENERATION (test code = 2821) 2.590 UIU/ML 0.400-4.100 COMPREHENSIVE METABOLIC [id number] 07:20:05* Test Item Value Reference Range Interpretation Comme nts GLUCOSE (test code = 2217) 101 MG/DL 70-99 H BUN (test code = 2208) 13 MG/DL 6-20 CREATININE (test code = 2214) 1.07 MG/DL 0.80-1.40 eGFR (2020 CKD-EPI) (test co de = 90016) 95 ML/MIN/1.73 >60 CALC BUN/CREAT (test code = 2235) 12 RATIO 6-28 SODIUM (test code = 2231) 142 MEQ/L 133-146 POTASSIUM (test code = 2228) 4.7 MEQ/L 3.5-5.4 CHLORIDE (test code = 2215) 104 MEQ/L 95-107 CARBON DIOXIDE (test code = 2206) 26 MEQ/L 19-31 CALCIUM (test code = 2209) 9.6 MG/DL 8.5-10.5 PROTEIN, TOTAL (test code = 2228) 7.0 G/DL 6.1-8.3 ALBUMIN (test code = 2200) 4.6 G/DL 3.5-5.2 CALC GLOBULIN (test code = 2240) 2.4 G/DL 1.9-3.7 CALC A/G RATIO (test code = 223) 1.9 RATIO 1.0-2.6 BILIRUBIN, TOTAL (test code = 2206) 0.3 MG/DL <=1.2 ALKALINE PHOSPHATASE (test code = 2203) 51 U/L 40-112 AST (test code = 2218) 11 U/L 9-50 ALT (test code = 221) 19 U/L 5-50 LIPID [id number] 07:20:05* Test Item Value Reference Range Interpretation Comme nts CHOLESTEROL (test code = 0) 179 MG/DL <200 TRIGLYCERIDES (test code = 2232) 150 MG/DL <150 H HDL CHOLESTEROL (test code = 2219) 36 MG/DL >39 L CALC LDL CHOL (test code = 2236) 117 MG/DL <100 H NOTE: CALCULATED LDL IS BASED ON TIARA-XAVIER METHOD WHICHINCLUDES ADJUSTABLE TRIGLYCERIDE:VLDL CHOLESTEROL RATIO.THIS FACTOR VARIES BY MEASURED TRIGLYCERIDE AND NON-HDLCHOLESTEROL CONCENTRATIONS WITH INCREASED CALCULATED LDL SEENIN HIGHER TRIGLYCERIDE OR LOWER NON-HDL SPECIMENS. FOR MOREINFORMATION, SEE CLIENT ANNOUNCEMENT AT [email or web address] RISK RATIO LDL/HDL (test code = 2237) 3.25 RATIO <3.55 CBC W/AUTO DIFF WITH [id number] 04:20:56* Test Item Value Reference Range Interpretation [...] = 1065) 0.0 /100 WBC'S See_Comment [Automated [employer]] The system which generated this result transmitted [...] 0.00-0.10 ABS NUCLEATED RBCS (test code = 56399) 0.00 K/UL 0.00-0.11 HEMOGLOBIN [id number] 04:19:30* Test Item Value Reference Range Interpretation Comme nts HEMOGLOBIN A1c (test code = 95711) 5.3 % 4.2-5.6 UNLESS OTHERWISE INDICATED, ALL TESTING PERFORMED AT [facility] [address] [place] [address] DIRECT[employer]: AKSHAT MOORE M.D. CLIA NUMBER [id number] [facility] [place]. [id number] CBC W/AUTO [id number] 00:00:00* Test Item Value Reference Range Interpretation Comme nts NUCLEATED RBCS (test code = 52762-0) 0.0 /100 WBC'S See_Comment [Automated [employer]] The system which generated this result transmitted reference range: 0.0 /100 WBC'S. The reference range was not used to interpret this result as normal/abnormal. ABSOLUTE EOSINOPHILS (test code = 83904-3) 0.09 K/UL See_Comment [Automated messa ge] The system which generated this result transmitted reference range: 0.00-0.50 K/UL. The reference range was not used to interpret this result as normal/abnormal. ABSOLUTE LYMPHOCYTES (test code = 01471-1) 3.74 K/UL See_Comment [Automated messa ge] The system which generated this result transmitted reference range: 1.00-4.00 K/UL. The reference range was not used to interpret this result as normal/abnormal. ABSOLUTE MONOCYTES (test code = 06185-4) 0.48 K/UL See_Comment [Automated messa ge] The system which generated this result transmitted reference range: 0.20-1.00 K/UL. The reference range was not used to interpret this result as normal/abnormal. ABSOLUTE NEUTROPHILS (test code = 75406-6) 5.32 K/UL See_Comment [Automated messa ge] The system which generated this result transmitted reference range: 1.50-7.50 K/UL. The reference range was not used to interpret this result as normal/abnormal. BASOPHILS (test code = 58879-1) 0.6 % EOSINOPHILS (test code = 43371-8) 0.9 % HEMATOCRIT (test code = 88181-5) 45.2 % See_Comment [Automated messa ge] The [...] result as normal/abnormal. LYMPHOCYTES (test code = 38705-4) 38.5 % MCH (test code = 58295-8) 30.2 PG See_Comment [Automated messa ge] The system which generated this result transmitted reference range: 25.0-33.0 PG. The reference range was not used to interpret this result as normal/abnormal. MCHC (test code = 41899-3) 34.3 G/DL See_Comment [Automated messa ge] The system which generated this result transmitted reference range: 31.0-36.0 G/DL. The reference range was not used to interpret this result as normal/abnormal. MCV (test code = 49061-7) 88.1 fL See_Comment [Automated messa ge] The system which generated this result transmitted reference range: 80.0-99.0 fL. The reference range was not used to interpret this result as normal/abnormal. MONOCYTES (test code = 14187-4) 4.9 % NEUTROPHILS (test code = 07846-9) 54.8 % PLATELET COUNT (test code = 67985-6) 295 K/UL See_Comment [Automated messa ge] The system which generated this result transmitted reference range: 130-400 K/UL. The reference range was not used to interpret this result as normal/abnormal. RBC (test code = 39459-2) 5.13 M/UL See_Comment [Automated messa ge] The system which generated this result transmitted reference range: 4.50-6.10 M/UL. The reference range was not used to interpret this result as normal/abnormal. RDW (test code = 06627-6) 12.7 % See_Comment [Automated messa ge] The system which generated this result transmitted reference range: 11.5-15.0 %. The reference range was not used to interpret this result as normal/abnormal. WBC (test code = 41629-0) 9.7 K/UL See_Comment [Automated messa ge] The system which generated this result transmitted reference range: 3.5-11.0 K/UL. The reference range was not used to interpret this result as normal/abnormal. TSH, THIRD [id number] 06:43:12* Test Item Value Reference Range Interpretation Comme nts TSH, THIRD GENERATION (test code = 2821) 2.850 UIU/ML 0.400-4.100 UNLESS OTHERWISE INDICATED, [facility] [address] [place] [address] DIRECTOR [employer]: SUSANNAH GROSS M.D. CLIA NUMBER [id number] [place]. [id number] COMPREHENSIVE METABOLIC [id number] 05:30:01* Test Item Value Reference Range Interpretation Comme nts GLUCOSE (test code = 2217) 89 MG/DL 70-99 BUN (test code = 2207) 11 MG/DL 6-20 CREATININE (test code = 2213) 1.05 MG/DL 0.80-1.40 eGFR (2020 CKD-EPI) (test code = 11164) 98 ML/MIN/1.73 >60 CALC BUN/CREAT (test code = 2234) 10 RATIO 6-28 SODIUM (test code = 2230) 147 MEQ/L 133-146 H POTASSIUM (test code = 2227) 4.9 MEQ/L 3.5-5.4 CHLORIDE (test code = 2214) 109 MEQ/L 95-107 H CARBON DIOXIDE (test code = 2205) 25 MEQ/L 19-31 CALCIUM (test code = 2208) 9.7 MG/DL 8.5-10.5 PROTEIN, TOTAL (test code = 2228) 7.0 G/DL 6.1-8.3 ALBUMIN (test code = 2200) 4.5 G/DL 3.5-5.2 CALC GLOBULIN (test code = 2239) 2.5 G/DL 1.9-3.7 CALC A/G RATIO (test code = 2233) 1.8 RATIO 1.0-2.6 BILIRUBIN, TOTAL (test code = 2206) 0.6 MG/DL See_Comment [Automated me ssage] The system which generated this result transmitted reference range: <=1.2. The reference range was not used to interpret this result as normal/abnormal. ALKALINE PHOSPHATASE (test code = 2203) 56 U/L 40-115 AST (test code = 2217) 14 U/L 9-50 ALT (test code = 2218) 18 U/L 5-50 LIPID [id number] 05:30:01* Test Item Value Reference Range Interpretation [...] SPECIMENS. FOR MOREINFORMATION, SEE CLIENT ANNOUNCEMENT AT [email or web address] RATIO LDL/HDL (test code = 2238) 2.72 RATIO <3.55 HEMOGLOBIN [id number] 03:39:22* Test Item Value Reference Range Interpretation Comme nts HEMOGLOBIN A1c (test code = 24653) 5.3 % 4.2-5.6 CBC W/AUTO DIFF WITH [id number] 02:23:36* Test Item Value Reference Range Interpretation [...] 0.00-0.10 ABS NUCLEATED RBCS (test code = 11170) 0.00 K/UL 0.00-0.11
[2024-04-13 01:42] LABS: SARS-CoV-2 Antigen CONTROL BLUE LINE VIS/BG OK; SARS-CoV-2 Antigen Rapid Res Negative (Negative)
[2024-04-13] MEDS ORDERED: NA CHLORIDE 0.9% 1,000 ML ONE (02:31)
[2024-04-13 02:46] LABS: Absolute Basophils 0.1 K/uL (0-0.5); Absolute Neutrophil 6.2 K/uL (1.8-8.0); Basophils % 0.6 % (0-1.3); Eosinophils % 0.3 % (0-4.4); Hemoglobin 13.9 g/dL (13.6-17.9); Lymphocytes % 29.2 % (15.3-44.8); MCH 29.7 pg (27.0-35.0); MCHC 34.8 g/dL (32.0-36.0); MCV 85.5 fL (80-100); MPV 7.6 fL (7.6-11.3); Monocytes % 9.5 % (3.3-12.3); Neutrophils % 60.4 % (41.7-73.7); Nucleated Red Blood Cells % 0.1 % (0-0); Platelets 262 thou/uL (152-406); RBC Red Blood Cell Count 4.68 M/uL (4.33-5.43); Red Cell Distribution Width 13.3 % (12.1-15.2)
[2024-04-13 03:00] LABS: Anion Gap 10.7 mEq/L (5.0-15.0); Potassium 3.7 mEq/L (3.5-5.1)
--- NOTE | 2024-04-13 03:42 | ER ---
Nurse's Notes [facility] Name: Kenton Asencio Age: 33 yrs Sex: Male : 1990 Arrival Date: 04/13/2024 Time: 00:23 Bed 16 Private MD: Diagnosis: Mild persistent asthma with (acute) exacerbation;Viral infection, unspecified Presentation: 04/13 00:55 Chief complaint: Patient states: cough, fever, congestion, body aches 5 days. swollen lg3 lymph node treated with abx X5 days with no resolution. Coronavirus screen: Client denies travel out of the [place] in the last 14 days. Client presents with at least one sign or symptom that may indicate coronavirus-19. Standard/surgical mask placed on the client. Ebola Screen: No symptoms or risks identified at this time. Initial Sepsis Screen: Does the patient meet any 2 criteria? No. Patient's initial sepsis screen is negative. Does the patient have a suspected source of infection? No. Patient's initial sepsis screen is negative. Risk Assessment: Do you want to hurt yourself or someone else? Patient reports no desire to harm self or others. Onset of symptoms was April 04, 2024. 00:55 Method Of Arrival: Ambulatory lg3 00:55 Acuity: MEREDITH 3 lg3 Triage Assessment: 00:58 General: Appears in no apparent distress. uncomfortable, Behavior is calm, cooperative. lg3 Pain: Complains of pain in right jaw. EENT: No deficits noted. Neuro: No deficits noted. Cunningham Agitation-Sedation Scale (RASS): 0 - Alert and Calm Level of Consciousness is awake, alert, obeys commands, Oriented to person, place, time, situation. Cardiovascular: No deficits noted. Denies chest pain, Capillary refill < 3 seconds Clubbing of nail beds is absent JVD is absent Patient's skin is warm and dry. Respiratory: Reports shortness of breath cough that is Airway is patent Respiratory effort is even, unlabored, Respiratory pattern is regular, symmetrical, Onset: The symptoms/episode began/occurred 5 days ago, the patient has mild shortness of breath. GI: No deficits noted. Abdomen is round non-distended, obese. : No signs and/or symptoms were reported regarding the genitourinary system. Derm: No deficits noted. Skin is intact, is healthy with good turgor, Skin is dry, Skin is normal, Skin temperature is warm. Musculoskeletal: No deficits noted. Circulation, motion, and sensation intact. Range of motion: intact in all extremities. Historical: - Allergies: 00:58 No Known Allergies; lg3 - Home Meds: 00:58 Trazodone Oral [Active]; Omeprazole Oral [Active]; Topamax Oral [Active]; lg3 - PMHx: 00:58 Asthma; Hypercholesterolemia; lg3 - PSHx: 00:58 None; lg3 - Immunization history:: Adult Immunizations up to date. - Infectious Disease History:: Denies. - Social history:: Smoking status: Patient denies any tobacco usage or history of. Patient/guardian denies using alcohol, street drugs. Screenin:16 [facility] ED Fall Risk Assessment (Adult) History of falling in the last 3 months, dd2 including since admission No falls in past 3 months (0 pts) Confusion or Disorientation No (0 pts) Intoxicated or Sedated No (0 pts) Impaired Gait No (0 pts) Mobility Assist Device Used No (0 pt) Altered Elimination No (0 pt) Score/Fall Risk Level 0 - 2 = Low Risk Oriented to surroundings, Maintained a safe environment, Educated pt \T\ family on fall prevention, incl call for assistance when getting out of bed, Assessed \T\ reinforced patient's understanding of fall precautions, Hourly rounding (assess needs \T\ fall precautionary measures) done. Abuse screen: Denies threats or abuse. Nutritional screening: No deficits noted. Tuberculosis screening: No symptoms or risk factors identified. Assessment: 01:47 General: Appears in no apparent distress. uncomfortable, Behavior is calm, cooperative, dd2 appropriate for age. Neuro: No deficits noted. Cunningham Agitation-Sedation Scale (RASS): 0 - Alert and Calm Level of Consciousness is awake, alert, obeys commands, Oriented to person, place, time, situation. Cardiovascular: Denies chest pain, Patient's skin is warm and dry. Rhythm is regular. Respiratory: Reports shortness of breath at rest on exertion Airway is patent Respiratory effort is even, unlabored, Respiratory pattern is regular, symmetrical, Breath sounds are clear bilaterally. Onset: The symptoms/episode began/occurred X 5 DAYS AGO, the patient has mild shortness of breath. GI: No deficits noted. No signs and/or symptoms were reported involving the gastrointestinal system. Abdomen is non-distended, obese, Abd is soft and non tender X 4 quads. : No deficits noted. No signs and/or symptoms were reported regarding the genitourinary system. EENT: No deficits noted. No signs and/or symptoms were reported regarding the EENT system. Derm: No deficits noted. No signs and/or symptoms reported regarding the dermatologic system. Musculoskeletal: No deficits noted. No signs and/or symptoms reported regarding the musculoskeletal system. Circulation, motion, and sensation intact. Range of motion: intact in all extremities. 01:48 Pain: Complains of pain in right jaw. dd2 Vital Signs: 00:55 BP 121 / 75; Pulse 118; Resp 16; Temp 100.1(O); Pulse Ox 100% on R/A; Weight 125.65 kg lg3 (R); Height 5 ft. 5 in. (R); 01:15 BP 117 / 74; dd2 01:19 BP 117 / 74 RA (auto/lg); Pulse 111; Temp 99.7(O); Pulse Ox 97% on R/A; sa1 02:59 BP 125 / 82; Pulse 108; Resp 16; Pulse Ox 99% on R/A; dd2 04:04 BP 115 / 79; Pulse 97; Resp 16; Temp 99.2(O); Pulse Ox 98% on R/A; dd2 00:55 Body Mass Index 46.09 (125.65 kg, 165.1 cm) lg3 ED Course: 00:25 Patient arrived in ED. gm2 00:58 Triage completed. lg3 00:58 Arm band placed on right wrist. lg3 01:03 SARS RAPID Sent. vc1 01:03 Flu Sent. vc1 01:15 COMPA CALVO, RN is Primary Nurse. dd2 01:16 Patient has correct armband on for positive identification. Bed in low position. Call dd2 light in reach. Side rails up X 1. Client placed on continuous cardiac and pulse oximetry monitoring. NIBP monitoring applied. Door closed. Noise minimized. Pillow given. Verbal reassurance given. 01:16 No provider procedures requiring assistance completed. Patient maintains SpO2 dd2 saturation greater than 95% on room air. 01:23 SARS RAPID Sent. kmf 01:23 Flu Sent. kmf 02:05 Oei, Chance, MD is Attending Physician. bo1 02:25 Inserted saline lock: 20 gauge antecubital area, using aseptic technique. Blood sa1 collected. Flushed with 10 mL NS. 02:25 Initial lab(s) drawn, by me, sent to lab. sa1 02:41 BMP Sent. sa1 02:41 CBC with Diff Sent. sa1 02:53 Chest Pa And Lat (2 Views) XRAY In Process Unspecified. EDMS 04:04 Provided Education on: D/C EDUCATION. dd2 04:04 IV discontinued, intact, bleeding controlled, No redness/swelling at site. Pressure dd2 dressing applied. Administered Medications: 02:54 Drug: NS 0.9% IV 1000 ml IV at 1000 ml once; to be given as a bolus over 60 minutes dd2 Route: IV; Rate: 1000 ml; Site: right antecubital; 04:04 Follow up: IV Status: Completed infusion; IV Intake: 1000ml dd2 04:04 Drug: predniSONE PO 40 mg PO once Route: PO; dd2 04:04 Follow up: Response: Medication administered at discharge. dd2 Medication: 01:16 VIS not applicable for this client. dd2 Intake: 04:04 IV: 1000ml; Total: 1000ml. dd2 Outcome: 03:42 Discharge ordered by . bo1 04:04 Discharged to home ambulatory, dd2 04:04 Condition: stable 04:04 Discharge instructions given to patient, Instructed on discharge instructions, follow up and referral plans. medication usage, Demonstrated understanding of instructions, follow-up care, medications, Prescriptions given X 2, 04:06 Patient left the ED. dd2 Signatures: Dispatcher [employer] EDAshley Aguilar RN RN lg3 Roma Godinez RN RN Zoraida Lawler 2 [facility] Chance Eastman MD MD bo1 Abdullah, Sultan sa1 DAVIS, DIANA, RN RN dd2 Corrections: (The following items were deleted from the chart) 01:49 01:47 General: Appears in no apparent distress. uncomfortable, Behavior is calm, dd2 cooperative, appropriate for age, dd2
--- NOTE | 2024-04-13 03:42 | EDPHYS ---
Physician Documentation [facility] Name: Kenton Asencio Age: 33 yrs Sex: Male : 1990 Arrival Date: 04/13/2024 Time: 00:23 Bed 16 Private MD: ED Physician Chance Eastman HPI: 04/13 02:20 This 33 yrs old Male presents to ER via Ambulatory with complaints of bo1 Breathing Difficulty. 02:20 The patient has shortness of breath at rest, and the patient has a history of asthma, bo1 On albuterol HFA. Onset: The symptoms/episode began/occurred gradually, today. Hx of an URI about 2 weeks ago, treated with azithromycin and is not better. Course is just finished. Hx of right sided post neck lymph node. 03:36 Pt states he feels like he cannot swallow. bo1 Historical: - Allergies: 00:58 No Known Allergies; lg3 - Home Meds: 00:58 Trazodone Oral [Active]; Omeprazole Oral [Active]; Topamax Oral [Active]; lg3 - PMHx: 00:58 Asthma; Hypercholesterolemia; lg3 - PSHx: 00:58 None; lg3 - Immunization history:: Adult Immunizations up to date. - Infectious Disease History:: Denies. - Social history:: Smoking status: Patient denies any tobacco usage or history of. Patient/guardian denies using alcohol, street drugs. ROS: 03:34 Constitutional: Negative for fever, chills, and weight loss bo1 03:34 Neck: Positive for pain at rest, swollen nodes, Awilda the right side just under the ear, 03:34 Cardiovascular: Positive for chest pain, of the chest - left ribs, Negative for palpitations, 03:34 Respiratory: Positive for cough, Negative for shortness of breath, wheezing, 03:34 Abdomen/GI: Negative for abdominal pain, nausea and vomiting, Exam: 03:36 Constitutional: This is a well developed, well nourished patient who is awake, alert, bo1 and in no acute distress. 03:36 Constitutional: The patient appears in no acute distress, alert, awake, comfortable, non-toxic, obese, 03:36 Neck: External neck: mass, that is small, of the right side of neck posterior/under bo1 right ear, 03:36 Chest/axilla: Inspection: normal, no acute changes, 03:36 Cardiovascular: Rate: normal, Rhythm: regular, Pulses: no pulse deficits are appreciated, 03:36 Respiratory: the patient does not display signs of respiratory distress, Respirations: normal, no acute changes, Breath sounds: are clear throughout, wheezing: is not appreciated, 03:36 Abdomen/GI: Palpation: abdomen is soft and non-tender, Vital Signs: 00:55 BP 121 / 75; Pulse 118; Resp 16; Temp 100.1(O); Pulse Ox 100% on R/A; Weight 125.65 kg lg3 (R); Height 5 ft. 5 in. (R); 01:15 BP 117 / 74; dd2 01:19 BP 117 / 74 RA (auto/lg); Pulse 111; Temp 99.7(O); Pulse Ox 97% on R/A; sa1 02:59 BP 125 / 82; Pulse 108; Resp 16; Pulse Ox 99% on R/A; dd2 04:04 BP 115 / 79; Pulse 97; Resp 16; Temp 99.2(O); Pulse Ox 98% on R/A; dd2 00:55 Body Mass Index 46.09 (125.65 kg, 165.1 cm) lg3 MDM: 02:05 Medical Screening Exam initiated bo1 03:37 Differential diagnosis: Viral illness, asthma exacerbation. Data reviewed: vital signs, bo1 lab test result(s), radiologic studies, plain films, Prelim read by myself, Yan MENESES reading pending. ED course: CXR: Negative. 04/13 00:58 Order name: Flu; Complete Time: 03:03 3 04/13 00:58 Order name: SARS RAPID; Complete Time: 03:03 3 04/13 01:52 Order name: CBC with Diff; Complete Time: 03:03 3 04/13 01:52 Order name: BMP; Complete Time: 03:03 3 04/13 02:20 Order name: Chest Pa And Lat (2 Views) XRAY bo1 Administered Medications: 02:54 Drug: NS 0.9% IV 1000 ml IV at 1000 ml once; to be given as a bolus over 60 minutes dd2 Route: IV; Rate: 1000 ml; Site: right antecubital; 04:04 Follow up: IV Status: Completed infusion; IV Intake: 1000ml dd2 04:04 Drug: predniSONE PO 40 mg PO once Route: PO; dd2 04:04 Follow up: Response: Medication administered at discharge. dd2 Disposition Summary: 04/13/24 03:42 Discharge Ordered Notes: Location: Home bo1 Problem: an acute exacerbation bo1 Symptoms: are unchanged bo1 Condition: Stable bo1 Diagnosis - Mild persistent asthma with (acute) exacerbation bo1 - Viral infection, unspecified bo1 Followup: bo1 - With: Private Physician - When: Upon discharge from the Emergency Department - Reason: Recheck today's complaints, Continuance of care Discharge Instructions: - Discharge Summary Sheet bo1 - Asthma, Adult bo1 - Viral Illness, Adult bo1 Forms: - Medication Reconciliation Form bo1 - Antibiotic Education bo1 - Prescription Opioid Use bo1 - Patient Portal Instructions bo1 - Leadership Thank You Letter bo1 Prescriptions: - Tessalon Perles 100 mg Oral capsule - take 1 capsule ORAL route every 8 hours As needed; 30 capsule; Refills: 0, bo1 Product Selection Permitted - Prednisone 20 mg Oral Tablet - take 2 tablets ORAL route once daily for 5 days; 10 tablet; Refills: 0, Product bo1 Selection Permitted Signatures: Dispatcher [employer] EDAshley Aguilar RN RN lg3 Chance Eastman MD MD bo1 COMPA CALVO RN RN dd2 Corrections: (The following items were deleted from the chart) 01:52 01:52 CBC+H.LAB.BRZ ordered. EDMS EDMS 01:52 01:52 BASIC METABOLIC PANEL+C.LAB.BRZ ordered. EDMS EDMS
[2024-04-13] MEDS ORDERED: predniSONE 20 MG TAB ONE (03:58)
[2024-04-13 04:56] VITALS: BP 115/79; TEMP 99.2; O2SAT 98
--- NOTE | 2024-04-13 06:00 | RAD REPORT ---
PROCEDURE: XR Chest, 2 Views CLINICAL INDICATION: The patient is 33 years old and is Male; Congestion, cough. TECHNIQUE: Frontal and lateral views of the chest. COMPARISON: None. FINDINGS: LUNGS: Relatively low lung volumes bilaterally. Allowing for this and patient positioning, no focal consolidation. PLEURAL SPACE: No appreciable pleural effusion or pneumothorax. HEART: Unremarkable No cardiomegaly. MEDIASTINUM: Unremarkable Normal mediastinal contour. BONES/JOINTS: No acute osseous abnormality. IMPRESSION: No acute findings in the chest. Electronically signed by: Ananth Rodas MD 04/13/2024 05:48 AM [facility] Due to temporary technical issues with the [employer] reporting system, reports are being ifeoma d by the in-house radiologist without review as a courtesy to ensure prompt reporting the interpreting radiologist is fully responsible for the content of the report. Transcribed Date/Time: 04/13/2024 6:00 AM
== END 2024-04-13 04:06 | disposition home or self-care (01) ==
LOC: ER 00:23
DX: J45.31 Mild persistent asthma with (acute) exacerbation (principal); B34.9 Viral infection, unspecified; Z11.52 Encounter for screening for COVID-19
CPT/HCPCS: 85025; 80048; 36415; 87804 ×2; 71046; 96360; 99284; 87811; J7512; J7030